=== PATIENT | male | born 1960 | race Hispanic/Latino ===

== ENCOUNTER 2018-04-25 11:43 | Inpatient (IN) | payer MEDICARE ==
[2018-04-25 11:44] VITALS: BMI 27.4
[2018-04-25 13:46] LABS: BASO % 0.5 % (0.0-2.0); EOS % 0.6 % (0.0-4.0); HEMOGLOBIN 14.3 g/dL (12.0-18.0); LYMPH # 1.4 K/uL (1.0-4.3); LYMPH % 24.7 % (20.0-40.0); MEAN CELL VOLUME 86.8 fl (80.0-94.0); MEAN CORPUSCULAR HEMOGLOBIN 29.4 pg (27.0-31.0); MEAN CORPUSCULAR HGB CONC 33.9 g/dL (33.0-37.0); MEAN PLATELET VOLUME 9.2 fl (7.2-11.7); MONO # 0.8 K/uL (0.0-0.8); MONO % 12.9 % (0.0-10.0); NEUT # 3.6 K/uL (1.8-7.0); NEUT % 61.3 % (50.0-75.0); NRBC % 0.1 % (0.0-0.0); RBC 4.85 Mil/uL (4.40-5.90); RED CELL DISTRIBUTION WIDTH 15.6 % (11.5-14.5); WHITE BLOOD COUNT 5.8 K/uL (4.8-10.8)
[2018-04-25 13:56] LABS: ALB/GLOB RATIO 1.3 (1.0-2.1); ALBUMIN 4.1 g/dL (3.5-5.0); ALT/SGPT 28 U/L (21-72); AST/SGOT 16 U/L (17-59); BLOOD UREA NITROGEN 15 mg/dl (9-20); CALCIUM 9.2 mg/dL (8.4-10.2); GFR AFRICAN-AMERICAN > 60; GFR NON-AFRICAN AMERICAN 57
[2018-04-25 14:03] LABS: BARBITURATES, UR NEGATIVE (NEGATIVE); BENZODIAZEPINES, UR NEGATIVE (NEGATIVE); OPIATES, UR NEGATIVE (NEGATIVE); PHENCYCLIDINE, UR NEGATIVE (NEGATIVE); URINE BILIRUBIN NEGATIVE (NEGATIVE); URINE BLOOD NEGATIVE (NEGATIVE); URINE CLARITY CLEAR (Clear); URINE COLOR STRAW (YELLOW); URINE GLUCOSE (UA) NEG (Normal); URINE LEUKOCYTE ESTERASE NEG Leu/uL (Negative); URINE PROTEIN NEGATIVE (NEGATIVE); URINE UROBILINOGEN 0.2-1.0 mg/dL (0.2-1.0)
[2018-04-25] MEDS ORDERED: Bismuth Subsalicylate 262 mg/15 ml Sus (240 ml) PO PRN (14:11)
[2018-04-25] MEDS ORDERED: Magnesium Hydroxide Susp 30 ml UD PO PRN (14:11)
[2018-04-25] MEDS ORDERED: Alum-Mag Hydrox-Simethicone Susp (30 mL) PO PRN (14:11)
--- NOTE | 2018-04-25 14:43 | RAD ---
HISTORY: clearance COMPARISON: No prior. FINDINGS: LUNGS: The lungs are well inflated and clear. No pleural effusion or pneumothorax. PLEURA: No significant pleural effusion identified, no pneumothorax apparent. CARDIOVASCULAR: Normal. OSSEOUS STRUCTURES: No significant abnormalities. VISUALIZED UPPER ABDOMEN: Normal. OTHER FINDINGS: None. IMPRESSION: No active pulmonary disease.
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
--- NOTE | 2018-04-25 18:23 | PCM.BM ---
<Marilyn Welsh - Last Filed: 04/25/18 18:21> Treatment assets and liabiliti Patient Assests: ADL independent, good past tx response Patient Liabilities: relationship conflicts - Milieu Protocol Maintain good personal hygiene: daily Encourage regular showers, every shift Remind patient to perform daily oral care, every shift Assist patient to perform ADL's Conduct patient checks and document Observation sheet: Q15 minutes Maintain personal safety: every shift Educate patient to report safety concerns to staff, every shift Monitor environment for contraband/sharps Medication safety: Monitor for expected outcome, potential side effects: every shift, Assess barriers to learning: every shift, Assess readiness for medication education: every shift <Mariza Dempsey - Last Filed: 04/27/18 14:56> Treatment assets and liabiliti Patient Assests: adapts well, cooperative, educated, insightful, motivated, ADL independent, good support system (limited- SERV staff/AA peers identified as primary supports), negotiates basic needs, good past tx response Patient Liabilities: poor support system (no significant communication with family ; discord with residential peer), relationship conflicts Family Contact Family involvement: Famliy/SO not involved - Outside Agency Agency 1 Care involvment: Following patient during stay, Information-sharing, Other Agency contact name: [facility] Agency contact number: [phone] - Goals for Treatment Patient goals for treatment: Patient to continue stabilization on 3NP through medication management and group/supportive therapy to improve sxs of depression , alleviate OCD, and eliminate SI. Patient to be encouraged to attend groups regularly to promote self-awareness, maintained sobriety, and improve insight, compliance, coping skills and self-esteem. Patient to be provided with referral for appropriate level of aftercare to reduce risk of future hospitalizations and ensure safety in the community. Discharge/Continuing Care - Education Needs Education Needs: Patient Medication, Patient Coping Skills, Patient Community resources, Patient Aftercare Safety Plan - Discharge Discharge Criteria: Tolerates medication w/o severe side effects, Free of Suicidal thoughts, Free of paranoid thoughts, Free of agitation, Normal sleep pattern, Ability to care for self, Reduction of target symptoms Discharge to:: Retirement <Jp Hawkins - Last Filed: 04/28/18 12:01> Discharge/Continuing Care - Treatment Team Participation Patient/Family/SO Statement: 04/28/18 12:01 Pt was seen in treatment team today. Pt presented as depressed with lethargic psychomotor movements with slow, soft speech and poor eye contact. Pt denied current depression despite this presentation and said that the Klonopin has been helpful. Dr. Virk explained that his Wellbutrin will be lowered and the Anafranil will be raised to a target of 100mg. Pt reported feeling better than on admission, but agreed that continued stay was needed. Pt reported he sees Dr. Sumner in [place] for outpatient treatment and would like to continue to see him upon discharge. Discussed with Family/SO: No Was Patient/Family/SO present at Treatment Team Meeting: Yes <Jozef Martinez - Last Filed: 05/02/18 12:01> - Diagnosis (1) Depression Status: Acute Interventions: psychotherapy, pharmacotherapy 05/02/18 12:00
[2018-04-25 19:41] VITALS: O2SAT 98
[2018-04-26] MEDS: Levothyroxine 88 MCG TAB PO SCH (06:39)
[2018-04-26] MEDS ORDERED: buPROPion SR 150 MG TABLET PO SCH (09:00)
[2018-04-26 10:25] LABS: T4 7.34 ug/dl (5.5-11.0)
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
--- NOTE | 2018-04-26 17:25 | CARD ---
APPROVED REPORT EKG Measurement Heart [id number] <Conclusion> Sinus bradycardia Otherwise normal ECG
[2018-04-26] MEDS: Pravastatin Sodium 40 MG TAB PO SCH ×3 (21:09→21:52)
[2018-04-26 21:20] LABS: FOLATE 8.9 ng/mL
[2018-04-27] MEDS: Levothyroxine 88 MCG TAB PO SCH (06:54)
--- NOTE | 2018-04-27 16:09 | PCM.PYCHPN ---
Psychiatric Progress Note - Psychiatric Progress Note Patient seen today, length of contact: pt evaluated discussed with team chart reviewed Patient Chief Complaint: I could not control my anxiety Problems Identified/Issues Discussed: pt evaluated, presenting with anxious and depressed mood, constricted affect, dysphoric , stated at times exhausted because of the OBSESSIVE AND compulsive rituals, continues to be paranoid and guarded, discussed increasing dose of klonopin , also cross titrating wellbutrin with clomipramine. no reported current side effects, encouraged to attend groups , CBt provided pt denied any current active suicidal ideation denied command hallucinations Medical Problems: multiple inpatient hospitalizations since age 24 DSM 5 Symptoms Update: major depression OCD Medication Change: Yes (increase clomipramine) Medical Record Reviewed: Yes Mental Status Examination - Cognitive Function Orientation: Person, Place, Situation Memory: Intact Attention: WNL Concentration: Poor Association: WNL Fund of Knowledge: WNL Decription of patient's judgement and insights: partial insight poor judgment - Mood Mood: Depressed, Anxious - Affect Affect: Constricted, Depressed - Speech Speech: Soft - Formal Thought Process Formal Thought Process: Paranoia, Circumstantial Psychotic Thoughts and Behaviors: pt reported paranoid delusions towards other peers - Suicidal Ideation Suicidal Ideation: No - Homicidal Ideation Homicidal Ideation: No Goal/Treatment Plan - Goal/Treatment Plan Need for Continued Stay: Remain at risks for inpatient hospitalization, Severe depression anxiety, Discharge may exacerbated symptoms Progress Toward Problem(s) and Goals/Treatment Plan: increase clomipramine 50mg qhs, increase gradually decrease wellbutrin 75mg daily seroquel 150mg qhs increase gradually klonopin 0.5mg tid CBT group and supportive therapy
[2018-04-27] MEDS: Pravastatin Sodium 40 MG TAB PO SCH (21:04)
[2018-04-28] MEDS: Levothyroxine 88 MCG TAB PO SCH (09:50)
--- NOTE | 2018-04-28 14:02 | PCM.PYCHPN ---
Psychiatric Progress Note - Psychiatric Progress Note Patient seen today, length of contact: pt evaluated discussed with team chart reviewed Patient Chief Complaint: I am less anxious with the klonopin but I still feel down Problems Identified/Issues Discussed: pt evaluated, with treatment team . reported mood less anxious and less paranoid yet continues to have OCD rituals and obsessions, pt continues to feel depressed, relates that to feeling disabled by anxiety and due to conflict he has at the senior care, Cbt provided , discussing with pt coping skills with anxiety , also discussed gradual cross titrating wellbutrin with clomipramine , no reported current side effects of medications pt denied any current active suicidal ideation denied command hallucinations, denied homicidal ideation Medical Problems: multiple inpatient hospitalizations since age 24 DSM 5 Symptoms Update: major depression PTSD OCD Medication Change: Yes (increase clomipramine) Medical Record Reviewed: Yes Mental Status Examination - Cognitive Function Orientation: Person, Place, Situation Memory: Intact Attention: WNL Concentration: Poor Association: WNL Fund of Knowledge: WNL Decription of patient's judgement and insights: partial insight poor judgment - Mood Mood: Depressed, Anxious - Affect Affect: Constricted, Depressed - Speech Speech: Soft - Formal Thought Process Formal Thought Process: Paranoia, Circumstantial Psychotic Thoughts and Behaviors: pt reported paranoid delusions towards other peers - Suicidal Ideation Suicidal Ideation: No - Homicidal Ideation Homicidal Ideation: No Goal/Treatment Plan - Goal/Treatment Plan Need for Continued Stay: Remain at risks for inpatient hospitalization, Severe depression anxiety, Discharge may exacerbated symptoms Progress Toward Problem(s) and Goals/Treatment Plan: increase clomipramine 50mg qhs, AND 25MG DAILY DISCONTINUE wellbutrin seroquel 150mg qhs increase gradually klonopin 0.5mg tid CBT group and supportive therapy
[2018-04-28] MEDS: Pravastatin Sodium 40 MG TAB PO SCH (21:12)
--- NOTE | 2018-04-29 09:19 | PCM.PYCHPN ---
Psychiatric Progress Note - Psychiatric Progress Note Patient seen today, length of contact: pt evaluated discussed with team chart reviewed Patient Chief Complaint: pt has remained very depressed and still obsessed with past trauma and still is high risk and still hopeless with poor insight and need further stabilization Medication Change: Yes (increase clomipramine) Medical Record Reviewed: Yes Mental Status Examination - Cognitive Function Orientation: Person, Place, Situation Memory: Intact Attention: WNL Concentration: Poor Association: WNL Fund of Knowledge: WNL - Mood Mood: Depressed, Anxious - Affect Affect: Constricted, Depressed - Speech Speech: Soft - Formal Thought Process Formal Thought Process: Paranoia, Circumstantial - Suicidal Ideation Suicidal Ideation: No - Homicidal Ideation Homicidal Ideation: No Goal/Treatment Plan - Goal/Treatment Plan Need for Continued Stay: Remain at risks for inpatient hospitalization, Severe depression anxiety, Discharge may exacerbated symptoms Progress Toward Problem(s) and Goals/Treatment Plan: will continue to titrate anafranil and seroquel as needed to stabilize depression,PTSD and OCD. D/c plans as per dr cabrales
[2018-04-29] MEDS: Levothyroxine 88 MCG TAB PO SCH (10:02)
[2018-04-29] MEDS: Pravastatin Sodium 40 MG TAB PO SCH (21:09)
[2018-04-30] MEDS: Levothyroxine 88 MCG TAB PO SCH (06:45)
[2018-04-30] MEDS: Pravastatin Sodium 40 MG TAB PO SCH (21:12)
[2018-05-01] MEDS: Levothyroxine 88 MCG TAB PO SCH (06:49)
--- NOTE | 2018-05-01 15:46 | PCM.PYCHPN ---
Psychiatric Progress Note - Psychiatric Progress Note Patient seen today, length of contact: pt evaluated discussed with team chart reviewed Patient Chief Complaint: I still feel anxious and I get paranoid Problems Identified/Issues Discussed: pt evaluated, reported continues to feel paranoid towards other patients, discussed increasing the seroquel gradually, pt reported that he has experienced less rituals and more clear mind with the clomipramine, no reported side effects, however he has decreased energy with discontinuing of the wellbutrin, discussed adding wellbutrin 75mg, will also follow up on EKG with the increase in clomipramine pt denied any current active suicidal ideation denied command hallucinations, denied homicidal ideation Medical Problems: multiple inpatient hospitalizations since age 24 DSM 5 Symptoms Update: major depression obsessive compulsive disorder post traumatic stress disorder Medication Change: Yes (increase clomipramine) Medical Record Reviewed: Yes Mental Status Examination - Cognitive Function Orientation: Person, Place, Situation Memory: Intact Attention: WNL Concentration: Poor Association: WNL Fund of Knowledge: WNL - Mood Mood: Depressed, Anxious - Affect Affect: Constricted, Depressed - Speech Speech: Soft - Formal Thought Process Formal Thought Process: Paranoia, Circumstantial - Suicidal Ideation Suicidal Ideation: No - Homicidal Ideation Homicidal Ideation: No Goal/Treatment Plan - Goal/Treatment Plan Need for Continued Stay: Remain at risks for inpatient hospitalization, Severe depression anxiety, Discharge may exacerbated symptoms Progress Toward Problem(s) and Goals/Treatment Plan: increase clomipramine 50mg qhs, AND 50 MG DAILY start wellbutrin 75 increase seroquel 200mg qhs klonopin 0.5mg tid CBT group and supportive therapy
[2018-05-01] MEDS: Pravastatin Sodium 40 MG TAB PO SCH (21:09)
[2018-05-02] MEDS: Levothyroxine 88 MCG TAB PO SCH (06:53)
--- NOTE | 2018-05-02 08:25 | CP.PCM.HP ---
History of Present Illness - History of Present Illness History of Present Illness: HPI: 57 y/o man pmh of depression, hypothyroidism, and HLD is admitted to voluntary inpatient psychiatry for major depression w/ suicidal ideation. Patient has history of previous suicide attempts and recently had plan to jump off a bridge. Patient was sent from longterm for treatment. Patient denies headaches, chest pain, SOB, abdominal pain, nausea, vomiting, diarrhea, dysuria , or fever. PMD: Dr. Valentin PMH: depression, hypothyroidism, and HLD meds: see med list allergies: penicillin PSH: none Fam: denies SOC: denies smoking, alcohol, and drugs ROS: 12 points assessed and negative unless otherwise reported in HPI Present on Admission - Present on Admission Any Indicators Present on Admission: No History of DVT/PE: No History of Uncontrolled Diabetes: No Urinary Catheter: No Decubitus Ulcer Present: No Review of Systems - Review of Systems All systems: reviewed and no additional remarkable complaints except - Constitutional Constitutional: absent: Chills, Fever, Headache - EENT Eyes: absent: Change in Vision - Cardiovascular Cardiovascular: absent: Chest Pain - Respiratory Respiratory: absent: Dyspnea - Gastrointestinal Gastrointestinal: absent: Abdominal Pain, Diarrhea, Nausea, Vomiting - Genitourinary Genitourinary: absent: Dysuria - Integumentary Integumentary: absent: Rash - Psychiatric Psychiatric: As Per HPI Past Patient History - Past Medical History & Family History Past Medical History?: Yes - Past Social History Smoking Status: Never Smoked - CARDIAC Hx Hypercholesterolemia: Yes Hx Hypertension: No - PULMONARY Hx Respiratory Disorders: No Hx Tuberculosis: No - NEUROLOGICAL Hx Seizures: No - HEENT Hx HEENT Problems: No - RENAL Hx Chronic Kidney Disease: No - ENDOCRINE/METABOLIC Hx Hypothyroidism: Yes - HEMATOLOGICAL/ONCOLOGICAL Hx Anemia: Yes Hx Human Immunodeficiency Virus (HIV): No - INTEGUMENTARY Hx Dermatological Problems: No - MUSCULOSKELETAL/RHEUMATOLOGICAL Hx Fractures: Yes (LEFT HAND) - GASTROINTESTINAL Hx Gastritis: Yes - GENITOURINARY/GYNECOLOGICAL Hx Sexually Transmitted Disorders: No - PSYCHIATRIC Hx Anxiety: Yes Hx Depression: Yes Hx Post Traumatic Stress Disorder: Yes - SURGICAL HISTORY Hx Surgeries: No - ANESTHESIA Hx Anesthesia: No Hx Anesthesia Reactions: No Hx Malignant Hyperthermia: No Meds Allergies/Adverse Reactions: Allergies Allergy/AdvReac Type Severity Reaction Status Date / Time Penicillins Allergy RASH Verified 04/25/18 12:10 Physical Exam - Constitutional Appears: Non-toxic, No Acute Distress - Head Exam Head Exam: ATRAUMATIC, NORMAL INSPECTION, NORMOCEPHALIC - Eye Exam Eye Exam: Normal appearance - ENT Exam ENT Exam: Mucous Membranes Moist - Neck Exam Neck exam: Positive for: Full Rom. Negative for: Tenderness - Respiratory Exam Respiratory Exam: Clear to Auscultation Bilateral. absent: Accessory Muscle Use , Decreased Breath Sounds, Rales, Rhonchi, Wheezes, Respiratory Distress - Cardiovascular Exam Cardiovascular Exam: REGULAR RHYTHM, RRR. absent: Tachycardia - GI/Abdominal Exam GI & Abdominal Exam: Normal Bowel Sounds, Soft. absent: Distended, Tenderness - Extremities Exam Extremities exam: Positive for: normal inspection. Negative for: calf tenderness - Neurological Exam Neurological exam: Alert, Oriented x3 - Skin Skin Exam: Dry, Intact, Normal Color, Warm Results - Vital Signs Recent Vital Signs: Last Vital Signs Temp 97.0 F L 05/01/18 09:00 Pulse 78 05/01/18 09:00 Resp 18 05/01/18 09:00 BP 112/65 05/01/18 09:00 Pulse Ox 98 04/25/18 19:42 - Labs Result Diagrams: 04/25/18 13:15 04/25/18 13:15 Assessment & Plan (1) Suicidal ideation Status: Acute (2) Major depressive disorder Status: Chronic (3) Hypothyroidism Status: Chronic (4) HLD (hyperlipidemia) Status: Chronic - Assessment and Plan (Free Text) Plan: c/w present management as per psychiatry team c/w synthroid 88 mcg PO daily c/w pravastatin 40 mg PO HS monitor for acute changes
--- NOTE | 2018-05-02 12:29 | PCM.PYCHPN ---
Psychiatric Progress Note - Psychiatric Progress Note Patient seen today, length of contact: pt evaluated discussed with team chart reviewed Patient Chief Complaint: I am less paranoid ,but I think the wellbutrin made me anxious again Problems Identified/Issues Discussed: pt evaluated,reported improved sleep with the increase in seroquel also feeling less paranoid, pt yesterday requested to be back on wellbutrin however today reported increased anxiety with it, discussed to discontinue wellbutrin and continue with clomipramine, also discussed having EKG to be done with the increase in the dose of clomipramine , patient stated feeling his mind and thought process more clear with clomipramine and reported decrease in the compulsive rituals, pt denied any current active suicidal ideation denied command hallucinations, denied homicidal ideation Medical Problems: multiple inpatient hospitalizations since age 24 DSM 5 Symptoms Update: major depression obsessive compulsive disorder post traumatic stress disorder Medication Change: Yes (discontinue wellbutrin) Medical Record Reviewed: Yes Mental Status Examination - Cognitive Function Orientation: Person, Place, Situation Memory: Intact Attention: WNL Concentration: Poor Association: WNL Fund of Knowledge: WNL - Mood Mood: Depressed, Anxious - Affect Affect: Constricted, Depressed - Speech Speech: Soft - Formal Thought Process Formal Thought Process: Paranoia, Circumstantial - Suicidal Ideation Suicidal Ideation: No - Homicidal Ideation Homicidal Ideation: No Goal/Treatment Plan - Goal/Treatment Plan Need for Continued Stay: Remain at risks for inpatient hospitalization, Severe depression anxiety, Discharge may exacerbated symptoms Progress Toward Problem(s) and Goals/Treatment Plan: clomipramine 50mg qhs, and 50mg daily, follow up EKG discontinue wellbutrin increase seroquel 300mg qhs klonopin 0.5mg tid CBT group and supportive therapy
--- NOTE | 2018-05-02 15:07 | CARD ---
APPROVED REPORT EKG Measurement Heart [id number] <Conclusion> Sinus bradycardia Possible Lateral infarct, age undetermined Abnormal ECG
[2018-05-02] MEDS: Pravastatin Sodium 40 MG TAB PO SCH (21:56)
[2018-05-03 08:44] VITALS: RESP 18
[2018-05-03] MEDS: Levothyroxine 88 MCG TAB PO SCH (08:49)
--- NOTE | 2018-05-03 12:15 | CP.PCM.PN ---
Subjective - Date & Time of Evaluation Date of Evaluation: 05/03/18 Time of Evaluation: 11:00 - Subjective Subjective: Patient seen and examined this morning at bedside w/ Dr. Baugh. There are no acute events overnight, NAD. The patient reports feeling better. Patient denies suicidal/homicidal ideation. The patient denies headaches, chest pain, SOB, abdominal pain, nausea, vomiting, diarrhea, dysuria, or fever. Objective - Vital Signs/Intake and Output Vital Signs (last 24 hours): Temp Pulse Resp BP Pulse Ox 96.8 F L 76 18 122/60 98 05/03/18 09:00 05/03/18 09:00 05/03/18 09:00 05/03/18 09:00 04/25/18 19:42 - Medications Medications: Current Medications Acetaminophen (Tylenol 325mg Tab) 650 mg PO Q4 PRN PRN Reason: Pain, moderate (4-7) Al Hydrox/Mg Hydrox/Simethicone (Maalox Plus 30 Ml) 30 ml PO Q4 PRN PRN Reason: Dyspepsia Bismuth Subsalicylate (Pepto-Bismol) 524 mg PO Q4 PRN PRN Reason: Diarrhea Clomipramine HCl (Anafranil) 50 mg PO [facility] Last Admin: 05/01/18 21:09 Dose: 50 mg Clomipramine HCl (Anafranil) 50 mg PO DAILY [facility] Last Admin: 05/03/18 08:49 Dose: 50 mg Clonazepam (Klonopin) 0.5 mg PO TID [facility] Last Admin: 05/03/18 08:49 Dose: 0.5 mg Haloperidol (Haldol) 5 mg PO Q4H PRN PRN Reason: anxiety/agitation Haloperidol Lactate (Haldol) 5 mg IM Q4H PRN PRN Reason: Agitation Levothyroxine Sodium (Synthroid) 88 mcg PO DAILY@0630 [facility] Last Admin: 05/03/18 08:49 Dose: 88 mcg Magnesium Hydroxide (Milk Of Magnesia) 30 ml PO HS PRN PRN Reason: Constipation Pravastatin Sodium (Pravachol) 40 mg PO [facility] Last Admin: 05/02/18 21:56 Dose: 40 mg Quetiapine Fumarate (Seroquel) 300 mg PO [facility] Last Admin: 05/02/18 21:56 Dose: 300 mg - Labs Labs: 04/25/18 13:15 04/25/18 13:15 - Constitutional Appears: Non-toxic, No Acute Distress - Head Exam Head Exam: ATRAUMATIC, NORMAL INSPECTION, NORMOCEPHALIC - Eye Exam Eye Exam: Normal appearance - ENT Exam ENT Exam: Mucous Membranes Moist - Neck Exam Neck Exam: Full ROM. absent: Tenderness - Respiratory Exam Respiratory Exam: Clear to Ausculation Bilateral. absent: Accessory Muscle Use , Decreased Breath Sounds, Rales, Rhonchi, Wheezes, Respiratory Distress - Cardiovascular Exam Cardiovascular Exam: REGULAR RHYTHM, RRR. absent: Tachycardia - Extremities Exam Extremities Exam: Normal Inspection. absent: Calf Tenderness - Neurological Exam Neurological Exam: Alert, Awake, Normal Gait, Oriented x3 - Skin Skin Exam: Dry, Intact, Normal Color, Warm Assessment and Plan (1) Suicidal ideation Status: Acute (2) Major depressive disorder Status: Chronic (3) Hypothyroidism Status: Chronic (4) HLD (hyperlipidemia) Status: Chronic - Assessment and Plan (Free Text) Plan: c/w present management as per psychiatry team afebriel, non-tachycardic, normotensive medically stable from medicine standpoint c/w synthroid 88 mcg PO daily c/w pravastatin 40 mg PO HS monitor for acute changes
--- NOTE | 2018-05-03 15:36 | PCM.PYCHPN ---
Psychiatric Progress Note - Psychiatric Progress Note Patient seen today, length of contact: pt evaluated discussed with team chart reviewed Patient Chief Complaint: I am less anxious without the wellbutrin Problems Identified/Issues Discussed: pt evaluated,reported improved sleep and clearing off of the paranoid delusions with the increase in seroquel , pt feeling less anxious with discontinuing the wellbutrin, stated decreased rituals, compulsions and more clear thought process with clomipramine , pt contemplating starting partial program, seen more interactive with other peers , attending groups, no current side effects of medicaions pt denied any current active suicidal ideation denied command hallucinations, denied homicidal ideation Medical Problems: multiple inpatient hospitalizations since age 24 DSM 5 Symptoms Update: obsessive compulsive disorder major depression PTSD Medication Change: No Medical Record Reviewed: Yes Mental Status Examination - Cognitive Function Orientation: Person, Place, Situation Memory: Intact Attention: WNL Concentration: Poor Association: WNL Fund of Knowledge: WNL - Mood Mood: Depressed, Anxious - Affect Affect: Constricted, Depressed - Speech Speech: Soft - Formal Thought Process Formal Thought Process: Paranoia, Circumstantial - Suicidal Ideation Suicidal Ideation: No - Homicidal Ideation Homicidal Ideation: No Goal/Treatment Plan - Goal/Treatment Plan Need for Continued Stay: Remain at risks for inpatient hospitalization, Severe depression anxiety, Discharge may exacerbated symptoms Progress Toward Problem(s) and Goals/Treatment Plan: clomipramine 50mg qhs, and 50mg daily, EKG discussed with PMD cleared to be normal seroquel 300mg qhs klonopin 0.5mg tid CBT group and supportive therapy
[2018-05-03] MEDS: Pravastatin Sodium 40 MG TAB PO SCH (21:32)
[2018-05-04] MEDS: Levothyroxine 88 MCG TAB PO SCH (06:29)
--- NOTE | 2018-05-04 15:45 | PCM.PYCHPN ---
Psychiatric Progress Note - Psychiatric Progress Note Patient seen today, length of contact: pt evaluated discussed with team chart reviewed Patient Chief Complaint: I am feeling better with clomipramine Problems Identified/Issues Discussed: pt evaluated,reported better mood, less anxious, affect calmer, no current paranoid delusions, thought process more clear, no reported side effects of medications , decrease in the OCD compulsions , pt denied any current active suicidal ideation denied command hallucinations, denied homicidal ideation Medical Problems: multiple inpatient hospitalizations since age 24 DSM 5 Symptoms Update: major depression recurrent obsessive compulsive disorder Post traumatic stress disorder Medication Change: No Medical Record Reviewed: Yes Mental Status Examination - Cognitive Function Orientation: Person, Place, Situation Memory: Intact Attention: WNL Concentration: Poor Association: WNL Fund of Knowledge: WNL - Mood Mood: Depressed, Anxious - Affect Affect: Constricted, Depressed - Speech Speech: Soft - Formal Thought Process Formal Thought Process: Paranoia, Circumstantial - Suicidal Ideation Suicidal Ideation: No - Homicidal Ideation Homicidal Ideation: No Goal/Treatment Plan - Goal/Treatment Plan Need for Continued Stay: Remain at risks for inpatient hospitalization, Severe depression anxiety, Discharge may exacerbated symptoms Progress Toward Problem(s) and Goals/Treatment Plan: clomipramine 50mg qhs, and 50mg daily, seroquel 300mg qhs klonopin 0.5mg tid CBT group and supportive therapy
[2018-05-04] MEDS: Pravastatin Sodium 40 MG TAB PO SCH (21:08)
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
[2018-05-05 14:32] VITALS: BP 125/99; PULSE 74; TEMP 97.1
== END 2018-05-05 14:32 | disposition home or self-care (01) | DRG 885 ==
LOC: H.ER 11:43 → H.ERHOLD 14:14 → H.PSYCH 17:35
PROVIDERS: ADMIT Psychiatry & Neurology Psychiatry; ATTEND Psychiatry & Neurology Psychiatry
PROC: GZHZZZZ Group Psychotherapy (ICD-10-PCS; principal; 2018-04-25)
PROC: GZ58ZZZ Individual Psychotherapy, Cognitive-Behavioral (ICD-10-PCS; 2018-04-25)
PROC: GZ56ZZZ Individual Psychotherapy, Supportive (ICD-10-PCS; 2018-04-25)
DX: F33.3 Major depressive disorder, recurrent, severe with psychotic symptoms (principal); R45.851 Suicidal ideations; F43.10 Post-traumatic stress disorder, unspecified; E03.9 Hypothyroidism, unspecified; E78.5 Hyperlipidemia, unspecified; K29.70 Gastritis, unspecified, without bleeding; Z88.0 Allergy status to penicillin; E78.00 Pure hypercholesterolemia, unspecified; F42.9 Obsessive-compulsive disorder, unspecified

== ENCOUNTER 2018-10-10 11:26 | Inpatient (IN) | payer MEDICARE ==
[2018-10-10 11:32] VITALS: BMI 27.0
--- NOTE | 2018-10-10 11:49 | ED PDOC ---
HPI: Psych/Substance Abuse Time Seen by Provider: 10/10/18 11:38 Chief Complaint (Nursing): Psychiatric Evaluation Chief Complaint (Provider): Psychiatric Evaluation History Per: Patient History/Exam Limitations: no limitations Onset/Duration Of Symptoms: Days (x2) Associated Symptoms: Depression, Suicidal Thoughts, Suicidal Plan Additional Complaint(s): 58 years old male presents to ER for evaluation of depression, suicidal ideation and plan of [place] 2 days ago. PMD: non provided Past Medical History Reviewed: Historical Data, Nursing Documentation, Vital Signs Vital Signs: Last Vital Signs Temp 98 F 10/10/18 11:30 Pulse 75 10/10/18 11:30 Resp BP 130/77 10/10/18 11:30 Pulse Ox 98 10/10/18 11:30 - Medical History PMH: Anemia, Anxiety, Depression, Fractures (LEFT HAND), Gastritis, Hypercholesterolemia, Hypothyroidism, Post Traumatic Stress Disorder Denies: Diabetes, Hepatitis, HIV, HTN, Chronic Kidney Disease, Seizures, Sexually Transmitted Disease - Surgical History Surgical History: Endoscopy - Family History Family History: States: Unknown Family Hx - Immunization History Hx Tetanus Toxoid Vaccination: No Hx Influenza Vaccination: No Hx Pneumococcal Vaccination: No - Home Medications Home Medications: Ambulatory Orders Medication Instructions Recorded Ferrous Sulfate [Feosol] 325 mg PO Q12 04/25/18 Levothyroxine [Synthroid] 88 mcg PO DAILY 04/25/18 Pravastatin Sodium [Pravachol] 40 mg PO HS 04/25/18 QUEtiapine [SEROquel] 300 mg PO HS 30 Days #30 tab 05/05/18 clomiPRAMINE [Anafranil] 50 mg PO DAILY 30 Days #30 cap 05/05/18 clomiPRAMINE [Anafranil] 50 mg PO HS 30 Days #30 cap 05/05/18 clonazePAM [Klonopin] 0.5 mg PO TID #90 tab 05/05/18 - Allergies Allergies/Adverse Reactions: Allergies Allergy/AdvReac Type Severity Reaction Status Date / Time Penicillins Allergy RASH Verified 04/25/18 12:10 Review of Systems ROS Statement: Except As Marked, All Systems Reviewed And Found Negative Psych: Positive for: Depression, Suicidal ideation (and plan) Physical Exam - Reviewed Nursing Documentation Reviewed: Yes - Physical Exam Appears: Positive for: Non-toxic, No Acute Distress Head Exam: Positive for: ATRAUMATIC, NORMOCEPHALIC Skin: Positive for: Normal Color, Warm, Dry Eye Exam: Positive for: Normal appearance, EOMI, PERRL Neck: Positive for: Normal, Painless ROM, Supple Cardiovascular/Chest: Positive for: Regular Rate, Rhythm. Negative for: Murmur Respiratory: Positive for: Normal Breath Sounds. Negative for: Respiratory Distress Gastrointestinal/Abdominal: Positive for: Normal Exam, Soft. Negative for: Tenderness Back: Positive for: Normal Inspection. Negative for: L CVA Tenderness, R CVA Tenderness Extremity: Positive for: Normal ROM. Negative for: Tenderness, Swelling Neurologic/Psych: Positive for: Alert, Oriented (x3) - Laboratory Results Result Diagrams: 10/10/18 12:05 10/10/18 12:05 - ECG O2 Sat by Pulse Oximetry: 98 (RA) Pulse Ox Interpretation: Normal Medical Decision Making Medical Decision Making: Time: 1144 Initial Plan: --EKG --Alcohol Serum --CMP --Drug screen --Urine dipstick --CBC --Chest x-ray --1:1 Observation Scribe Attestation: Documented by Lorna Bustamante, acting as a scribe for Jose Quarles MD. Medically stable for psychiatric admission Provider Scribe Attestation: All medical record entries made by the Scribe were at my direction and personally dictated by me. I have reviewed the chart and agree that the record accurately reflects my personal performance of the history, physical exam, medical decision making, and the department course for this patient. I have also personally directed, reviewed, and agree with the discharge instructions and disposition. Disposition - Clinical Impression Clinical Impression: Depression - Patient ED Disposition Is Patient to be Admitted: Yes - Disposition Disposition Time: 13:18 Condition: STABLE Forms: [employer] (Samoan) - Pt Status Changed To: Hospital Disposition Of: Inpatient - Admit Certification Admit to Inpatient:: After my assessment, the patient will require hospitalization for at least two midnights. This is because of the severity of symptoms shown, intensity of services needed, and/or the medical risk in this patient being treated as an outpatient. - POA Present On Arrival: None
[2018-10-10 12:18] LABS: BASO # 0.1 K/uL (0.0-0.2); EOS % 0.4 % (0.0-4.0); HEMOGLOBIN 14.6 g/dL (12.0-18.0); LYMPH # 1.4 K/uL (1.0-4.3); LYMPH % 24.3 % (20.0-40.0); MEAN CELL VOLUME 89.1 fl (80.0-94.0); MEAN CORPUSCULAR HEMOGLOBIN 29.4 pg (27.0-31.0); MEAN PLATELET VOLUME 9.4 fl (7.2-11.7); MONO # 0.9 K/uL (0.0-0.8); MONO % 15.5 % (0.0-10.0); NEUT # 3.5 K/uL (1.8-7.0); NEUT % 58.8 % (50.0-75.0); NRBC % 0.1 % (0.0-0.0); RBC 4.99 Mil/uL (4.40-5.90); RED CELL DISTRIBUTION WIDTH 15.9 % (11.5-14.5); WHITE BLOOD COUNT 5.9 K/uL (4.8-10.8)
[2018-10-10 12:31] LABS: ALB/GLOB RATIO 1.6 (1.0-2.1); ALBUMIN 4.6 g/dL (3.5-5.0); ALT/SGPT 16 U/L (21-72); AST/SGOT 16 U/L (17-59); BLOOD UREA NITROGEN 15 mg/dl (9-20); CALCIUM 9.6 mg/dL (8.4-10.2); GFR NON-AFRICAN AMERICAN 57
[2018-10-10 12:47] LABS: BARBITURATES, UR NEGATIVE (NEGATIVE); BENZODIAZEPINES, UR NEGATIVE (NEGATIVE); OPIATES, UR NEGATIVE (NEGATIVE); PHENCYCLIDINE, UR NEGATIVE (NEGATIVE)
--- NOTE | 2018-10-10 13:38 | RAD ---
Date of service: 10/10/2018 HISTORY: Depression COMPARISON: No prior. TECHNIQUE: Chest PA and lateral FINDINGS: LUNGS: No active pulmonary disease. PLEURA: No significant pleural effusion identified. No pneumothorax apparent. CARDIOVASCULAR: No aortic atherosclerotic calcification present. Normal cardiac size. No pulmonary vascular congestion. OSSEOUS STRUCTURES: No significant abnormalities. VISUALIZED UPPER ABDOMEN: Normal. OTHER FINDINGS: None. IMPRESSION: No active disease.
[2018-10-10] MEDS ORDERED: DiphenhydrAMINE 50 mg/ml Inj IM PRN (14:37)
[2018-10-10] MEDS ORDERED: Magnesium Hydroxide Susp 30 ml UD PO PRN (14:37)
[2018-10-10] MEDS ORDERED: Alum-Mag Hydrox-Simethicone Susp (30 mL) PO PRN (14:37)
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
--- NOTE | 2018-10-10 19:46 | CARD ---
APPROVED REPORT Date of service: 10/10/2018 EKG Measurement Heart [id number] <Conclusion> Normal sinus rhythm Possible Left atrial enlargement Borderline ECG
[2018-10-10] MEDS: QUEtiapine 300 MG TABLET PO SCH (21:10)
[2018-10-11] MEDS: Levothyroxine 88 MCG TAB PO SCH (06:23)
[2018-10-11 06:57] LABS: BASO % 0.7 % (0.0-2.0); EOS % 0.3 % (0.0-4.0); HEMOGLOBIN 13.7 g/dL (12.0-18.0); LYMPH # 1.6 K/uL (1.0-4.3); LYMPH % 28.1 % (20.0-40.0); MEAN CORPUSCULAR HEMOGLOBIN 28.7 pg (27.0-31.0); MEAN CORPUSCULAR HGB CONC 32.9 g/dL (33.0-37.0); MONO # 1.1 K/uL (0.0-0.8); MONO % 18.5 % (0.0-10.0); NEUT # 3.1 K/uL (1.8-7.0); NEUT % 52.4 % (50.0-75.0); NRBC % 0.1 % (0.0-0.0); RBC 4.79 Mil/uL (4.40-5.90); WHITE BLOOD COUNT 5.8 K/uL (4.8-10.8)
[2018-10-11 07:27] LABS: T4 6.36 ug/dl (5.5-11.0)
[2018-10-11 07:28] LABS: ALB/GLOB RATIO 1.5 (1.0-2.1); ALBUMIN 4.1 g/dL (3.5-5.0); ALT/SGPT 17 U/L (21-72); AST/SGOT 17 U/L (17-59); BLOOD UREA NITROGEN 19 mg/dl (9-20); CALCIUM 9.5 mg/dL (8.4-10.2); GFR NON-AFRICAN AMERICAN 52; HDL CHOLESTEROL 45 MG/DL (30-70); LDL CHOLESTEROL 94 mg/dL (0-129)
[2018-10-11] MEDS: Pravastatin Sodium 40 MG TAB PO SCH (09:09)
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
[2018-10-11] MEDS: buPROPion SR 150 MG TABLET PO SCH (10:08)
[2018-10-11 20:17] LABS: FOLATE 9.7 ng/mL
[2018-10-11] MEDS: QUEtiapine 300 MG TABLET PO SCH (21:16)
[2018-10-12] MEDS: Levothyroxine 88 MCG TAB PO SCH (05:34)
[2018-10-12] MEDS: buPROPion SR 150 MG TABLET PO SCH (08:46)
[2018-10-12] MEDS: Pravastatin Sodium 40 MG TAB PO SCH (08:46)
--- NOTE | 2018-10-12 10:21 | PCM.PYCHPN ---
Psychiatric Progress Note - Psychiatric Progress Note Patient seen today, length of contact: Pt evaluated, case discussed w/ team, chart reviewed Patient Chief Complaint: "I wanted to jump in front of the subway." Problems Identified/Issues Discussed: Patient continues to reports feeling depressed, anxious, w/ ruminating thoughts and paranoia. No current AH/VH/SI/HI. We discussed continued titration of Seroquel. No adverse effects to medications reported. Medication Change: Yes (Increase Seroquel) Medical Record Reviewed: Yes Consults ordered or reviewed: Medicine consult Mental Status Examination - Cognitive Function Orientation: Person, Place, Situation, Time Memory: Intact Attention: WNL Concentration: WNL Association: WNL Fund of Knowledge: WNL - Mood Mood: Depressed, Anxious - Affect Affect: Constricted, Depressed - Speech Speech: Soft - Formal Thought Process Formal Thought Process: Paranoia, Circumstantial Psychotic Thoughts and Behaviors: +Paranoia - Suicidal Ideation Suicidal Ideation: No - Homicidal Ideation Homicidal Ideation: No Goal/Treatment Plan - Goal/Treatment Plan Need for Continued Stay: Remain at risks for inpatient hospitalization, Severe depression anxiety, Discharge may exacerbated symptoms Progress Toward Problem(s) and Goals/Treatment Plan: Major Depressive Disorder w/ Psychotic Features; PTSD -Continue Wellbutrin and Klonopin -Increase Seroquel -Medicine consult -Individual and group therapy -Psychoeducation -Disposition planning Estimated Date of D/C: 10/18/18
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
[2018-10-12] MEDS ORDERED: Pravastatin Sodium 40 MG TAB PO SCH (22:00)
[2018-10-13] MEDS: Levothyroxine 88 MCG TAB PO SCH (06:23)
[2018-10-13] MEDS ORDERED: Levothyroxine 88 MCG TAB PO SCH (06:30)
[2018-10-13] MEDS: buPROPion SR 150 MG TABLET PO SCH (09:57)
[2018-10-13] MEDS: Pravastatin Sodium 40 MG TAB PO SCH (09:57)
--- NOTE | 2018-10-13 12:16 | PCM.PYCHPN ---
Psychiatric Progress Note - Psychiatric Progress Note Patient seen today, length of contact: Pt evaluated, case discussed w/ team, chart reviewed Patient Chief Complaint: "I wanted to jump in front of the subway." Problems Identified/Issues Discussed: Patient continues to reports feeling depressed, anxious, w/ ruminating thoughts. He denies acute paranoia. No current AH/VH/SI/HI. No adverse effects to medications reported. Medication Change: Yes (Start Vitamin D) Medical Record Reviewed: Yes Consults ordered or reviewed: Medicine consult Mental Status Examination - Cognitive Function Orientation: Person, Place, Situation, Time Memory: Intact Attention: WNL Concentration: WNL Association: [facility] Fund of Knowledge: [facility] Decription of patient's judgement and insights: Fair I/J - Mood Mood: Depressed, Anxious - Affect Affect: Constricted, Depressed - Speech Speech: Soft - Formal Thought Process Formal Thought Process: Circumstantial Psychotic Thoughts and Behaviors: Denies AH/VH/paranoia - Suicidal Ideation Suicidal Ideation: No - Homicidal Ideation Homicidal Ideation: No Goal/Treatment Plan - Goal/Treatment Plan Need for Continued Stay: Remain at risks for inpatient hospitalization, Severe depression anxiety, Discharge may exacerbated symptoms Progress Toward Problem(s) and Goals/Treatment Plan: Major Depressive Disorder w/ Psychotic Features; PTSD -Continue Wellbutrin and Klonopin -Continue Seroquel -Start Vitamin D for deficiency -Medicine consult -Individual and group therapy -Psychoeducation -Disposition planning Estimated Date of D/C: 10/18/18
[2018-10-13] MEDS: Multivitamin With Minerals Tab PO SCH (17:37)
[2018-10-13] MEDS: Cholecalciferol 400 Intl Units Tab PO SCH (17:37)
[2018-10-14] MEDS: Levothyroxine 88 MCG TAB PO SCH (06:33)
[2018-10-14] MEDS: Multivitamin With Minerals Tab PO SCH (08:45)
[2018-10-14] MEDS: buPROPion SR 150 MG TABLET PO SCH (08:45)
[2018-10-14] MEDS: Cholecalciferol 400 Intl Units Tab PO SCH (08:45)
[2018-10-14] MEDS: Pravastatin Sodium 40 MG TAB PO SCH (08:45)
--- NOTE | 2018-10-14 09:33 | PCM.PYCHPN ---
Psychiatric Progress Note - Psychiatric Progress Note Patient seen today, length of contact: Pt evaluated, case discussed w/ team, chart reviewed Patient Chief Complaint: I am tired Problems Identified/Issues Discussed: pt seen in bed presenting with depressed mood and affect, anhedonia , low energy and poor motivation, denied side effects of medications, denied command hallucinations, denied S/HI DSM 5 Symptoms Update: major depression Medication Change: No (Start Vitamin D) Medical Record Reviewed: Yes Mental Status Examination - Cognitive Function Orientation: Person, Place, Situation, Time Memory: Intact Attention: WNL Concentration: WNL Association: WNL Fund of Knowledge: WNL - Mood Mood: Depressed, Anxious - Affect Affect: Constricted, Depressed - Speech Speech: Soft - Formal Thought Process Formal Thought Process: Circumstantial - Suicidal Ideation Suicidal Ideation: No - Homicidal Ideation Homicidal Ideation: No Goal/Treatment Plan - Goal/Treatment Plan Need for Continued Stay: Remain at risks for inpatient hospitalization, Severe depression anxiety, Discharge may exacerbated symptoms Progress Toward Problem(s) and Goals/Treatment Plan: CONTINUE CURRENT MEDICATIONS CBT, GROUP AND SUPPORTIVE THERAPY Estimated Date of D/C: 10/18/18
[2018-10-15] MEDS: Levothyroxine 88 MCG TAB PO SCH (06:45)
[2018-10-15] MEDS: Multivitamin With Minerals Tab PO SCH (08:42)
[2018-10-15] MEDS: buPROPion SR 150 MG TABLET PO SCH (08:42)
[2018-10-15] MEDS: Cholecalciferol 400 Intl Units Tab PO SCH (08:43)
[2018-10-15] MEDS: Pravastatin Sodium 40 MG TAB PO SCH (08:43)
--- NOTE | 2018-10-15 14:11 | PCM.PYCHPN ---
Psychiatric Progress Note - Psychiatric Progress Note Patient seen today, length of contact: Pt evaluated, case discussed w/ team, chart reviewed Patient Chief Complaint: I am still anxious Problems Identified/Issues Discussed: pt seen in day room, reported less depressed with wellbutrin improved level of energy , but continues to feel anxious denied side effects of medications, denied command hallucinations, denied S/HI DSM 5 Symptoms Update: major depression Medication Change: No (Start Vitamin D) Medical Record Reviewed: Yes Mental Status Examination - Cognitive Function Orientation: Person, Place, Situation, Time Memory: Intact Attention: WNL Concentration: WNL Association: WNL Fund of Knowledge: WNL - Mood Mood: Depressed, Anxious - Affect Affect: Constricted, Depressed - Speech Speech: Soft - Formal Thought Process Formal Thought Process: Circumstantial - Suicidal Ideation Suicidal Ideation: No - Homicidal Ideation Homicidal Ideation: No Goal/Treatment Plan - Goal/Treatment Plan Need for Continued Stay: Remain at risks for inpatient hospitalization, Severe depression anxiety, Discharge may exacerbated symptoms Progress Toward Problem(s) and Goals/Treatment Plan: CONTINUE CURRENT MEDICATIONS CBT, GROUP AND SUPPORTIVE THERAPY Estimated Date of D/C: 10/18/18
[2018-10-16] MEDS: Levothyroxine 88 MCG TAB PO SCH (06:28)
[2018-10-16] MEDS: Multivitamin With Minerals Tab PO SCH (08:45)
[2018-10-16] MEDS: buPROPion SR 150 MG TABLET PO SCH (08:46)
[2018-10-16] MEDS: Pravastatin Sodium 40 MG TAB PO SCH (08:46)
[2018-10-16] MEDS: Cholecalciferol 400 Intl Units Tab PO SCH (08:46)
--- NOTE | 2018-10-16 11:05 | PCM.PYCHPN ---
Psychiatric Progress Note - Psychiatric Progress Note Patient seen today, length of contact: Pt evaluated, case discussed w/ team, chart reviewed Patient Chief Complaint: Paranoia Problems Identified/Issues Discussed: Patient continues to reports feeling anxious and paranoid, w/ ruminating thoughts. No current AH/VH/SI/HI. No adverse effects to medications reported. Medication Change: Yes (Increase Seroquel) Medical Record Reviewed: Yes Consults ordered or reviewed: Medicine consult Mental Status Examination - Cognitive Function Orientation: Person, Place, Situation, Time Memory: Intact Attention: WNL Concentration: WNL Association: WNL Fund of Knowledge: [facility] Decription of patient's judgement and insights: Improving I/J - Mood Mood: Depressed, Anxious - Affect Affect: Constricted, Depressed - Speech Speech: Soft - Formal Thought Process Formal Thought Process: Paranoia, Circumstantial Psychotic Thoughts and Behaviors: Paranoia/suspiciousness - Suicidal Ideation Suicidal Ideation: No - Homicidal Ideation Homicidal Ideation: No Goal/Treatment Plan - Goal/Treatment Plan Need for Continued Stay: Remain at risks for inpatient hospitalization, Severe depression anxiety, Discharge may exacerbated symptoms Progress Toward Problem(s) and Goals/Treatment Plan: Major Depressive Disorder w/ Psychotic Features; PTSD -Continue Wellbutrin and Klonopin -Increase Seroquel -Vitamin D -Medicine consult -Individual and group therapy -Psychoeducation -Disposition planning Estimated Date of D/C: 10/20/18
[2018-10-17 05:53] VITALS: O2SAT 18
[2018-10-17] MEDS: Levothyroxine 88 MCG TAB PO SCH (06:33)
[2018-10-17] MEDS: Multivitamin With Minerals Tab PO SCH (09:04)
[2018-10-17] MEDS: buPROPion SR 150 MG TABLET PO SCH (09:04)
[2018-10-17] MEDS: Cholecalciferol 400 Intl Units Tab PO SCH (09:05)
[2018-10-17] MEDS: Pravastatin Sodium 40 MG TAB PO SCH (09:05)
--- NOTE | 2018-10-17 12:07 | PCM.PYCHPN ---
Psychiatric Progress Note - Psychiatric Progress Note Patient seen today, length of contact: Pt evaluated, case discussed w/ team, chart reviewed Patient Chief Complaint: Paranoia Problems Identified/Issues Discussed: No new events overnight. Patient continues to reports feeling anxious and paranoid, w/ ruminating thoughts. No current AH/VH/SI/HI. No adverse effects to medications reported. Medication Change: No Medical Record Reviewed: Yes Consults ordered or reviewed: Medicine consult Mental Status Examination - Cognitive Function Orientation: Person, Place, Situation, Time Memory: Intact Attention: WNL Concentration: WNL Association: WNL Fund of Knowledge: [facility] Decription of patient's judgement and insights: Improving I/J - Mood Mood: Depressed, Anxious - Affect Affect: Constricted, Depressed - Speech Speech: Soft - Formal Thought Process Formal Thought Process: Paranoia, Circumstantial Psychotic Thoughts and Behaviors: Paranoia/suspiciousness - Suicidal Ideation Suicidal Ideation: No - Homicidal Ideation Homicidal Ideation: No Goal/Treatment Plan - Goal/Treatment Plan Need for Continued Stay: Remain at risks for inpatient hospitalization, Severe depression anxiety, Discharge may exacerbated symptoms Progress Toward Problem(s) and Goals/Treatment Plan: Major Depressive Disorder w/ Psychotic Features; PTSD -Continue Wellbutrin and Klonopin -Continue Seroquel -Vitamin D -Medicine consult -Individual and group therapy -Psychoeducation -Disposition planning Estimated Date of D/C: 10/20/18
[2018-10-18] MEDS: Levothyroxine 88 MCG TAB PO SCH (06:52)
[2018-10-18] MEDS: Pravastatin Sodium 40 MG TAB PO SCH (08:49)
[2018-10-18] MEDS: Multivitamin With Minerals Tab PO SCH (08:49)
[2018-10-18] MEDS: buPROPion SR 150 MG TABLET PO SCH (08:50)
[2018-10-18] MEDS: Cholecalciferol 400 Intl Units Tab PO SCH (08:50)
--- NOTE | 2018-10-18 11:28 | PCM.PYCHPN ---
Psychiatric Progress Note - Psychiatric Progress Note Patient seen today, length of contact: Pt evaluated, case discussed w/ team, chart reviewed Patient Chief Complaint: Paranoia Problems Identified/Issues Discussed: Patient reports that he continues to have ruminating thoughts but they are less frequent, he also reports feeling less paranoid, but continues to feel anxious. No current AH/VH/SI/HI. No adverse effects to medications reported. Medication Change: No Medical Record Reviewed: Yes Consults ordered or reviewed: Medicine consult Mental Status Examination - Cognitive Function Orientation: Person, Place, Situation, Time Memory: Intact Attention: WNL Concentration: WNL Association: [facility]N Fund of Knowledge: [facility] Decription of patient's judgement and insights: Improving I/J - Mood Mood: Depressed, Anxious - Affect Affect: Constricted, Depressed - Speech Speech: Soft - Formal Thought Process Formal Thought Process: Paranoia, Circumstantial Psychotic Thoughts and Behaviors: Paranoia/suspiciousness - Suicidal Ideation Suicidal Ideation: No - Homicidal Ideation Homicidal Ideation: No Goal/Treatment Plan - Goal/Treatment Plan Need for Continued Stay: Remain at risks for inpatient hospitalization, Severe depression anxiety, Discharge may exacerbated symptoms Progress Toward Problem(s) and Goals/Treatment Plan: Major Depressive Disorder w/ Psychotic Features; PTSD -Continue Wellbutrin and Klonopin -Continue Seroquel -Vitamin D -Medicine consult -Individual and group therapy -Psychoeducation -Disposition planning Estimated Date of D/C: 10/20/18
--- NOTE | 2018-10-18 12:16 | CP.PCM.PN ---
<Alicja Lee - Last Filed: 10/18/18 13:59> Subjective - Date & Time of Evaluation Date of Evaluation: 10/18/18 Time of Evaluation: 12:16 - Subjective Subjective: Patient seen and examined at bedside, no overnight events, doing well, no active complaints at this time. Objective - Vital Signs/Intake and Output Vital Signs (last 24 hours): Temp Pulse Resp BP Pulse Ox 97.3 F L 88 18 125/80 18 L 10/18/18 05:47 10/18/18 05:47 10/18/18 05:47 10/18/18 05:47 10/17/18 05:52 - Medications Medications: Current Medications Acetaminophen (Tylenol 325mg Tab) 650 mg PO Q4 PRN PRN Reason: Pain, moderate (4-7) Al Hydrox/Mg Hydrox/Simethicone (Maalox Plus 30 Ml) 30 ml PO Q4 PRN PRN Reason: Dyspepsia Bupropion HCl (Wellbutrin Sr 150 Mg) 150 mg PO DAILY [facility] Last Admin: 10/18/18 08:50 Dose: 150 mg Clonazepam (Klonopin) 0.5 mg PO BID [facility] Last Admin: 10/18/18 08:49 Dose: 0.5 mg Diphenhydramine HCl (Benadryl) 50 mg IM Q6 PRN PRN Reason: Extrapyramidal S/S Unable PO Diphenhydramine HCl (Benadryl) 50 mg PO Q6 PRN PRN Reason: Extrapyramidal Symptoms Haloperidol (Haldol) 5 mg PO Q4 PRN PRN Reason: Agitation Haloperidol Lactate (Haldol) 5 mg IM Q4 PRN PRN Reason: Agitation, Unable to Take PO Levothyroxine Sodium (Synthroid) 88 mcg PO DAILY@0630 [facility] Last Admin: 10/18/18 06:52 Dose: 88 mcg Lorazepam (Ativan) 2 mg IM Q4 PRN PRN Reason: Anxiety/Agitation,Unable PO Lorazepam (Ativan) 2 mg PO Q4 PRN PRN Reason: Agitation Magnesium Hydroxide (Milk Of Magnesia) 30 ml PO HS PRN PRN Reason: Constipation Multivitamins/Minerals (Therapeutic-M Tab) 1 tab PO DAILY [facility] Last Admin: 10/18/18 08:49 Dose: 1 tab Pravastatin Sodium (Pravachol) 40 mg PO DAILY [facility] Last Admin: 10/18/18 08:49 Dose: 40 mg Quetiapine Fumarate (Seroquel) 400 mg PO HS [facility] Last Admin: 10/17/18 21:03 Dose: 400 mg Quetiapine Fumarate (Seroquel) 50 mg PO DAILY@1300 [facility] Vitamin D (Vitamin D 400 Intl Units Tab) 400 intlu PO DAILY [facility] Last Admin: 10/18/18 08:50 Dose: 400 intlu - Labs Labs: 10/11/18 06:35 10/11/18 06:35 - Constitutional Appears: No Acute Distress - Respiratory Exam Respiratory Exam: Clear to Ausculation Bilateral, NORMAL BREATHING PATTERN - Cardiovascular Exam Cardiovascular Exam: REGULAR RHYTHM, +S1, +S2 - GI/Abdominal Exam GI & Abdominal Exam: Soft, Normal Bowel Sounds. absent: Distended, Tenderness - Extremities Exam Extremities Exam: absent: Pedal Edema - Neurological Exam Neurological Exam: Alert, Awake, Oriented x3 - Skin Skin Exam: Dry, Warm Assessment and Plan - Assessment and Plan (Free Text) Assessment: 58 y/o M with a PMHx of hypothyroidism and HLD admitted for evaluation and management of major depression disorder. PLAN: - Afebrile, stable. - Home meds resumed - Continue with psychiatry management. - Plan as ordered. Case and examined with Dr Baugh <Peter Baugh - Last Filed: 10/21/18 20:20> Objective - Vital Signs/Intake and Output Vital Signs (last 24 hours): Temp Pulse Resp BP Pulse Ox 97.2 F L 78 20 112/56 L 18 L 10/21/18 18:00 10/21/18 18:00 10/21/18 18:00 10/21/18 18:00 10/17/18 05:52 - Medications Medications: Current Medications Acetaminophen (Tylenol 325mg Tab) 650 mg PO Q4 PRN PRN Reason: Pain, moderate (4-7) Last Admin: 10/21/18 08:26 Dose: 650 mg Al Hydrox/Mg Hydrox/Simethicone (Maalox Plus 30 Ml) 30 ml PO Q4 PRN PRN Reason: Dyspepsia Bupropion HCl (Wellbutrin Sr 150 Mg) 150 mg PO DAILY [facility] Last Admin: 10/21/18 08:23 Dose: 150 mg Clonazepam (Klonopin) 0.5 mg PO BID [facility] Last Admin: 10/21/18 16:55 Dose: 0.5 mg Diphenhydramine HCl (Benadryl) 50 mg IM Q6 PRN PRN Reason: Extrapyramidal S/S Unable PO Diphenhydramine HCl (Benadryl) 50 mg PO Q6 PRN PRN Reason: Extrapyramidal Symptoms Haloperidol (Haldol) 5 mg PO Q4 PRN PRN Reason: Agitation Haloperidol Lactate (Haldol) 5 mg IM Q4 PRN PRN Reason: Agitation, Unable to Take PO Levothyroxine Sodium (Synthroid) 88 mcg PO DAILY@0630 [facility] Last Admin: 10/21/18 06:24 Dose: 88 mcg Lorazepam (Ativan) 2 mg IM Q4 PRN PRN Reason: Anxiety/Agitation,Unable PO Lorazepam (Ativan) 2 mg PO Q4 PRN PRN Reason: Agitation Magnesium Hydroxide (Milk Of Magnesia) 30 ml PO HS PRN PRN Reason: Constipation Multivitamins/Minerals (Therapeutic-M Tab) 1 tab PO DAILY [facility] Last Admin: 10/21/18 08:23 Dose: 1 tab Pravastatin Sodium (Pravachol) 40 mg PO DAILY [facility] Last Admin: 10/21/18 08:23 Dose: 40 mg Quetiapine Fumarate (Seroquel) 400 mg PO HS [facility] Last Admin: 10/20/18 21:06 Dose: 400 mg Quetiapine Fumarate (Seroquel) 50 mg PO DAILY@1300 [facility] Last Admin: 10/21/18 12:51 Dose: 50 mg Vitamin D (Vitamin D 400 Intl Units Tab) 400 intlu PO DAILY [facility] Last Admin: 10/21/18 08:23 Dose: 400 intlu - Labs Labs: 10/11/18 06:35 10/11/18 06:35 Assessment and Plan (1) HLD (hyperlipidemia) Status: Chronic (2) Hypothyroidism Status: Chronic (3) Major depressive disorder Status: Chronic - Assessment and Plan (Free Text) Plan: I was present during evaluation and discussed with Dr Rosa de jesus plans of care and mgt. will follow up with Psychiatry Peter Baugh M.D.
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
[2018-10-19] MEDS: Levothyroxine 88 MCG TAB PO SCH (06:05)
[2018-10-19] MEDS: Cholecalciferol 400 Intl Units Tab PO SCH (09:24)
[2018-10-19] MEDS: Multivitamin With Minerals Tab PO SCH (09:24)
[2018-10-19] MEDS: buPROPion SR 150 MG TABLET PO SCH (09:24)
[2018-10-19] MEDS: Pravastatin Sodium 40 MG TAB PO SCH (09:25)
--- NOTE | 2018-10-19 09:56 | PCM.PYCHPN ---
Psychiatric Progress Note - Psychiatric Progress Note Patient seen today, length of contact: Pt evaluated, case discussed w/ team, chart reviewed Patient Chief Complaint: Paranoia Problems Identified/Issues Discussed: No new events. Patient reports that he continues to have ruminating thoughts but they are less frequent. He continues to have intermittent periods of paranoia and suspiciousness. He does not want to increase the Seroquel at this time. No current AH/VH/SI/HI. No adverse effects to medications reported. Medication Change: No Medical Record Reviewed: Yes Consults ordered or reviewed: Medicine consult Mental Status Examination - Cognitive Function Orientation: Person, Place, Situation, Time Memory: Intact Attention: WNL Concentration: WNL Association: WNL Fund of Knowledge: WN Decription of patient's judgement and insights: Improving I/J - Mood Mood: Depressed, Anxious - Affect Affect: Constricted, Depressed - Speech Speech: Soft - Formal Thought Process Formal Thought Process: Paranoia, Circumstantial Psychotic Thoughts and Behaviors: Paranoia/suspiciousness - Suicidal Ideation Suicidal Ideation: No - Homicidal Ideation Homicidal Ideation: No Goal/Treatment Plan - Goal/Treatment Plan Need for Continued Stay: Remain at risks for inpatient hospitalization, Severe depression anxiety, Discharge may exacerbated symptoms Progress Toward Problem(s) and Goals/Treatment Plan: Major Depressive Disorder w/ Psychotic Features; PTSD -Continue Wellbutrin and Klonopin -Continue Seroquel -Vitamin D -Medicine consult -Individual and group therapy -Psychoeducation -Disposition planning Estimated Date of D/C: 10/23/18
[2018-10-20] MEDS: Levothyroxine 88 MCG TAB PO SCH (06:13)
[2018-10-20] MEDS: Multivitamin With Minerals Tab PO SCH (08:24)
[2018-10-20] MEDS: Pravastatin Sodium 40 MG TAB PO SCH (08:24)
[2018-10-20] MEDS: buPROPion SR 150 MG TABLET PO SCH (08:24)
[2018-10-20] MEDS: Cholecalciferol 400 Intl Units Tab PO SCH (08:24)
--- NOTE | 2018-10-20 11:21 | PCM.PYCHPN ---
Psychiatric Progress Note - Psychiatric Progress Note Patient seen today, length of contact: Pt evaluated, case discussed w/ team, chart reviewed Patient Chief Complaint: Paranoia Problems Identified/Issues Discussed: Patient reports that he has less frequent ruminating thoughts and less paranoia. He does not want to increase the Seroquel at this time. No current AH/VH/SI/HI. Medication Change: No Medical Record Reviewed: Yes Consults ordered or reviewed: Medicine consult Mental Status Examination - Cognitive Function Orientation: Person, Place, Situation, Time Memory: Intact Attention: WNL Concentration: WNL Association: WNL Fund of Knowledge: [facility] Decription of patient's judgement and insights: Improving I/J - Mood Mood: Depressed, Anxious - Affect Affect: Constricted, Depressed - Speech Speech: Soft - Formal Thought Process Formal Thought Process: Paranoia, Circumstantial Psychotic Thoughts and Behaviors: Paranoia/suspiciousness - Suicidal Ideation Suicidal Ideation: No - Homicidal Ideation Homicidal Ideation: No Goal/Treatment Plan - Goal/Treatment Plan Need for Continued Stay: Remain at risks for inpatient hospitalization, Severe depression anxiety, Discharge may exacerbated symptoms Progress Toward Problem(s) and Goals/Treatment Plan: Major Depressive Disorder w/ Psychotic Features; PTSD -Continue Wellbutrin and Klonopin -Continue Seroquel -Vitamin D -Medicine consult -Individual and group therapy -Psychoeducation -Disposition planning Estimated Date of D/C: 10/23/18
[2018-10-21] MEDS: Levothyroxine 88 MCG TAB PO SCH (06:24)
[2018-10-21] MEDS: Pravastatin Sodium 40 MG TAB PO SCH (08:23)
[2018-10-21] MEDS: buPROPion SR 150 MG TABLET PO SCH (08:23)
[2018-10-21] MEDS: Cholecalciferol 400 Intl Units Tab PO SCH (08:23)
[2018-10-21] MEDS: Multivitamin With Minerals Tab PO SCH (08:23)
--- NOTE | 2018-10-21 10:40 | PCM.PYCHPN ---
Psychiatric Progress Note - Psychiatric Progress Note Patient seen today, length of contact: Pt evaluated, case discussed w/ team, chart reviewed Patient Chief Complaint: Paranoia Problems Identified/Issues Discussed: No new events overnight. Patient reports that he has less frequent ruminating thoughts and less paranoia. He does not want to increase the Seroquel at this time. No current AH/VH/SI/HI. Medication Change: No Medical Record Reviewed: Yes Consults ordered or reviewed: Medicine consult Mental Status Examination - Cognitive Function Orientation: Person, Place, Situation, Time Memory: Intact Attention: WNL Concentration: WNL Association: WNL Fund of Knowledge: [facility] Decription of patient's judgement and insights: Improving I/J - Mood Mood: Anxious - Affect Affect: Constricted - Speech Speech: Soft - Formal Thought Process Formal Thought Process: Circumstantial Psychotic Thoughts and Behaviors: Less Paranoia/suspiciousness - Suicidal Ideation Suicidal Ideation: No - Homicidal Ideation Homicidal Ideation: No Goal/Treatment Plan - Goal/Treatment Plan Need for Continued Stay: Severe depression anxiety, Discharge may exacerbated symptoms Progress Toward Problem(s) and Goals/Treatment Plan: Major Depressive Disorder w/ Psychotic Features; PTSD -Continue Wellbutrin and Klonopin -Continue Seroquel -Vitamin D -Medicine consult -Individual and group therapy -Psychoeducation -Disposition planning Estimated Date of D/C: 10/23/18
--- NOTE | 2018-10-21 20:16 | CP.PCM.PN ---
Subjective - Date & Time of Evaluation Date of Evaluation: 10/15/18 Time of Evaluation: 11:00 - Subjective Subjective: Patient remains stable Doing well with Wellbutrin Has no chest pain or SOB Afebrile. Objective - Vital Signs/Intake and Output Vital Signs (last 24 hours): Temp Pulse Resp BP Pulse Ox 97.2 F L 78 20 112/56 L 18 L 10/21/18 18:00 10/21/18 18:00 10/21/18 18:00 10/21/18 18:00 10/17/18 05:52 - Medications Medications: Current Medications Acetaminophen (Tylenol 325mg Tab) 650 mg PO Q4 PRN PRN Reason: Pain, moderate (4-7) Last Admin: 10/21/18 08:26 Dose: 650 mg Al Hydrox/Mg Hydrox/Simethicone (Maalox Plus 30 Ml) 30 ml PO Q4 PRN PRN Reason: Dyspepsia Bupropion HCl (Wellbutrin Sr 150 Mg) 150 mg PO DAILY [facility] Last Admin: 10/21/18 08:23 Dose: 150 mg Clonazepam (Klonopin) 0.5 mg PO BID [facility] Last Admin: 10/21/18 16:55 Dose: 0.5 mg Diphenhydramine HCl (Benadryl) 50 mg IM Q6 PRN PRN Reason: Extrapyramidal S/S Unable PO Diphenhydramine HCl (Benadryl) 50 mg PO Q6 PRN PRN Reason: Extrapyramidal Symptoms Haloperidol (Haldol) 5 mg PO Q4 PRN PRN Reason: Agitation Haloperidol Lactate (Haldol) 5 mg IM Q4 PRN PRN Reason: Agitation, Unable to Take PO Levothyroxine Sodium (Synthroid) 88 mcg PO DAILY@0630 [facility] Last Admin: 10/21/18 06:24 Dose: 88 mcg Lorazepam (Ativan) 2 mg IM Q4 PRN PRN Reason: Anxiety/Agitation,Unable PO Lorazepam (Ativan) 2 mg PO Q4 PRN PRN Reason: Agitation Magnesium Hydroxide (Milk Of Magnesia) 30 ml PO HS PRN PRN Reason: Constipation Multivitamins/Minerals (Therapeutic-M Tab) 1 tab PO DAILY [facility] Last Admin: 10/21/18 08:23 Dose: 1 tab Pravastatin Sodium (Pravachol) 40 mg PO DAILY [facility] Last Admin: 10/21/18 08:23 Dose: 40 mg Quetiapine Fumarate (Seroquel) 400 mg PO HS [facility] Last Admin: 10/20/18 21:06 Dose: 400 mg Quetiapine Fumarate (Seroquel) 50 mg PO DAILY@1300 [facility] Last Admin: 10/21/18 12:51 Dose: 50 mg Vitamin D (Vitamin D 400 Intl Units Tab) 400 intlu PO DAILY [facility] Last Admin: 10/21/18 08:23 Dose: 400 intlu - Labs Labs: 10/11/18 06:35 10/11/18 06:35 - Head Exam Head Exam: NORMAL INSPECTION - Eye Exam Eye Exam: Normal appearance - Respiratory Exam Respiratory Exam: Clear to Ausculation Bilateral - Cardiovascular Exam Cardiovascular Exam: REGULAR RHYTHM - GI/Abdominal Exam GI & Abdominal Exam: Soft - Neurological Exam Neurological Exam: Altered, Awake Assessment and Plan (1) HLD (hyperlipidemia) Status: Chronic (2) Hypothyroidism Status: Chronic (3) Major depressive disorder Status: Chronic - Assessment and Plan (Free Text) Plan: Cont meds Cont tx Follow up labs
[2018-10-22] MEDS: Levothyroxine 88 MCG TAB PO SCH (06:24)
[2018-10-22] MEDS: Pravastatin Sodium 40 MG TAB PO SCH (08:54)
[2018-10-22] MEDS: Multivitamin With Minerals Tab PO SCH (08:54)
[2018-10-22] MEDS: Cholecalciferol 400 Intl Units Tab PO SCH (08:54)
[2018-10-22] MEDS: buPROPion SR 150 MG TABLET PO SCH (08:54)
--- NOTE | 2018-10-22 11:04 | PCM.PYCHPN ---
Psychiatric Progress Note - Psychiatric Progress Note Patient seen today, length of contact: Pt evaluated, case discussed w/ team, chart reviewed Patient Chief Complaint: "I'm getting better." Problems Identified/Issues Discussed: No new events. Patient reports that his mood is improving. He denies acute depression/anxiety/paranoia/delusions. We discussed likely discharge tomorrow as the patient is improving clinically. No SI/HI. Medication Change: No Medical Record Reviewed: Yes Consults ordered or reviewed: Medicine consult Mental Status Examination - Cognitive Function Orientation: Person, Place, Situation, Time Memory: Intact Attention: WNL Concentration: WNL Association: WN Fund of Knowledge: [facility] Decription of patient's judgement and insights: Improving I/J - Mood Mood: Anxious - Affect Affect: Broad - Speech Speech: Soft - Formal Thought Process Formal Thought Process: Circumstantial Psychotic Thoughts and Behaviors: Denies acute paranoia - Suicidal Ideation Suicidal Ideation: No - Homicidal Ideation Homicidal Ideation: No Goal/Treatment Plan - Goal/Treatment Plan Need for Continued Stay: Discharge may exacerbated symptoms Progress Toward Problem(s) and Goals/Treatment Plan: Major Depressive Disorder w/ Psychotic Features; PTSD -Continue Wellbutrin and Klonopin -Continue Seroquel -Vitamin D -Medicine consult -Individual and group therapy -Psychoeducation -Disposition planning-discharge tomorrow with outpatient follow-up Estimated Date of D/C: 10/23/18
[2018-10-23 06:25] VITALS: BP 99/67; PULSE 78; RESP 18; TEMP 97.2
[2018-10-23] MEDS: Levothyroxine 88 MCG TAB PO SCH (07:53)
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
[2018-10-23] MEDS: Pravastatin Sodium 40 MG TAB PO SCH (09:23)
[2018-10-23] MEDS: Multivitamin With Minerals Tab PO SCH (09:23)
[2018-10-23] MEDS: buPROPion SR 150 MG TABLET PO SCH (09:24)
[2018-10-23] MEDS: Cholecalciferol 400 Intl Units Tab PO SCH (09:24)
== END 2018-10-23 12:00 | disposition home or self-care (01) | DRG 885 ==
LOC: H.ER 11:26 → H.ERHOLD 13:18 → H.STEP 14:37
PROVIDERS: ADMIT Psychiatry & Neurology Psychiatry; ATTEND Psychiatry & Neurology Psychiatry
PROC: GZHZZZZ Group Psychotherapy (ICD-10-PCS; principal; 2018-10-10)
PROC: GZ58ZZZ Individual Psychotherapy, Cognitive-Behavioral (ICD-10-PCS; 2018-10-10)
DX: F32.3 Major depressive disorder, single episode, severe with psychotic features (principal); R45.851 Suicidal ideations; F43.10 Post-traumatic stress disorder, unspecified; Z91.5 Personal history of self-harm; Z62.810 Personal history of physical and sexual abuse in childhood; F41.9 Anxiety disorder, unspecified; E03.9 Hypothyroidism, unspecified; E78.00 Pure hypercholesterolemia, unspecified; E78.5 Hyperlipidemia, unspecified; D64.9 Anemia, unspecified; K29.70 Gastritis, unspecified, without bleeding; Z88.0 Allergy status to penicillin

== ENCOUNTER 2018-12-07 17:32 | Inpatient (IN) | payer MEDICARE ==
[2018-12-07 17:32] VITALS: BMI 27.0
--- NOTE | 2018-12-07 18:35 | ED PDOC ---
HPI: General Adult Time Seen by Provider: 12/07/18 18:18 Chief Complaint (Nursing): Shortness Of Breath Chief Complaint (Provider): Fatigue History Per: Patient History/Exam Limitations: no limitations Additional Complaint(s): Pt sent by long-term for evaluation. Pt states counselor thought he seemed SOB when talking with him. Pt reports fatigue and SOB with exertion. Denies CP, SOB, palpitations. Pt reports while in psych unit @ [facility] he had palpitations and was transferred to cardiac unit for one week. He was "cleared" and sent back to psych unit. Past Medical History Reviewed: Nursing Documentation, Vital Signs Vital Signs: Last Vital Signs Temp 98.2 F 12/07/18 17:45 Pulse 90 12/07/18 17:45 Resp 18 12/07/18 17:45 BP 122/74 12/07/18 17:45 Pulse Ox 99 12/07/18 17:45 - Medical History PMH: Anemia, Anxiety, Depression, Fractures (LEFT HAND), Gastritis, Hypercholesterolemia, Hypothyroidism, Post Traumatic Stress Disorder Denies: Diabetes, Hepatitis, HIV, HTN, Chronic Kidney Disease, Seizures, Sexually Transmitted Disease - Surgical History Surgical History: Endoscopy - Family History Family History: States: Unknown Family Hx - Social History Current smoker - smoking cessation education provided: No Alcohol: None - Immunization History Hx Tetanus Toxoid Vaccination: No Hx Influenza Vaccination: No Hx Pneumococcal Vaccination: No - Home Medications Home Medications: Ambulatory Orders Medication Instructions Recorded Levothyroxine [Synthroid] 88 mcg PO DAILY 04/25/18 Pravastatin Sodium [Pravachol] 40 mg PO HS 04/25/18 Meloxicam [Mobic] 7.5 mg PO DAILY 10/10/18 Cholecalciferol 400 Intl Units 400 intlu PO DAILY tab 10/22/18 [Vitamin D 400 Intl Units Tab] Multimineral/Multivitamin 1 tab PO DAILY tab 10/22/18 [Therapeutic-M Tab] Bupropion HCl [Bupropion HCl Xl] 150 mg PO DAILY #30 t24 10/23/18 Quetiapine Fumarate [Seroquel] 50 mg PO DAILY@1300 #30 tablet 10/23/18 Quetiapine Fumarate [Seroquel] 400 mg PO HS #30 tab 10/23/18 clonazePAM [Klonopin] 0.5 mg PO BID #60 tab 10/23/18 - Allergies Allergies/Adverse Reactions: Allergies Allergy/AdvReac Type Severity Reaction Status Date / Time Penicillins Allergy RASH Verified 04/25/18 12:10 Review of Systems Constitutional: Positive for: Malaise. Negative for: Fever, Chills Cardiovascular: Negative for: Chest Pain, Palpitations Respiratory: Positive for: SOB with Exertion. Negative for: Cough Gastrointestinal: Negative for: Nausea, Vomiting, Abdominal Pain, Diarrhea Skin: Negative for: Rash, Lesions Neurological: Negative for: Headache, Dizziness Physical Exam - Reviewed Nursing Documentation Reviewed: Yes Vital Signs Reviewed: Yes - Physical Exam Appears: Positive for: Well, No Acute Distress (Speaking full sentences) Head Exam: Positive for: ATRAUMATIC, NORMAL INSPECTION Skin: Positive for: Normal Color, Warm, Dry Eye Exam: Positive for: Normal appearance, EOMI, PERRL Cardiovascular/Chest: Positive for: Regular Rate, Rhythm Respiratory: Positive for: Normal Breath Sounds Gastrointestinal/Abdominal: Positive for: Normal Exam Extremity: Positive for: Normal ROM. Negative for: Calf Tenderness, Swelling Neurologic/Psych: Positive for: Alert, revolving inventory clerk II-XII, Oriented - Laboratory Results Result Diagrams: 12/07/18 18:37 12/07/18 18:37 - ECG Interpretation Of ECG: NSR @ 80, no ST-T changes. O2 Sat by Pulse Oximetry: 99 Pulse Ox Interpretation: Normal - Radiology X-Ray: Interpreted by Hi X-Ray Interpretation: No Acute Disease Medical Decision Making Medical Decision Makin yo male with fatigue and SOB with exertion. - labs - EKG - CXR 21:30 Pt states he was suicidal, 1:1 and Crisis evaluation ordered. MEDICAL CLEARANCE: Pt medically cleared for psych admission. Disposition - Clinical Impression Clinical Impression: Depression - Disposition Disposition: Transfer of Care Disposition Time: 00:00 Condition: STABLE Patient Signed Over To: Ricky Morales
[2018-12-07 18:51] LABS: BASO # 0.1 K/uL (0.0-0.2); BASO % 0.9 % (0.0-2.0); EOS # 0.1 K/uL (0.0-0.7); EOS % 1.5 % (0.0-4.0); HEMOGLOBIN 13.8 g/dL (12.0-18.0); LYMPH # 1.5 K/uL (1.0-4.3); MEAN CELL VOLUME 87.1 fl (80.0-94.0); MEAN CORPUSCULAR HEMOGLOBIN 29.4 pg (27.0-31.0); MEAN CORPUSCULAR HGB CONC 33.8 g/dL (33.0-37.0); MEAN PLATELET VOLUME 8.8 fl (7.2-11.7); MONO # 1.1 K/uL (0.0-0.8); MONO % 19.4 % (0.0-10.0); NEUT # 3.1 K/uL (1.8-7.0); NEUT % 53.2 % (50.0-75.0); NRBC % 0.1 % (0.0-0.0); RBC 4.69 Mil/uL (4.40-5.90); RED CELL DISTRIBUTION WIDTH 15.4 % (11.5-14.5); WHITE BLOOD COUNT 5.9 K/uL (4.8-10.8)
[2018-12-07 18:54] LABS: INR 1.1; PROTHROMBIN TIME 12.3 Seconds (9.8-13.1)
[2018-12-07 18:57] LABS: PARTIAL THROMBOPLASTIN TIME 32.2 Seconds (25.6-37.1)
[2018-12-07 18:58] LABS: URINE BILIRUBIN NEGATIVE (NEGATIVE); URINE BLOOD NEGATIVE (NEGATIVE); URINE CLARITY CLEAR (Clear); URINE COLOR YELLOW (YELLOW); URINE GLUCOSE (UA) NEG (NEGATIVE); URINE HYALINE CAST 0-2 /hpf (0-2); URINE LEUKOCYTE ESTERASE NEG Leu/uL (Negative); URINE PROTEIN NEGATIVE (NEGATIVE); URINE UROBILINOGEN 0.2-1.0 mg/dL (0.2-1.0)
[2018-12-07 19:00] LABS: ALB/GLOB RATIO 1.4 (1.0-2.1); ALBUMIN 4.2 g/dL (3.5-5.0); ALT/SGPT 24 U/L (21-72); AST/SGOT 16 U/L (17-59); BLOOD UREA NITROGEN 14 mg/dl (9-20); CALCIUM 9.5 mg/dL (8.4-10.2); D DIMER < 200 ng/mlDDU (0-230); GFR NON-AFRICAN AMERICAN > 60
[2018-12-07] MEDS ORDERED: Potassium Chloride 20 mEq ER Tab PO STA (19:26)
[2018-12-07] MEDS ORDERED: Potassium Chloride 20 mEq ER Tab PO ONE (20:17)
--- NOTE | 2018-12-08 00:07 | ED PDOC ---
- Laboratory Results Result Diagrams: 12/07/18 18:37 12/07/18 18:37 Lab Results: PT 12.3 Seconds (9.8-13.1) 12/07/18 18:37 INR 1.1 12/07/18 18:37 APTT 32.2 Seconds (25.6-37.1) 12/07/18 18:37 D-Dimer, Quantitative < 200 ng/mlDDU (0-230) 12/07/18 18: Troponin I < 0.0120 ng/mL (0.00-0.120) 12/07/18 18: Total Bilirubin 0.5 mg/dl (0.2-1.3) 12/07/18 18:37 AST 16 U/L (17-59) L 12/07/18 18:37 ALT 24 U/L (21-72) 12/07/18 18:37 Alkaline Phosphatase 77 U/L (38-126) 12/07/18 18:37 Total Protein 7.3 G/DL (6.3-8.2) 12/07/18 18:37 Albumin 4.2 g/dL (3.5-5.0) 12/07/18 18:37 Globulin 3.1 gm/dL (2.2-3.9) 12/07/18 18: Albumin/Globulin Ratio 1.4 (1.0-2.1) 12/07/18 18:37 Urine Color Yellow (YELLOW) 12/07/18 18:37 Urine Clarity Clear (Clear) 12/07/18 18:37 Urine pH 6.0 (5.0-8.0) 12/07/18 18:37 Ur Specific Alma 1.008 (1.003-1.030) 12/07/18 18:37 Urine Protein Negative mg/dL (NEGATIVE) 12/07/18 18:37 Urine Glucose (UA) Neg mg/dL (NEGATIVE) 12/07/18 18: Urine Ketones Negative mg/dL (NEGATIVE) 12/07/18 18: Urine Blood Negative (NEGATIVE) 12/07/18 18:37 Urine Nitrate Negative (NEGATIVE) 12/07/18 18:37 Urine Bilirubin Negative (NEGATIVE) 12/07/18 18:37 Urine Urobilinogen 0.2-1.0 mg/dL (0.2-1.0) 12/07/18 18:37 Ur Leukocyte Esterase Neg Henri/uL (Negative) 12/07/18 18:37 Urine RBC (Auto) < 1 /hpf (0-3) 12/07/18 18:37 Hyaline Casts 0-2 /hpf (0-2) 12/07/18 18:37 - ECG O2 Sat by Pulse Oximetry: 99 Medical Decision Making Medical Decision Making: Time: 00:00 --Patient endorsed to provider by Dr. Weaver, pending crisis evaluation and re- eval. Time: 0210 --Upon crisis evaluation, patient will be admitted for further treatment of depression, as per Dr. Martinez. Patient is medically stable at this time for p sychiatric admission. Counseling was provided and all questions were answered regarding diagnosis. There is agreement to discharge plan. Return if symptoms persist or worsen. Clinical Impression: Depression Scribe Attestation: Documented by Елена Cheung, acting as a scribe for Ricky Morales MD. Provider Scribe Attestation: All medical record entries made by the Scribe were at my direction and personally dictated by me. I have reviewed the chart and agree that the record accurately reflects my personal performance of the history, physical exam, medical decision making, and the department course for this patient. I have also personally directed, reviewed, and agree with the discharge instructions and disposition. Disposition Counseled Patient/Family Regarding: Studies Performed, Diagnosis - Clinical Impression Clinical Impression: Depression - POA Present On Arrival: None - Disposition Disposition: Admitted as In-Patient Disposition Time: 02:10 Condition: STABLE Forms: [employer] (Portuguese)
[2018-12-08] MEDS ORDERED: Magnesium Hydroxide Susp 30 ml UD PO PRN (04:07)
[2018-12-08] MEDS ORDERED: Alum-Mag Hydrox-Simethicone Susp (30 mL) PO PRN (04:07)
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
[2018-12-08] MEDS: Levothyroxine 88 MCG TAB PO SCH (08:29)
[2018-12-08] MEDS: Cholecalciferol 400 Intl Units Tab PO SCH (08:29)
[2018-12-08] MEDS: Multivitamin With Minerals Tab PO SCH (08:29)
--- NOTE | 2018-12-08 09:13 | RAD ---
Date of service: 12/07/2018 HISTORY: Fatigue COMPARISON: Chest radiographs 10/10/2018. TECHNIQUE: Chest PA and lateral FINDINGS: LUNGS: No active pulmonary disease. PLEURA: No significant pleural effusion identified. No pneumothorax apparent. CARDIOVASCULAR: No aortic atherosclerotic calcification present. Normal cardiac size. No pulmonary vascular congestion. OSSEOUS STRUCTURES: No significant abnormalities. VISUALIZED UPPER ABDOMEN: Normal. OTHER FINDINGS: None. IMPRESSION: No interval acute cardiopulmonary disease appreciated.
[2018-12-08 18:44] LABS: URINE BILIRUBIN NEGATIVE (NEGATIVE); URINE BLOOD NEGATIVE (NEGATIVE); URINE CLARITY CLEAR (Clear); URINE COLOR STRAW (YELLOW); URINE GLUCOSE (UA) NEG (NEGATIVE); URINE LEUKOCYTE ESTERASE NEG Leu/uL (Negative); URINE PROTEIN NEGATIVE (NEGATIVE); URINE UROBILINOGEN 0.2-1.0 mg/dL (0.2-1.0)
--- NOTE | 2018-12-08 20:52 | CARD ---
APPROVED REPORT Date of service: 12/07/2018 EKG Measurement Heart [id number] MI [id number] [id number] <Conclusion> Normal sinus rhythm Rightward axis Possible Inferior infarct, age undetermined Abnormal ECG
[2018-12-08] MEDS: Pravastatin Sodium 40 MG TAB PO SCH (21:06)
[2018-12-09] MEDS: Levothyroxine 88 MCG TAB PO SCH (06:19)
[2018-12-09] MEDS: Cholecalciferol 400 Intl Units Tab PO SCH (08:56)
[2018-12-09] MEDS: Multivitamin With Minerals Tab PO SCH (08:56)
--- NOTE | 2018-12-09 11:21 | PCM.PYCHPN ---
Psychiatric Progress Note - Psychiatric Progress Note Patient seen today, length of contact: Pt evaluated, case discussed w/ team, chart reviewed Patient Chief Complaint: "I was having suicidal thoughts." Problems Identified/Issues Discussed: Patient continues to be depressed w/ continued suicidal ideation. Patient is observed spending most of the day in bed. Patient encouraged to shower, get out of bed and engage in the community. NO AH/VH. +Mild paranoia Medication Change: Yes (Increase Clozapine) Medical Record Reviewed: Yes Consults ordered or reviewed: Medicine consult Mental Status Examination - Cognitive Function Orientation: Person, Place, Situation, Time Memory: Intact Attention: WNL Concentration: WNL Fund of Knowledge: WNL Decription of patient's judgement and insights: Fair I/J - Mood Mood: Depressed - Affect Affect: Constricted, Depressed - Formal Thought Process Formal Thought Process: Paranoia, Circumstantial Psychotic Thoughts and Behaviors: No AH/VH - Suicidal Ideation Suicidal Ideation: Yes Plan: Jump in front of a subway track - Homicidal Ideation Homicidal Ideation: No Goal/Treatment Plan - Goal/Treatment Plan Need for Continued Stay: Remain at risks for inpatient hospitalization, Severe depression anxiety, Discharge may exacerbated symptoms Progress Toward Problem(s) and Goals/Treatment Plan: Schizoaffective Disorder; PTSD -Increase Clozapine to 300 mg PO HS -Continue Klonopin -Medicine consult -Individual and group therapy -Psychoeducation -Consider treatment w/ ECT -Disposition planning
[2018-12-09] MEDS ORDERED: Potassium Chloride 20 mEq ER Tab PO ONE (21:00)
[2018-12-09] MEDS: Pravastatin Sodium 40 MG TAB PO SCH (21:09)
[2018-12-10] MEDS: Levothyroxine 88 MCG TAB PO SCH (06:18)
[2018-12-10] MEDS: Multivitamin With Minerals Tab PO SCH (08:09)
[2018-12-10] MEDS: Cholecalciferol 400 Intl Units Tab PO SCH (08:09)
[2018-12-10 08:51] LABS: ALB/GLOB RATIO 1.4 (1.0-2.1); ALBUMIN 4.2 g/dL (3.5-5.0); ALT/SGPT 19 U/L (21-72); AST/SGOT 14 U/L (17-59); BLOOD UREA NITROGEN 15 mg/dl (9-20); CALCIUM 9.9 mg/dL (8.4-10.2); GFR NON-AFRICAN AMERICAN > 60
--- NOTE | 2018-12-10 08:51 | PCM.PYCHPN ---
Psychiatric Progress Note - Psychiatric Progress Note Patient seen today, length of contact: Pt evaluated, case discussed w/ team, chart reviewed Patient Chief Complaint: "I was having suicidal thoughts." Problems Identified/Issues Discussed: No new events overnight. Patient continues to be depressed w/ continued suicidal ideation. Patient is observed spending most of the day in bed. Patient encouraged to shower, get out of bed and engage in the community. NO AH/VH. +Mild paranoia. No adverse effects to medications reported. Medication Change: No Medical Record Reviewed: Yes Consults ordered or reviewed: Medicine consult Mental Status Examination - Cognitive Function Orientation: Person, Place, Situation, Time Memory: Intact Attention: WNL Concentration: WNL Fund of Knowledge: WNL Decription of patient's judgement and insights: Fair I/J - Mood Mood: Depressed - Affect Affect: Constricted, Depressed - Formal Thought Process Formal Thought Process: Paranoia, Circumstantial Psychotic Thoughts and Behaviors: No AH/VH - Suicidal Ideation Suicidal Ideation: Yes - Homicidal Ideation Homicidal Ideation: No Goal/Treatment Plan - Goal/Treatment Plan Need for Continued Stay: Remain at risks for inpatient hospitalization, Severe depression anxiety, Discharge may exacerbated symptoms Progress Toward Problem(s) and Goals/Treatment Plan: Schizoaffective Disorder; PTSD -Continue Clozapine 300 mg PO HS -Continue Klonopin -Medicine consult -Individual and group therapy -Psychoeducation -Consider treatment w/ ECT -Disposition planning
--- NOTE | 2018-12-10 18:40 | CP.PCM.HP ---
History of Present Illness - History of Present Illness History of Present Illness: This is a 58 y/o male with hx of depression was noted ot have worsening of symptoms Past Patient History - Past Medical History & Family History Past Medical History?: Yes - Past Social History Alcohol: None - CARDIAC Hx Hypercholesterolemia: Yes Hx Hypertension: No - PULMONARY Hx Tuberculosis: No - NEUROLOGICAL Hx Seizures: No - HEENT Hx HEENT Problems: No - RENAL Hx Chronic Kidney Disease: No - ENDOCRINE/METABOLIC Hx Hypothyroidism: Yes - HEMATOLOGICAL/ONCOLOGICAL Hx Anemia: Yes Hx Human Immunodeficiency Virus (HIV): No - INTEGUMENTARY Hx Dermatological Problems: No - MUSCULOSKELETAL/RHEUMATOLOGICAL Hx Fractures: Yes (LEFT HAND) - GASTROINTESTINAL Hx Gastritis: Yes - GENITOURINARY/GYNECOLOGICAL Hx Sexually Transmitted Disorders: No - PSYCHIATRIC Hx Anxiety: Yes Hx Depression: Yes Hx Post Traumatic Stress Disorder: Yes - SURGICAL HISTORY Hx Surgeries: No - ANESTHESIA Hx Anesthesia: No Hx Anesthesia Reactions: No Hx Malignant Hyperthermia: No Meds Allergies/Adverse Reactions: Allergies Allergy/AdvReac Type Severity Reaction Status Date / Time Penicillins Allergy RASH Verified 04/25/18 12:10 Results - Vital Signs Recent Vital Signs: Last Vital Signs Temp 97.2 F L 12/10/18 15:57 Pulse 83 12/10/18 15:57 Resp 19 12/10/18 15:57 BP 119/79 12/10/18 15:57 Pulse Ox 99 12/09/18 16:47 - Labs Result Diagrams: 12/07/18 18:37 12/10/18 07:10 Labs: Laboratory Results - last 24 hr 12/10/18 07:10 Sodium 145 Potassium 4.2 Chloride 104 Carbon Dioxide 29 Anion Gap 16 BUN 15 Creatinine 1.1 Est GFR ( Amer) > 60 Est GFR (Non-Af Amer) > 60 Random Glucose 115 H Calcium 9.9 Total Bilirubin 0.4 AST 14 L ALT 19 L D Alkaline Phosphatase 82 Total Protein 7.3 Albumin 4.2 Globulin 3.1 Albumin/Globulin Ratio 1.4
--- NOTE | 2018-12-10 18:47 | CP.PCM.CON ---
History of Present Illness - History of Present Illness History of Present Illness: This is a 58 y/o male with hx of depression was admitted of worsening of symptoms when seen by his Psychotherapist. He was recently discharged from [facility] for the same reason and had cardiac work up where he was told to have normal results. He has a hx of hypothyroidism and hyperlipidemia and on Levothyroxine and Pravastatin. He is currently on Klonopin, Seroquel and Bupropion. Initial labs at the Er showed normal TSH but elevated LDL. EKG and CXR are normal. He denies any chest pain or SOB He has s very low energy. He had received ECT in the past. Review of Systems - Psychiatric Psychiatric: Abnormal Sleep Pattern, Anxiety, Depression - Endocrine Endocrine: Change in Libido Past Patient History - Past Medical History & Family History Past Medical History?: Yes - Past Social History Alcohol: None - CARDIAC Hx Hypercholesterolemia: Yes Hx Hypertension: No - PULMONARY Hx Tuberculosis: No - NEUROLOGICAL Hx Seizures: No - HEENT Hx HEENT Problems: No - RENAL Hx Chronic Kidney Disease: No - ENDOCRINE/METABOLIC Hx Hypothyroidism: Yes - HEMATOLOGICAL/ONCOLOGICAL Hx Anemia: Yes Hx Human Immunodeficiency Virus (HIV): No - INTEGUMENTARY Hx Dermatological Problems: No - MUSCULOSKELETAL/RHEUMATOLOGICAL Hx Fractures: Yes (LEFT HAND) - GASTROINTESTINAL Hx Gastritis: Yes - GENITOURINARY/GYNECOLOGICAL Hx Sexually Transmitted Disorders: No - PSYCHIATRIC Hx Anxiety: Yes Hx Depression: Yes Hx Post Traumatic Stress Disorder: Yes - SURGICAL HISTORY Hx Surgeries: No - ANESTHESIA Hx Anesthesia: No Hx Anesthesia Reactions: No Hx Malignant Hyperthermia: No Meds Allergies/Adverse Reactions: Allergies Allergy/AdvReac Type Severity Reaction Status Date / Time Penicillins Allergy RASH Verified 04/25/18 12:10 - Medications Medications: Current Medications Acetaminophen (Tylenol 325mg Tab) 650 mg PO Q4 PRN PRN Reason: Pain (4-7) Al Hydrox/Mg Hydrox/Simethicone (Maalox Plus 30 Ml) 30 ml PO Q4 PRN PRN Reason: Dyspepsia Clonazepam (Klonopin) 0.5 mg PO BID [facility] Last Admin: 12/10/18 16:36 Dose: 0.5 mg Clozapine (Clozaril) 300 mg PO HS [facility] Last Admin: 12/09/18 21:09 Dose: 300 mg Diphenhydramine HCl (Benadryl) 50 mg PO Q6 PRN PRN Reason: Extrapyramidal Symptoms Docusate Sodium (Colace) 100 mg PO BID [facility] Last Admin: 12/10/18 16:36 Dose: 100 mg Haloperidol (Haldol) 5 mg PO Q4 PRN PRN Reason: Agitation Haloperidol Lactate (Haldol) 5 mg IM Q4 PRN PRN Reason: Agitation, Unable to Take PO Levothyroxine Sodium (Synthroid) 88 mcg PO DAILY@0630 [facility] Last Admin: 12/10/18 06:18 Dose: 88 mcg Lorazepam (Ativan) 2 mg IM Q6 PRN PRN Reason: Anxiety/Agitation,Unable PO Lorazepam (Ativan) 1 mg PO Q6 PRN PRN Reason: Anxiety/Agitation Magnesium Hydroxide (Milk Of Magnesia) 30 ml PO HS PRN PRN Reason: Constipation Multivitamins/Minerals (Therapeutic-M Tab) 1 tab PO DAILY [facility] Last Admin: 12/10/18 08:09 Dose: 1 tab Pravastatin Sodium (Pravachol) 40 mg PO HS [facility] Last Admin: 12/09/18 21:09 Dose: 40 mg Sennosides (Senokot Tab) 8.6 mg PO BID [facility] Last Admin: 12/10/18 16:36 Dose: 8.6 mg Vitamin D (Vitamin D 400 Intl Units Tab) 400 intlu PO DAILY [facility] Last Admin: 12/10/18 08:09 Dose: 400 intlu Physical Exam - Head Exam Head Exam: NORMAL INSPECTION - Eye Exam Eye Exam: Normal appearance - ENT Exam ENT Exam: Mucous Membranes Moist - Respiratory Exam Respiratory Exam: Clear to Auscultation Bilateral - Cardiovascular Exam Cardiovascular Exam: REGULAR RHYTHM - GI/Abdominal Exam GI & Abdominal Exam: Normal Bowel Sounds - Neurological Exam Neurological exam: Alert, CN II-XII Intact, Oriented x3 - Psychiatric Exam Psychiatric exam: Depressed, Flat Affect Results - Vital Signs Recent Vital Signs: Last Vital Signs Temp 97.2 F L 12/10/18 15:57 Pulse 83 12/10/18 15:57 Resp 19 12/10/18 15:57 BP 119/79 12/10/18 15:57 Pulse Ox 99 12/09/18 16:47 - Labs Result Diagrams: 12/07/18 18:37 12/10/18 07:10 Labs: Laboratory Results - last 24 hr 12/10/18 07:10 Sodium 145 Potassium 4.2 Chloride 104 Carbon Dioxide 29 Anion Gap 16 BUN 15 Creatinine 1.1 Est GFR ( Amer) > 60 Est GFR (Non-Af Amer) > 60 Random Glucose 115 H Calcium 9.9 Total Bilirubin 0.4 AST 14 L ALT 19 L D Alkaline Phosphatase 82 Total Protein 7.3 Albumin 4.2 Globulin 3.1 Albumin/Globulin Ratio 1.4 Assessment & Plan (1) HLD (hyperlipidemia) Status: Chronic (2) Hypothyroidism Status: Chronic (3) Depression Status: Acute - Assessment and Plan (Free Text) Plan: Cont meds DC pravastatin start atorvastatin 40 mg daily Cont same dose of levothyroxine Cont meds Medically stable for ECT.
[2018-12-10] MEDS: Pravastatin Sodium 40 MG TAB PO SCH (21:13)
[2018-12-11] MEDS: Levothyroxine 88 MCG TAB PO SCH (06:08)
[2018-12-11] MEDS: Cholecalciferol 400 Intl Units Tab PO SCH (08:33)
[2018-12-11] MEDS: Multivitamin With Minerals Tab PO SCH (08:33)
--- NOTE | 2018-12-11 12:10 | PCM.PYCHPN ---
Psychiatric Progress Note - Psychiatric Progress Note Patient seen today, length of contact: Pt evaluated, case discussed w/ team, chart reviewed Patient Chief Complaint: "I was having suicidal thoughts." Problems Identified/Issues Discussed: Patient continues to be depressed w/ continued suicidal ideation. He states that suicidal thoughts are almost a relief for him because he feels like he has a way to escape life. NO AH/VH. +Mild paranoia. No adverse effects to medications reported. Medication Change: No Medical Record Reviewed: Yes Consults ordered or reviewed: Medicine consult Mental Status Examination - Cognitive Function Orientation: Person, Place, Situation, Time Memory: Intact Attention: WNL Concentration: WNL Fund of Knowledge: WNL Decription of patient's judgement and insights: Fair I/J - Mood Mood: Depressed - Affect Affect: Constricted, Depressed - Formal Thought Process Formal Thought Process: Paranoia, Circumstantial Psychotic Thoughts and Behaviors: No AH/VH - Suicidal Ideation Suicidal Ideation: Yes - Homicidal Ideation Homicidal Ideation: No Goal/Treatment Plan - Goal/Treatment Plan Need for Continued Stay: Remain at risks for inpatient hospitalization, Severe depression anxiety, Discharge may exacerbated symptoms Progress Toward Problem(s) and Goals/Treatment Plan: Schizoaffective Disorder; PTSD -Continue Clozapine 300 mg PO HS -Continue Klonopin -Medicine consult -Individual and group therapy -Psychoeducation -Consider treatment w/ ECT -Disposition planning
[2018-12-11] MEDS: Pravastatin Sodium 40 MG TAB PO SCH (21:12)
--- NOTE | 2018-12-11 21:30 | CP.PCM.PN ---
Subjective - Date & Time of Evaluation Date of Evaluation: 12/11/18 Time of Evaluation: 09:45 - Subjective Subjective: Pt was seen and assessed at bedside. No major complaints other than lack of energy and fatigue. He is calm and cooperative at this time. Objective - Vital Signs/Intake and Output Vital Signs (last 24 hours): Temp Pulse Resp BP Pulse Ox 97.8 F 88 18 133/84 99 12/11/18 16:02 12/11/18 16:02 12/11/18 16:02 12/11/18 16:02 12/09/18 16:47 - Medications Medications: Current Medications Acetaminophen (Tylenol 325mg Tab) 650 mg PO Q4 PRN PRN Reason: Pain (4-7) Al Hydrox/Mg Hydrox/Simethicone (Maalox Plus 30 Ml) 30 ml PO Q4 PRN PRN Reason: Dyspepsia Atorvastatin Calcium (Lipitor) 40 mg PO HS [facility] Clonazepam (Klonopin) 0.5 mg PO BID [facility] Last Admin: 12/11/18 16:31 Dose: 0.5 mg Clozapine (Clozaril) 300 mg PO HS [facility] Last Admin: 12/11/18 21:12 Dose: 300 mg Diphenhydramine HCl (Benadryl) 50 mg PO Q6 PRN PRN Reason: Extrapyramidal Symptoms Docusate Sodium (Colace) 100 mg PO BID [facility] Last Admin: 12/11/18 16:32 Dose: 100 mg Duloxetine HCl (Cymbalta) 30 mg PO DAILY [facility] Last Admin: 12/11/18 16:31 Dose: 30 mg Haloperidol (Haldol) 5 mg PO Q4 PRN PRN Reason: Agitation Haloperidol Lactate (Haldol) 5 mg IM Q4 PRN PRN Reason: Agitation, Unable to Take PO Levothyroxine Sodium (Synthroid) 88 mcg PO DAILY@0630 [facility] Last Admin: 12/11/18 06:08 Dose: 88 mcg Lorazepam (Ativan) 2 mg IM Q6 PRN PRN Reason: Anxiety/Agitation,Unable PO Lorazepam (Ativan) 1 mg PO Q6 PRN PRN Reason: Anxiety/Agitation Magnesium Hydroxide (Milk Of Magnesia) 30 ml PO HS PRN PRN Reason: Constipation Multivitamins/Minerals (Therapeutic-M Tab) 1 tab PO DAILY [facility] Last Admin: 12/11/18 08:33 Dose: 1 tab Sennosides (Senokot Tab) 8.6 mg PO BID [facility] Last Admin: 12/11/18 16:31 Dose: 8.6 mg Vitamin D (Vitamin D 400 Intl Units Tab) 400 intlu PO DAILY [facility] Last Admin: 12/11/18 08:33 Dose: 400 intlu - Labs Labs: 12/07/18 18:37 12/10/18 07:10 PT 12.3 Seconds (9.8-13.1) 12/07/18 18:37 INR 1.1 12/07/18 18:37 APTT 32.2 Seconds (25.6-37.1) 12/07/18 18:37 - Head Exam Head Exam: NORMAL INSPECTION - Eye Exam Eye Exam: EOMI, Normal appearance Pupil Exam: NORMAL ACCOMODATION - ENT Exam ENT Exam: Mucous Membranes Moist - Neck Exam Neck Exam: Full ROM - Respiratory Exam Respiratory Exam: Clear to Ausculation Bilateral - Cardiovascular Exam Cardiovascular Exam: REGULAR RHYTHM, +S1, +S2 - GI/Abdominal Exam GI & Abdominal Exam: Soft, Normal Bowel Sounds - Extremities Exam Extremities Exam: Full ROM, Normal Capillary Refill, Normal Inspection - Neurological Exam Neurological Exam: Alert, Awake Neuro motor strength exam: Left Upper Extremity: 5, Right Upper Extremity: 5, Left Lower Extremity: 5, Right Lower Extremity: 5 - Psychiatric Exam Psychiatric exam: Normal Affect - Skin Skin Exam: Dry, Pallor, Warm Assessment and Plan - Assessment and Plan (Free Text) Plan: -Schizoaffective disorder -follow recommendations of psych. -On Clozapine and Klonopin -individual and group therapy. -Currently, the pt is medically stable for ECT and remains an ideal candidate. -Hyperlipidemia -D/Cd pravastatin; started on atorvastatin 40 mg HS.
[2018-12-12] MEDS: Levothyroxine 88 MCG TAB PO SCH (05:50)
[2018-12-12] MEDS: Cholecalciferol 400 Intl Units Tab PO SCH (08:36)
[2018-12-12] MEDS: Multivitamin With Minerals Tab PO SCH (08:36)
--- NOTE | 2018-12-12 13:52 | PCM.PYCHPN ---
Psychiatric Progress Note - Psychiatric Progress Note Patient seen today, length of contact: Pt evaluated, case discussed w/ team, chart reviewed Patient Chief Complaint: "I was having suicidal thoughts." Problems Identified/Issues Discussed: Patient continues to be depressed w/ continued suicidal ideation. He reports daily thoughts of suicide and feels that life is not worth living. NO AH/VH. +Mild paranoia. No adverse effects to medications reported. Medication Change: Yes (Pt started on Cymbalta yesterday) Medical Record Reviewed: Yes Consults ordered or reviewed: Medicine consult Mental Status Examination - Cognitive Function Orientation: Person, Place, Situation, Time Memory: Intact Attention: WNL Concentration: WNL Fund of Knowledge: WNL Decription of patient's judgement and insights: Fair I/J - Mood Mood: Depressed - Affect Affect: Constricted, Depressed - Formal Thought Process Formal Thought Process: Paranoia, Circumstantial Psychotic Thoughts and Behaviors: No AH/VH - Suicidal Ideation Suicidal Ideation: Yes - Homicidal Ideation Homicidal Ideation: No Goal/Treatment Plan - Goal/Treatment Plan Need for Continued Stay: Remain at risks for inpatient hospitalization, Severe depression anxiety, Discharge may exacerbated symptoms Progress Toward Problem(s) and Goals/Treatment Plan: Schizoaffective Disorder; PTSD -Continue Cymbalta -Continue Clozapine -Continue Klonopin -Medicine consult -Individual and group therapy -Psychoeducation -Consider treatment w/ ECT -Disposition planning
--- NOTE | 2018-12-12 20:32 | CP.PCM.PN ---
Subjective - Date & Time of Evaluation Date of Evaluation: 12/12/18 Time of Evaluation: 11:00 - Subjective Subjective: Patient remains stable Has no chest pain or SOB Has slight nasal congestion. Has no fever Objective - Vital Signs/Intake and Output Vital Signs (last 24 hours): Temp Pulse Resp BP Pulse Ox 98.2 F 82 19 114/77 99 12/12/18 16:07 12/12/18 16:07 12/12/18 16:07 12/12/18 16:07 12/09/18 16:47 - Medications Medications: Current Medications Acetaminophen (Tylenol 325mg Tab) 650 mg PO Q4 PRN PRN Reason: Pain (4-7) Al Hydrox/Mg Hydrox/Simethicone (Maalox Plus 30 Ml) 30 ml PO Q4 PRN PRN Reason: Dyspepsia Atorvastatin Calcium (Lipitor) 40 mg PO [facility] Clonazepam (Klonopin) 0.5 mg PO BID [facility] Last Admin: 12/12/18 16:14 Dose: 0.5 mg Clozapine (Clozaril) 300 mg PO [facility] Last Admin: 12/11/18 21:12 Dose: 300 mg Diphenhydramine HCl (Benadryl) 50 mg PO Q6 PRN PRN Reason: Extrapyramidal Symptoms Docusate Sodium (Colace) 100 mg PO BID [facility] Last Admin: 12/12/18 16:15 Dose: 100 mg Duloxetine HCl (Cymbalta) 30 mg PO BID [facility] Last Admin: 12/12/18 16:15 Dose: 30 mg Fluticasone Propionate (Flonase) 1 spr THA BID [facility] Last Admin: 12/12/18 16:16 Dose: 1 spr Haloperidol (Haldol) 5 mg PO Q4 PRN PRN Reason: Agitation Haloperidol Lactate (Haldol) 5 mg IM Q4 PRN PRN Reason: Agitation, Unable to Take PO Lactulose (Enulose) 20 gm PO DAILY PRN PRN Reason: Constipation Last Admin: 12/12/18 12:24 Dose: 20 gm Levothyroxine Sodium (Synthroid) 88 mcg PO DAILY@0630 [facility] Last Admin: 12/12/18 05:50 Dose: 88 mcg Lorazepam (Ativan) 2 mg IM Q6 PRN PRN Reason: Anxiety/Agitation,Unable PO Lorazepam (Ativan) 1 mg PO Q6 PRN PRN Reason: Anxiety/Agitation Magnesium Hydroxide (Milk Of Magnesia) 30 ml PO HS PRN PRN Reason: Constipation Multivitamins/Minerals (Therapeutic-M Tab) 1 tab PO DAILY [facility] Last Admin: 12/12/18 08:36 Dose: 1 tab Sennosides (Senokot Tab) 8.6 mg PO BID [facility] Last Admin: 12/12/18 16:14 Dose: 8.6 mg Vitamin D (Vitamin D 400 Intl Units Tab) 400 intlu PO DAILY [facility] Last Admin: 12/12/18 08:36 Dose: 400 intlu - Labs Labs: 12/07/18 18:37 12/10/18 07:10 PT 12.3 Seconds (9.8-13.1) 12/07/18 18:37 INR 1.1 12/07/18 18:37 APTT 32.2 Seconds (25.6-37.1) 12/07/18 18:37 - Head Exam Head Exam: NORMAL INSPECTION - Eye Exam Eye Exam: Normal appearance - ENT Exam ENT Exam: Mucous Membranes Moist - Respiratory Exam Respiratory Exam: Clear to Ausculation Bilateral - Cardiovascular Exam Cardiovascular Exam: REGULAR RHYTHM - GI/Abdominal Exam GI & Abdominal Exam: Normal Bowel Sounds - Neurological Exam Neurological Exam: Awake, Oriented x3 Assessment and Plan (1) HLD (hyperlipidemia) Status: Chronic (2) Hypothyroidism Status: Chronic (3) Depression Status: Acute (4) Rhinitis Status: Acute - Assessment and Plan (Free Text) Plan: Cont meds nasacort bid Cont tx Cont meds medically stable for ECT
[2018-12-13] MEDS: Levothyroxine 88 MCG TAB PO SCH (05:38)
[2018-12-13] MEDS: Multivitamin With Minerals Tab PO SCH (08:45)
[2018-12-13] MEDS: Cholecalciferol 400 Intl Units Tab PO SCH (08:47)
--- NOTE | 2018-12-13 11:12 | PCM.PYCHPN ---
Psychiatric Progress Note - Psychiatric Progress Note Patient seen today, length of contact: Pt evaluated, case discussed w/ team, chart reviewed Patient Chief Complaint: "I was having suicidal thoughts." Problems Identified/Issues Discussed: Patient continues to be depressed w/ continued suicidal ideation. He reports daily thoughts of suicide and feels that life is not worth living. NO AH/VH. +Mild paranoia. No adverse effects to medications reported. Medication Change: Yes (Pt started on Cymbalta yesterday) Medical Record Reviewed: Yes Mental Status Examination - Cognitive Function Orientation: Person, Place, Situation, Time Memory: Intact Attention: WNL Concentration: WNL Fund of Knowledge: WNL Decription of patient's judgement and insights: Fair I/J - Mood Mood: Depressed - Affect Affect: Constricted, Depressed - Formal Thought Process Formal Thought Process: Paranoia, Circumstantial Psychotic Thoughts and Behaviors: No AH/VH - Suicidal Ideation Suicidal Ideation: Yes - Homicidal Ideation Homicidal Ideation: No Goal/Treatment Plan - Goal/Treatment Plan Need for Continued Stay: Remain at risks for inpatient hospitalization, Severe depression anxiety, Discharge may exacerbated symptoms Progress Toward Problem(s) and Goals/Treatment Plan: Schizoaffective Disorder; PTSD -Continue Cymbalta -Continue Clozapine -Continue Klonopin -Medicine consult -Individual and group therapy -Psychoeducation -Consider treatment w/ ECT -Disposition planning
--- NOTE | 2018-12-13 12:28 | PCM.PYCHPN ---
Psychiatric Progress Note - Psychiatric Progress Note Patient seen today, length of contact: Pt evaluated, case discussed w/ team, chart reviewed Patient Chief Complaint: "I was having suicidal thoughts." Problems Identified/Issues Discussed: Patient continues to be depressed w/ continued suicidal ideation. NO AH/VH. +Mild paranoia. No adverse effects to medications reported. Additional psychiatric history obtained: He was initially treated with outpatient therapy in 1983 with tricyclics and an antipsychotic; patient does not recall the names. He reports a long history of chronic paranoia and chronic depression. He was later switched to Klonopin in the . In 1987, patient starting attending a Bipolar Clinic, and was treated with Loris, Tegretol, Nardil and Klonopin. In 1990, patient switched psychiatrist and was switched to Prozac and continued on Klonopin; he was later switched to Zoloft and eventually Wellbutrin was added to counteract sexual adverse effects. Patient also started AA in 1990, but had not drank alcohol since 1983. First and seconds psychiatric admissions in (does not recall exact years) at [facility] in [facility], for depression. In the , patient was no longer complaint with AA, but did not relapse on alcohol. 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 In the , patient was also started on Adderall, Ritalin, Amphetamine Salts for fatigue. He also reports being treated with other antidepressants, but does not recall the names, states that Effexor was likely one of them. In 2009, he resigned from his job due to difficulty maintaining employment. 2010 patient has his first suicide attempts. He states that he was putting a rope up daily, he would put the rope around his neck but would not jump. He had 6 psychiatric hospitalizations in 2010 ([facility]- received 7-8 ECT treatments, [facility], [facility], [facility]). He reports multiple medication changes at the times, but is unable to recall which ones. He was admitted to [facility] in 2009 for chronic suicidal ideation and then was discharge to a [facility]. In the past 6 years he has been treated with Effexor, Modafinil, Klonopin. He can not recall other medications he was treated on. 2016, he switched psychiatrist to Dr. Sumner and his medications were changed in 2018 to Wellbutrin 150 mg PO Daily, Klonopin. Patient was admitted to [facility] 04/14 and was treated w/ Anafranil 50 mg PO Daily/50 mg PO HS, Klonopin 0.5 mg PO TID and Seroquel 300 mg PO HS. Following this discharge, his outpatient psychiatrist took him off the Anafranil and put him back on Wellbutrin. Patient was admitted to [facility] 10/15 and was treated with Wellbutrin 150 mg PO Daily, Klonopin 0.5 mg PO BID, Seroquel 50 mg PO Daily/400 mg PO HS. After his second discharge from [facility], patient attempted suicide by [place] front of subway tracks but the train stopped. Patient was taken to [facility] ([facility]) and was taken off Wellbutrin and was started on Clozaril and titrated up to 250 mg PO HS. Patient was supposed to treatment at our partial hospitalization and went to the initial appointment. Patient was admitted to the current admission on 3NS for worsening depression and suicidal ideation. Medication Change: No Medical Record Reviewed: Yes Consults ordered or reviewed: Medicine consult Mental Status Examination - Cognitive Function Orientation: Person, Place, Situation, Time Memory: Intact Attention: WNL Concentration: WNL Fund of Knowledge: WNL Decription of patient's judgement and insights: Fair I/J - Mood Mood: Depressed - Affect Affect: Constricted, Depressed - Formal Thought Process Formal Thought Process: Paranoia, Circumstantial Psychotic Thoughts and Behaviors: +Mild residual paranoia - Suicidal Ideation Suicidal Ideation: Yes - Homicidal Ideation Homicidal Ideation: No Goal/Treatment Plan - Goal/Treatment Plan Need for Continued Stay: Remain at risks for inpatient hospitalization, Severe depression anxiety, Discharge may exacerbated symptoms Progress Toward Problem(s) and Goals/Treatment Plan: Schizoaffective Disorder; PTSD -Continue Cymbalta -Continue Clozapine -Continue Klonopin -Medicine consult -Individual and group therapy -Psychoeducation -Consider treatment w/ ECT -Disposition planning
[2018-12-14] MEDS: Levothyroxine 88 MCG TAB PO SCH (05:50)
[2018-12-14] MEDS: Cholecalciferol 400 Intl Units Tab PO SCH (08:34)
[2018-12-14] MEDS: Multivitamin With Minerals Tab PO SCH (08:34)
--- NOTE | 2018-12-14 10:38 | PCM.PYCHPN ---
Psychiatric Progress Note - Psychiatric Progress Note Patient seen today, length of contact: Pt evaluated, case discussed w/ team, chart reviewed Patient Chief Complaint: Depression Problems Identified/Issues Discussed: Patient continues to report feeling severe depression w/ low motivation/energy and mild paranoia. He continues to have suicidal ideations but is able to contract for safety at this time. Medication Change: No Medical Record Reviewed: Yes Consults ordered or reviewed: Medicine consult Mental Status Examination - Cognitive Function Orientation: Person, Place, Situation, Time Memory: Intact Attention: WNL Concentration: WNL Fund of Knowledge: WNL Decription of patient's judgement and insights: Fair I/J - Mood Mood: Depressed - Affect Affect: Constricted, Depressed - Formal Thought Process Formal Thought Process: Paranoia, Circumstantial - Suicidal Ideation Suicidal Ideation: Yes - Homicidal Ideation Homicidal Ideation: No Goal/Treatment Plan - Goal/Treatment Plan Need for Continued Stay: Remain at risks for inpatient hospitalization, Severe depression anxiety, Discharge may exacerbated symptoms Progress Toward Problem(s) and Goals/Treatment Plan: Schizoaffective Disorder; PTSD -Continue Cymbalta -Continue Clozapine -Continue Klonopin -Medicine consult -Individual and group therapy -Psychoeducation -Consider treatment w/ ECT -Disposition planning
[2018-12-15] MEDS: Levothyroxine 88 MCG TAB PO SCH (06:11)
[2018-12-15] MEDS: Multivitamin With Minerals Tab PO SCH (08:17)
[2018-12-15] MEDS: Cholecalciferol 400 Intl Units Tab PO SCH (08:18)
--- NOTE | 2018-12-15 11:17 | PCM.BM ---
Treatment Plan Problems - Problems identified on initial assessmt Suicidal Ideation Date Initiated: 12/08/18 Time Initiated: 04:23 Assessment reference: NA Status: Active Priority: 1 Self Harm Date Initiated: 12/08/18 Time Initiated: 04:24 Assessment reference: NA Status: Active Priority: 2 Altered Sleep Date Initiated: 12/08/18 Time Initiated: 04:25 Assessment reference: NA Status: Active Priority: 3 Hopelessness/Helplessness Date Initiated: 12/08/18 Time Initiated: 04:26 Assessment reference: NA Status: Active Priority: 4 Feelings of Worthlessness Date Initiated: 12/08/18 Time Initiated: 04:26 Assessment reference: NA Status: Active Priority: 5 Treatment assets and liabiliti Patient Assests: adapts well, cooperative, educated, insightful, motivated, ADL independent, negotiates basic needs, good past tx response Patient Liabilities: financial problems, poor support system - Milieu Protocol Maintain good personal hygiene: daily Encourage regular showers, daily Remind patient to perform daily oral care, daily Assist patient to perform ADL's Conduct patient checks and document Observation sheet: Q15 minutes Maintain personal safety: every shift Educate patient to report safety concerns to staff, every shift Monitor environment for contraband/sharps Medication safety: Monitor for expected outcome, potential side effects: every shift, Assess barriers to learning: every shift, Assess readiness for medication education: every shift Milieu Narrative: Schizoaffective Disorder; PTSD -Continue Cymbalta -Continue Clozapine -Continue Klonopin -Medicine consult -Individual and group therapy -Psychoeducation -Consider treatment w/ ECT -Disposition planning Family Contact Family involvement: Famliy/SO not involved - Outside Agency [facility] Care involvment: Information-sharing Agency contact name: Tania Burk PROCESSING ASSISTANT Agency contact number: [phone] [place] [facility] Care involvment: Information-sharing Agency contact name: Dr. Arrieta, Ph.D Agency contact number: [phone] - Goals for Treatment Patient goals for treatment: Pt will imporve overall mood. Pt will be free of suicide thoughts. Pt will develop strategies for thought distraction when ruminating ont he past. Pt will develop strategies to reduce symptoms of anxiety. Discharge/Continuing Care - Education Needs Education Needs: Patient Medication, Patient Diagnosis/Disease Process, Patient Coping Skills, Patient Community resources, Patient Activities of Daily Living, Patient Uses of Medical Equipment, Patient Health Practices/Safety, Patient Per main Hygiene/Grooming, Patient Aftercare Safety Plan - Discharge Discharge Criteria: Tolerates medication w/o severe side effects, Free of Suicidal thoughts, Normal sleep pattern, Ability to care for self, Reduction of target symptoms, Other (Decreased depression and anxiety) Discharge to:: Other ([facility] Residential ) - Additional Comments 12/08/18 12:40 Pt seen and discussed in team meeting. Reason for hospitalization reviewed and discussed. Pt reported he was referred to the ED by his [facility] registered nurse hh case manager, Tre Burk secondary to increased fatigue and difficulty breathing. Pt reported that he was started on Clozaril and is uncertain if it's causing him to feel increasingly fatigue. Pt reported that while in the emergency room he felt hopeless. Pt stated 'I have no hope to hold on to." Pt reported that once he returns to his apartment he feels horrible and hopeless. Pt reported feeling increasingly depressed and suicide ideation with [place] [employer]. Pt reported he last attempted end of September/beginning of October by jumping in front of the train; however, the train stopped and he was pulled out of the tracks and hospitalized at [facility] in [facility]. Pt reported that he feels depressed and anxious. Pt reported that he is scheduled to start PHP at [facility] on 12/12/2018. Screen Handler informed pt that a telephone call will be made to re- schedule appointment. Pt verbalized agreement and understanding of same. Pt reported that his only support system is registered nurse hh case manager at [facility], Tania Burk. Pt signed consent for comic writer to speak to registered nurse hh case manager. Pt's medical and social issues reviewed and discussed. Pt's medications reviewed by Dr. Samuels and discussed with pt. Pt verbalized agreement to medication recommendations and adjustment. Tx plan reviewed and discussed with pt. Pt agreeable to medication change per clinical presentation. ECT discussed with pt and verbalized interest in treatment. Dr. Samuels informed pt that another psychiatrist, Dr. Juan MD will be speaking to him to review ECT treatment. Pt verbalized agreement. SW to continue to follow case. - Treatment Team Participation Patient/Family/SO Statement: Schizoaffective Disorder; PTSD -Continue Cymbalta -Continue Clozapine -Continue Klonopin -Medicine consult -Individual and group therapy -Psychoeducation -Consider treatment w/ ECT -Disposition planning Discussed with Family/SO: No Was Patient/Family/SO present at Treatment Team Meeting: Yes Treatment Plan Review Patient participation: Yes Family/SO/Caregiver participation: No Additional Comments: Pt seen and discussed in team meeting. Pt's progress and bx on the unit reviewed and discussed. Pt reported feeling depressed and less frequent suicide ideati on/thoughts. Pt contracted for safety on the unit. Pt reported no plan. Pt reported feeling less anxious. Pt reported sleep is "ok." Pt reported that Seroquel used to make his sleepy so he hopes that Clozaril will do the same. Pt reported his mood is "fair." Affect is constricted. Pt reported that last night during dinner he felt more energetic than before. Pt reported he is not sure if it was because of the medication or because he had caffeine. Pt's medications were reviewed and reported no adverse affect. Dr. Samuels reviewed pt's medications with him. Tx plan reviewed and discussed. Pt verbalized agreement to current tx plan and ECT. Pt being followed by Dr. Juan MD for possible ECT. Screen Handler will continue to follow case. - Problem Suicidal Ideation Date Initiated: 12/08/18 Time Initiated: 04:23 Progress toward outcomes: unchanged (Pt continues to express suicide ideation/th oughts; however, less frequent. Pt reported no plan. Pt contracted for safety on the unit.) Self Harm Date Initiated: 12/08/18 Time Initiated: 04:24 Progress toward outcomes: improved (Pt reported no self-injurious bx's.) Altered Sleep Date Initiated: 12/08/18 Time Initiated: 04:25 Progress toward outcomes: unchanged (Pt continues to express difficulty with sleep pattern.) Hopelessness/Helplessness Date Initiated: 12/08/18 Time Initiated: 04:26 Progress toward outcomes: unchanged (Pt continues to report feelings of hopelessness/helplessness.) Feelings of Worthlessness Date Initiated: 12/08/18 Time Initiated: 04:26 Progress toward outcomes: unchanged - Discharge / Continuing Care Discharge to:: Other ([facility]) Behavioral Health Services: Partial hospital (Referral will be made to [facility] upon stabilziation and discharge) Health Needs: Follow up care/test, Doctor appointments, Nutritional, Medications/Rx, Educational, Recreational/Social
--- NOTE | 2018-12-15 11:20 | PCM.PYCHPN ---
Psychiatric Progress Note - Psychiatric Progress Note Patient seen today, length of contact: Pt evaluated, case discussed w/ team, chart reviewed Patient Chief Complaint: Depression Problems Identified/Issues Discussed: Patient continues to report depressed mood, but states that he feels like he is starting to have more energy. We discussed attempting to taper the Klonopin. He continues to reports daily suicidal ideation, but states that the thoughts are less frequent. He is able to contract for safety at this time. Medication Change: No Medical Record Reviewed: Yes Consults ordered or reviewed: Medicine consult Mental Status Examination - Cognitive Function Orientation: Person, Place, Situation, Time Memory: Intact Attention: WNL Concentration: WNL Fund of Knowledge: WNL Decription of patient's judgement and insights: Fair I/J - Mood Mood: Depressed - Affect Affect: Constricted, Depressed - Formal Thought Process Formal Thought Process: Paranoia, Circumstantial - Suicidal Ideation Suicidal Ideation: Yes - Homicidal Ideation Homicidal Ideation: No Goal/Treatment Plan - Goal/Treatment Plan Need for Continued Stay: Remain at risks for inpatient hospitalization, Severe depression anxiety, Discharge may exacerbated symptoms Progress Toward Problem(s) and Goals/Treatment Plan: Schizoaffective Disorder; PTSD -Continue Cymbalta -Continue Clozapine -Taper Klonopin -Medicine consult -Individual and group therapy -Psychoeducation -Consider treatment w/ ECT -Disposition planning
[2018-12-16] MEDS: Levothyroxine 88 MCG TAB PO SCH (05:46)
[2018-12-16] MEDS: Multivitamin With Minerals Tab PO SCH (09:08)
[2018-12-16] MEDS: Cholecalciferol 400 Intl Units Tab PO SCH (09:09)
--- NOTE | 2018-12-16 16:30 | PCM.PYCHPN ---
Psychiatric Progress Note - Psychiatric Progress Note Patient seen today, length of contact: Pt evaluated, case discussed w/ team, chart reviewed Patient Chief Complaint: pt has remained very depressed with on and off suicidal thoughts but is able to contract fir safety..pt is tolerating cymbalta and clozaril well and beginning to have some improvement in the energy level.no side effects to meds . Medication Change: No Medical Record Reviewed: Yes Mental Status Examination - Cognitive Function Orientation: Person, Place, Situation, Time Memory: Intact Attention: WNL Concentration: WNL Fund of Knowledge: WNL - Mood Mood: Depressed - Affect Affect: Constricted, Depressed - Formal Thought Process Formal Thought Process: Paranoia, Circumstantial - Suicidal Ideation Suicidal Ideation: Yes - Homicidal Ideation Homicidal Ideation: No Goal/Treatment Plan - Goal/Treatment Plan Need for Continued Stay: Remain at risks for inpatient hospitalization, Severe depression anxiety, Discharge may exacerbated symptoms Progress Toward Problem(s) and Goals/Treatment Plan: Continue to stabilize with clozaril and cymbalta and engage pt in therapy. will consider ECT if does not improve with meds .
[2018-12-17] MEDS: Levothyroxine 88 MCG TAB PO SCH (05:37)
[2018-12-17] MEDS: Cholecalciferol 400 Intl Units Tab PO SCH (08:55)
[2018-12-17] MEDS: Multivitamin With Minerals Tab PO SCH (08:56)
--- NOTE | 2018-12-17 13:05 | PCM.PYCHPN ---
Psychiatric Progress Note - Psychiatric Progress Note Patient seen today, length of contact: Pt evaluated, case discussed w/ team, chart reviewed Patient Chief Complaint: pt has remained isolated and with anhedonia and decreased energy level.pt hax remained very depressed with on and off negative thoughts .pt is tolrating cymbalta and clozaril well but has not improved and is looking forward to ECT treatment.pt denies suicidal thoughts at this time. Medication Change: No Medical Record Reviewed: Yes Mental Status Examination - Cognitive Function Orientation: Person, Place, Situation, Time Memory: Intact Attention: WNL Concentration: WNL Fund of Knowledge: WNL - Mood Mood: Depressed - Affect Affect: Constricted, Depressed - Formal Thought Process Formal Thought Process: Paranoia, Circumstantial - Suicidal Ideation Suicidal Ideation: Yes - Homicidal Ideation Homicidal Ideation: No Goal/Treatment Plan - Goal/Treatment Plan Need for Continued Stay: Remain at risks for inpatient hospitalization, Severe depression anxiety, Discharge may exacerbated symptoms Progress Toward Problem(s) and Goals/Treatment Plan: Continue to stabilize with clozaril and cymbalta and engage pt in therapy. will consider ECT if does not improve with meds .
[2018-12-18] MEDS: Levothyroxine 88 MCG TAB PO SCH (05:57)
--- NOTE | 2018-12-18 07:56 | PCM.PYCHPN ---
Psychiatric Progress Note - Psychiatric Progress Note Patient seen today, length of contact: Pt evaluated, case discussed w/ team, chart reviewed Patient Chief Complaint: Depression Problems Identified/Issues Discussed: Patient continues to report depressed mood, w/ low energy in the morning. He continues to report intermittent suicidal thoughts, but denies active plan/intent. We discussed continued tapering of Klonopin. Medication Change: Yes (Taper Klonopin) Medical Record Reviewed: Yes Consults ordered or reviewed: Medicine consult Mental Status Examination - Cognitive Function Orientation: Person, Place, Situation, Time Memory: Intact Attention: WNL Concentration: WNL Fund of Knowledge: WNL Decription of patient's judgement and insights: Fair I/J - Mood Mood: Depressed - Affect Affect: Constricted, Depressed - Formal Thought Process Formal Thought Process: Circumstantial Psychotic Thoughts and Behaviors: Denies acute AH/VH - Suicidal Ideation Suicidal Ideation: Yes - Homicidal Ideation Homicidal Ideation: No Goal/Treatment Plan - Goal/Treatment Plan Need for Continued Stay: Remain at risks for inpatient hospitalization, Severe depression anxiety, Discharge may exacerbated symptoms Progress Toward Problem(s) and Goals/Treatment Plan: Schizoaffective Disorder; PTSD -Continue Cymbalta -Continue Clozapine -Taper Klonopin -Medicine consult -Individual and group therapy -Psychoeducation -Consider treatment w/ ECT -Disposition planning
[2018-12-18] MEDS: Cholecalciferol 400 Intl Units Tab PO SCH (08:27)
[2018-12-18] MEDS: Multivitamin With Minerals Tab PO SCH (08:27)
--- NOTE | 2018-12-18 09:41 | CP.PCM.PN ---
Subjective - Date & Time of Evaluation Date of Evaluation: 12/15/18 Time of Evaluation: 11:30 - Subjective Subjective: Patient is stable Has no chest pain or SOB Has better appetite. Objective - Vital Signs/Intake and Output Vital Signs (last 24 hours): Temp Pulse Resp BP Pulse Ox 97.5 F L 83 18 132/80 99 12/18/18 06:00 12/18/18 06:00 12/18/18 06:00 12/18/18 06:00 12/09/18 16:47 - Medications Medications: Current Medications Acetaminophen (Tylenol 325mg Tab) 650 mg PO Q4 PRN PRN Reason: Pain (4-7) Al Hydrox/Mg Hydrox/Simethicone (Maalox Plus 30 Ml) 30 ml PO Q4 PRN PRN Reason: Dyspepsia Atorvastatin Calcium (Lipitor) 40 mg PO [facility] Last Admin: 12/17/18 22:19 Dose: 40 mg Clonazepam (Klonopin) 0.5 mg PO DAILY@1700 [facility] Last Admin: 12/17/18 16:15 Dose: 0.5 mg Clozapine (Clozaril) 300 mg PO [facility] Last Admin: 12/17/18 22:19 Dose: 300 mg Diphenhydramine HCl (Benadryl) 50 mg PO Q6 PRN PRN Reason: Extrapyramidal Symptoms Docusate Sodium (Colace) 100 mg PO BID [facility] Last Admin: 12/18/18 08:25 Dose: 100 mg Duloxetine HCl (Cymbalta) 30 mg PO BID [facility] Last Admin: 12/18/18 08:27 Dose: 30 mg Fluticasone Propionate (Flonase) 1 spr THA BID [facility] Last Admin: 12/18/18 08:26 Dose: Not Given Lactulose (Enulose) 20 gm PO DAILY PRN PRN Reason: Constipation Last Admin: 12/12/18 12:24 Dose: 20 gm Levothyroxine Sodium (Synthroid) 88 mcg PO DAILY@0630 [facility] Last Admin: 12/18/18 05:57 Dose: 88 mcg Lorazepam (Ativan) 2 mg IM Q6 PRN PRN Reason: Anxiety/Agitation,Unable PO Lorazepam (Ativan) 1 mg PO Q6 PRN PRN Reason: Anxiety/Agitation Magnesium Hydroxide (Milk Of Magnesia) 30 ml PO PRN PRN Reason: Constipation Multivitamins/Minerals (Therapeutic-M Tab) 1 tab PO DAILY [facility] Last Admin: 12/18/18 08:27 Dose: 1 tab Sennosides (Senokot Tab) 8.6 mg PO BID [facility] Last Admin: 12/18/18 08:25 Dose: 8.6 mg Vitamin D (Vitamin D 400 Intl Units Tab) 400 intlu PO DAILY [facility] Last Admin: 12/18/18 08:27 Dose: 400 intlu - Labs Labs: 12/07/18 18:37 12/10/18 07:10 PT 12.3 Seconds (9.8-13.1) 12/07/18 18:37 INR 1.1 12/07/18 18:37 APTT 32.2 Seconds (25.6-37.1) 12/07/18 18:37 - Head Exam Head Exam: NORMAL INSPECTION - Eye Exam Eye Exam: Normal appearance - ENT Exam ENT Exam: Mucous Membranes Moist - Respiratory Exam Respiratory Exam: Clear to Ausculation Bilateral - Cardiovascular Exam Cardiovascular Exam: REGULAR RHYTHM Assessment and Plan (1) HLD (hyperlipidemia) Status: Chronic (2) Hypothyroidism Status: Chronic (3) Depression Status: Acute (4) Rhinitis Status: Acute - Assessment and Plan (Free Text) Plan: Cont meds Con ttx Cont psych mgt
[2018-12-19] MEDS: Levothyroxine 88 MCG TAB PO SCH (05:51)
[2018-12-19] MEDS: Cholecalciferol 400 Intl Units Tab PO SCH (08:55)
[2018-12-19] MEDS: Multivitamin With Minerals Tab PO SCH (08:55)
--- NOTE | 2018-12-19 09:32 | PCM.PYCHPN ---
Psychiatric Progress Note - Psychiatric Progress Note Patient seen today, length of contact: Pt evaluated, case discussed w/ team, chart reviewed Patient Chief Complaint: Depression Problems Identified/Issues Discussed: Patient continues to report depressed mood and intermittent suicidal ideations w/o current plan/intent. He reports that he feels that he has more energy in the daytime. Klonopin was tapered again yesterday and he expressed concerns that he thinks about alcohol more when he does not have the Klonopin (patient has been sober for many years). No adverse effects to medications reported. Medication Change: No Medical Record Reviewed: Yes Consults ordered or reviewed: Medicine consult Mental Status Examination - Cognitive Function Orientation: Person, Place, Situation, Time Memory: Intact Attention: WNL Concentration: WNL Fund of Knowledge: WNL Decription of patient's judgement and insights: Fair I/J - Mood Mood: Depressed - Affect Affect: Constricted, Depressed - Formal Thought Process Formal Thought Process: Circumstantial Psychotic Thoughts and Behaviors: Denies acute AH/VH - Suicidal Ideation Suicidal Ideation: Yes - Homicidal Ideation Homicidal Ideation: No Goal/Treatment Plan - Goal/Treatment Plan Need for Continued Stay: Remain at risks for inpatient hospitalization, Severe depression anxiety, Discharge may exacerbated symptoms Progress Toward Problem(s) and Goals/Treatment Plan: Schizoaffective Disorder; PTSD -Continue Cymbalta -Continue Clozapine -Continue Klonopin, will continue to taper gradually -Medicine consult -Individual and group therapy -Psychoeducation -Consider treatment w/ ECT -Disposition planning
[2018-12-20] MEDS: Levothyroxine 88 MCG TAB PO SCH (06:00)
[2018-12-20] MEDS: Multivitamin With Minerals Tab PO SCH (08:37)
[2018-12-20] MEDS: Cholecalciferol 400 Intl Units Tab PO SCH (08:38)
--- NOTE | 2018-12-20 12:09 | PCM.PYCHPN ---
Psychiatric Progress Note - Psychiatric Progress Note Patient seen today, length of contact: Pt evaluated, case discussed w/ team, chart reviewed Patient Chief Complaint: Depression Problems Identified/Issues Discussed: Patient continues to report depressed mood, but reports the he has more energy during the day. He denies acute SI, but continues to have intermittent SI w/o current plan/intent. No adverse effects to medications reported. Medication Change: No Medical Record Reviewed: Yes Consults ordered or reviewed: Medicine consult Mental Status Examination - Cognitive Function Orientation: Person, Place, Situation, Time Memory: Intact Attention: WNL Concentration: WNL Fund of Knowledge: WNL Decription of patient's judgement and insights: Fair I/J - Mood Mood: Depressed - Affect Affect: Constricted, Depressed - Formal Thought Process Formal Thought Process: Circumstantial Psychotic Thoughts and Behaviors: Denies acute AH/VH - Suicidal Ideation Suicidal Ideation: Yes - Homicidal Ideation Homicidal Ideation: No Goal/Treatment Plan - Goal/Treatment Plan Need for Continued Stay: Remain at risks for inpatient hospitalization, Severe depression anxiety, Discharge may exacerbated symptoms Progress Toward Problem(s) and Goals/Treatment Plan: Schizoaffective Disorder; PTSD -Continue Cymbalta -Continue Clozapine -Continue Klonopin, will continue to taper gradually -Medicine consult -Individual and group therapy -Psychoeducation -Consider treatment w/ ECT -Disposition planning
[2018-12-21] MEDS: Levothyroxine 88 MCG TAB PO SCH (05:30)
[2018-12-21] MEDS: Multivitamin With Minerals Tab PO SCH (08:25)
[2018-12-21] MEDS: Cholecalciferol 400 Intl Units Tab PO SCH (08:26)
--- NOTE | 2018-12-21 11:34 | PCM.PYCHPN ---
Psychiatric Progress Note - Psychiatric Progress Note Patient seen today, length of contact: Pt evaluated, case discussed w/ team, chart reviewed Patient Chief Complaint: Depression Problems Identified/Issues Discussed: Patient continues to report severe depression, w/ intermittent feelings of hopelessness. He denies acute SI, but continues to have intermittent SI w/o current plan/intent. No adverse effects to medications reported. Medication Change: No Medical Record Reviewed: Yes Consults ordered or reviewed: Medicine consult Mental Status Examination - Cognitive Function Orientation: Person, Place, Situation, Time Memory: Intact Attention: WNL Concentration: WNL Fund of Knowledge: WNL Decription of patient's judgement and insights: Fair I/J - Mood Mood: Depressed - Affect Affect: Constricted, Depressed - Formal Thought Process Formal Thought Process: Circumstantial Psychotic Thoughts and Behaviors: Denies acute AH/VH - Suicidal Ideation Suicidal Ideation: Yes - Homicidal Ideation Homicidal Ideation: No Goal/Treatment Plan - Goal/Treatment Plan Need for Continued Stay: Remain at risks for inpatient hospitalization, Severe depression anxiety, Discharge may exacerbated symptoms Progress Toward Problem(s) and Goals/Treatment Plan: Schizoaffective Disorder; PTSD -Continue Cymbalta -Continue Clozapine -Continue Klonopin, dose tapered -Medicine consult -Individual and group therapy -Psychoeducation -Consider treatment w/ ECT -Disposition planning
[2018-12-22] MEDS: Levothyroxine 88 MCG TAB PO SCH (06:01)
[2018-12-22] MEDS: Multivitamin With Minerals Tab PO SCH (08:51)
[2018-12-22] MEDS: Cholecalciferol 400 Intl Units Tab PO SCH (08:52)
--- NOTE | 2018-12-22 11:35 | PCM.PYCHPN ---
Psychiatric Progress Note - Psychiatric Progress Note Patient seen today, length of contact: Pt evaluated, case discussed w/ team, chart reviewed Patient Chief Complaint: Depression Problems Identified/Issues Discussed: Patient continues to report severe depression, w/ intermittent feelings of hopelessness and intermittent suicidal ideations to jump [place] front of [place]. He is able to contract for safety at this time. No adverse effects to medications reported. Medication Change: No Medical Record Reviewed: Yes Consults ordered or reviewed: Medicine consult Mental Status Examination - Cognitive Function Orientation: Person, Place, Situation, Time Memory: Intact Attention: WNL Concentration: WNL Fund of Knowledge: WNL Decription of patient's judgement and insights: Fair I/J - Mood Mood: Depressed - Affect Affect: Constricted, Depressed - Formal Thought Process Formal Thought Process: Circumstantial Psychotic Thoughts and Behaviors: Denies acute AH/VH - Suicidal Ideation Suicidal Ideation: Yes Plan: Jump in front of a subway - Homicidal Ideation Homicidal Ideation: No Goal/Treatment Plan - Goal/Treatment Plan Need for Continued Stay: Remain at risks for inpatient hospitalization, Severe depression anxiety, Discharge may exacerbated symptoms Progress Toward Problem(s) and Goals/Treatment Plan: Schizoaffective Disorder; PTSD -Continue Cymbalta -Continue Clozapine -Continue Klonopin, dose tapered -Medicine consult -Individual and group therapy -Psychoeducation -Consider treatment w/ ECT; Dr. Martinez consulted -Disposition planning
--- NOTE | 2018-12-22 12:53 | RAD ---
Date of service: 12/22/2018 PROCEDURE: Radiographs of the Cervical Spine. Radiographs of the Thoracic Spine. Radiographs of the Lumbar Spine. Radiographs of the Sacrum. HISTORY: CLEARANCE FOR ECT COMPARISON: No prior. FINDINGS: BONES: Normal alignment. No listhesis. No fracture. DISC SPACES: Mild multilevel disc space narrowing with anterior endplate osteophytic changes, most prominent in cervical spine. OTHER FINDINGS: None. IMPRESSION: Unremarkable radiographs of the cervical, thoracic, lumbar and sacral spine. Multilevel degenerative changes.
--- NOTE | 2018-12-22 12:54 | RAD ---
Date of service: 12/22/2018 HISTORY: CLEARANCE FOR ECT COMPARISON: Chest radiograph dated 12/07/2018 TECHNIQUE: Chest PA and lateral FINDINGS: LUNGS: No active pulmonary disease. PLEURA: No significant pleural effusion identified. No pneumothorax apparent. CARDIOVASCULAR: No aortic atherosclerotic calcification present. Normal cardiac size. No pulmonary vascular congestion. OSSEOUS STRUCTURES: Unchanged. VISUALIZED UPPER ABDOMEN: Normal. OTHER FINDINGS: None. IMPRESSION: No active disease.
--- NOTE | 2018-12-22 14:10 | PCM.BM ---
Treatment Plan Problems - Problems identified on initial assessmt Suicidal Ideation Date Initiated: 12/08/18 Time Initiated: 04:23 Assessment reference: NA Status: Active Priority: 1 Self Harm Date Initiated: 12/08/18 Time Initiated: 04:24 Assessment reference: NA Status: Active Priority: 2 Altered Sleep Date Initiated: 12/08/18 Time Initiated: 04:25 Assessment reference: NA Status: Active Priority: 3 Hopelessness/Helplessness Date Initiated: 12/08/18 Time Initiated: 04:26 Assessment reference: NA Status: Active Priority: 4 Feelings of Worthlessness Date Initiated: 12/08/18 Time Initiated: 04:26 Assessment reference: NA Status: Active Priority: 5 Treatment assets and liabiliti Patient Assests: adapts well, cooperative, educated, insightful, motivated, ADL independent, negotiates basic needs, good past tx response Patient Liabilities: financial problems, poor support system - Milieu Protocol Maintain good personal hygiene: daily Encourage regular showers, daily Remind patient to perform daily oral care, daily Assist patient to perform ADL's Conduct patient checks and document Observation sheet: Q15 minutes Maintain personal safety: every shift Educate patient to report safety concerns to staff, every shift Monitor environment for contraband/sharps Medication safety: Monitor for expected outcome, potential side effects: every shift, Assess barriers to learning: every shift, Assess readiness for medication education: every shift Milieu Narrative: Schizoaffective Disorder; PTSD -Continue Cymbalta -Continue Clozapine -Continue Klonopin, dose tapered -Medicine consult -Individual and group therapy -Psychoeducation -Consider treatment w/ ECT; Dr. Martinez consulted -Disposition planning Family Contact Family involvement: Famliy/SO not involved - Outside Agency [facility] Care involvment: Information-sharing Agency contact name: Tania Burk GUIDANCE ADVISER Agency contact number: [phone] [place] [facility] Care involent: Information-sharing Agency contact name: Dr. Arrieta, Ph.D Agency contact number: [phone] - Goals for Treatment Patient goals for treatment: Pt will imporve overall mood. Pt will be free of suicide thoughts. Pt will develop strategies for thought distraction when ruminating ont he past. Pt will develop strategies to reduce symptoms of anxiety. Discharge/Continuing Care - Education Needs Education Needs: Patient Medication, Patient Diagnosis/Disease Process, Patient Coping Skills, Patient Community resources, Patient Activities of Daily Living, Patient Uses of Medical Equipment, Patient Health Practices/Safety, Patient Personal Hygiene/Grooming, Patient Aftercare Safety Plan - Discharge Discharge Criteria: Tolerates medication w/o severe side effects, Free of Suicidal thoughts, Normal sleep pattern, Ability to care for self, Reduction of target symptoms, Other (Decreased depression and anxiety) Discharge to:: Other ([facility] Residential Facility) - Additional Comments 12/08/18 12:40 Pt seen and discussed in team meeting. Reason for hospitalization reviewed and discussed. Pt reported he was referred to the ED by his [facility] outpatient case manager, Tre Burk secondary to increased fatigue and difficulty breathing. Pt reported that he was started on Clozaril and is uncertain if it's causing him to feel increasingly fatigue. Pt reported that while in the emergency room he felt hopeless. Pt stated 'I have no hope to hold on to." Pt reported that once he returns to his apartment he feels horrible and hopeless. Pt reported feeling increasingly depressed and suicide ideation with [place]. Pt reported he last attempted end of September/beginning of October by jumping in front of the train; however, the train stopped and he was pulled out of the tracks and hospitalized at [facility]. Pt reported that he feels depressed and anxious. Pt reported that he is scheduled to start PHP at [facility] on 12/12/2018. Tag And Label Cutter informed pt that a telephone call will be made to re- schedule appointment. Pt verbalized agreement and understanding of same. Pt reported that his only support system is outpatient case manager at [facility], Tania Burk. Pt signed consent for telegraphic typewriter installer to speak to outpatient case manager. Pt's medical and social issues reviewed and discussed. Pt's medications reviewed by Dr. Samuels and discussed with pt. Pt verbalized agreement to medication recommendations and adjustment. Tx plan reviewed and discussed with pt. Pt agreeable to medication change per clinical presentation. ECT discussed with pt and verbalized interest in treatment. Dr. Samuels informed pt that another psychiatrist, Dr. Juan MD will be speaking to him to review ECT treatment. Pt verbalized agreement. SW to continue to follow case. - Treatment Team Participation Patient/Family/SO Statement: Schizoaffective Disorder; PTSD -Continue Cymbalta -Continue Clozapine -Continue Klonopin, dose tapered -Medicine consult -Individual and group therapy -Psychoeducation -Consider treatment w/ ECT; Dr. Martinez consulted -Disposition planning Discussed with Family/SO: No Was Patient/Family/SO present at Treatment Team Meeting: Yes Treatment Plan Review Patient participation: Yes Family/SO/Caregiver participation: No Additional Comments: Pt seen and discussed in team meeting. Pt's progress and bx on the unit reviewed. Pt reported feeling "down, sad and depressed." Pt reported no contributing triggers. Pt reported "on and off" suicide thoughts. Pt reported that his plan to jump in front of the subway. Pt was able to contract for safety on the unit. Pt verbalized that he will notify the RN if he does not feel safe on the unit. Pt reported that his anxiety is "ok." Pt reported that he is aware of ECT possibly beginning on Tuesday, December 27. Pt reported that he will be meeting with Dr. Juan MD to further discuss ECT. Pt reported feeling optimistic about ECT treatment. Pt also reported that he has been in contact with SERV personnel clerks supervisor, Regino in regards to his rent payment. Pt reported no concerns or adverse side affects with medications. Pt is visual on the unit. Pt is attending clinical/activity groups. Pt is appropriate with peers and staff members. Pt is compliant with medications. Sw will continue to follow case. - Problem Suicidal Ideation Date Initiated: 12/08/18 Time Initiated: 04:23 Progress toward outcomes: unchanged (Pt continues to express suicide ideation/ thoughts; however, less frequent. Pt reported his plan is to [place] front of the [place]. Pt contracted for safety on the unit.) Self Harm Date Initiated: 12/08/18 Time Initiated: 04:24 Progress toward outcomes: improved (Pt reported no self-injurious bx's.) Altered Sleep Date Initiated: 12/08/18 Time Initiated: 04:25 Progress toward outcomes: improved (Pt reported improvement in sleep pattern.) Hopelessness/Helplessness Date Initiated: 12/08/18 Time Initiated: 04:26 Progress toward outcomes: improved (Pt reported feeling optimistic about ECT treatment. Pt reported feeling less hopeless and helpless.) Feelings of Worthlessness Date Initiated: 12/08/18 Time Initiated: 04:26 Progress toward outcomes: unchanged - Discharge / Continuing Care Discharge to:: Residential ([facility]) Behavioral Health Services: Partial hospital (Pt being referred to [facility]) Health Needs: Follow up care/test, Doctor appointments, Nutritional, Medications/Rx, Educational, Recreational/Social
--- NOTE | 2018-12-22 14:26 | CARD ---
APPROVED REPORT Date of service: 12/22/2018 EKG Measurement Heart [id number] <Conclusion> Normal sinus rhythm Normal Electrocardiogram
[2018-12-22 14:56] LABS: SQUAMOUS EPITHIAL < 1 /hpf (0-5); URINE BILIRUBIN NEGATIVE (NEGATIVE); URINE BLOOD NEGATIVE (NEGATIVE); URINE CLARITY CLEAR (Clear); URINE COLOR STRAW (YELLOW); URINE GLUCOSE (UA) NEG (NEGATIVE); URINE LEUKOCYTE ESTERASE NEG Leu/uL (Negative); URINE PROTEIN NEGATIVE (NEGATIVE); URINE UROBILINOGEN 0.2-1.0 mg/dL (0.2-1.0)
--- NOTE | 2018-12-22 15:22 | CT ---
Date of service: 12/22/2018 PROCEDURE: CT HEAD WITHOUT CONTRAST. HISTORY: MEDICAL CLEARANCE FOR ECT COMPARISON: No prior study available for comparison TECHNIQUE: Axial computed tomography images were obtained through the head/brain without intravenous contrast. Radiation dose: Total exam DLP = 859.59 mGy-cm. This CT exam was performed using one or more of the following dose reduction techniques: Automated exposure control, adjustment of the mA and/or kV according to patient size, and/or use of iterative reconstruction technique. FINDINGS: HEMORRHAGE: No acute parenchymal, subarachnoid or extra-axial hemorrhage. BRAIN: Suspect minor chronic periventricular white matter ischemic changes. There may also be a few tiny scattered chronic bilateral basal nuclei lacunar type infarcts. Mild central volume loss evidenced by slight disproportionate enlargement the ventricles compared sulci VENTRICLES: No obstructive hydrocephalus. CALVARIUM: Unremarkable. PARANASAL SINUSES: Unremarkable as visualized. No significant inflammatory changes. MASTOID AIR CELLS: Unremarkable as visualized. No inflammatory changes. OTHER FINDINGS: None. IMPRESSION: No acute intracranial hemorrhage. Suspect minimal chronic periventricular white matter ischemic changes with a few chronic bilateral basal nuclei lacunar type infarcts. Mild central volume loss.
[2018-12-23] MEDS: Levothyroxine 88 MCG TAB PO SCH (05:45)
[2018-12-23] MEDS: Multivitamin With Minerals Tab PO SCH (08:23)
[2018-12-23] MEDS: Cholecalciferol 400 Intl Units Tab PO SCH (08:23)
--- NOTE | 2018-12-23 09:48 | PCM.PYCHPN ---
Psychiatric Progress Note - Psychiatric Progress Note Patient seen today, length of contact: Pt evaluated, case discussed w/ team, chart reviewed Patient Chief Complaint: pt has remained si.gnificantly depressed and withdrawn and with anhedonia and decreased energy level.pt hax remained very depressed with on and off negative thoughts .pt is tolrating cymbalta and clozaril well but has not improved and is looking forward to ECT treatment.pt denies suicidal thoughts at this time. Medication Change: No Medical Record Reviewed: Yes Mental Status Examination - Cognitive Function Orientation: Person, Place, Situation, Time Memory: Intact Attention: WNL Concentration: WNL Fund of Knowledge: WNL - Mood Mood: Depressed - Affect Affect: Constricted, Depressed - Formal Thought Process Formal Thought Process: Circumstantial - Suicidal Ideation Suicidal Ideation: Yes - Homicidal Ideation Homicidal Ideation: No Goal/Treatment Plan - Goal/Treatment Plan Need for Continued Stay: Remain at risks for inpatient hospitalization, Severe depression anxiety, Discharge may exacerbated symptoms Progress Toward Problem(s) and Goals/Treatment Plan: Continue to stabilize with clozaril and cymbalta and engage pt in therapy. will consider ECT if does not improve with meds .
[2018-12-24] MEDS: Levothyroxine 88 MCG TAB PO SCH (06:10)
[2018-12-24] MEDS: Multivitamin With Minerals Tab PO SCH (08:22)
[2018-12-24] MEDS: Cholecalciferol 400 Intl Units Tab PO SCH (08:23)
--- NOTE | 2018-12-24 10:52 | PCM.PYCHPN ---
Psychiatric Progress Note - Psychiatric Progress Note Patient seen today, length of contact: Pt evaluated, case discussed w/ team, chart reviewed Patient Chief Complaint: I still feel down Problems Identified/Issues Discussed: pt presenting with depressed mood and affect, continues to report poor motivation and low energy, feeling of hopelessness, denied active thoughts of self harm ON THE UNIT , denied command hallucinations DSM 5 Symptoms Update: major depression OCD Medication Change: No Medical Record Reviewed: Yes Mental Status Examination - Cognitive Function Orientation: Person, Place, Situation, Time Memory: Intact Attention: WNL Concentration: WNL Fund of Knowledge: WNL - Mood Mood: Depressed - Affect Affect: Constricted, Depressed - Speech Speech: Soft - Formal Thought Process Formal Thought Process: Circumstantial - Suicidal Ideation Suicidal Ideation: Yes - Homicidal Ideation Homicidal Ideation: No Goal/Treatment Plan - Goal/Treatment Plan Need for Continued Stay: Remain at risks for inpatient hospitalization, Severe depression anxiety, Discharge may exacerbated symptoms Progress Toward Problem(s) and Goals/Treatment Plan: continue with clozaril and cymbal;ta medical clearance for ECT
[2018-12-25] MEDS: Levothyroxine 88 MCG TAB PO SCH (05:48)
--- NOTE | 2018-12-25 08:54 | CP.PCM.CON ---
History of Present Illness - History of Present Illness History of Present Illness: This 58-year-old man was hospitalized with worsening psychosis. He has had ECT in the past. He gives history of having dyslipidemia and hypothyroidism for which she has been taking medications regularly. He has never been a smoker or diabetic. He can walk 10-12 blocks without any difficulty. He has never experienced any chest pain or sudden shortness of breath or pedal edema. During a recent hospitalization for psychosis the patient complained of palpitations and was briefly observed on a telemetry floor by his account. Cardiac tests were normal. He never underwent a stress test. There is no significant past or family history of cardiac or vascular last. Physical examination shows a middle aged man alert awake and coherent. Able to lie virtually flat and breathe comfortably at 14 breaths per minute. He had a he art rate of 74 bpm regular and a blood pressure of 134/74 mmHg. His jugular venous pressure was not elevated and there was no edema over his lower extremity. His pedal pulses were well felt. There were no carotid bruits. The apex was in the fifth space in the first and second heart sounds were normal. There was no murmur or gallop. There were no rales. His abdomen was soft liver and spleen are not palpable. His electrocardiogram showed sinus rhythm with a normal EKG pattern. (QTC 425 ms) This was compared to his cardiogram from couple of years back. His CBC and metabolic profile were reviewed and both were satisfactory. TSH was normal. Lipid profile was satisfactory. Impression psychosis. Hypothyroidism corrected with replacement therapy. The patient is stable from medical point of view to proceed with the planned ECT therapy. Past Patient History - Past Medical History & Family History Past Medical History?: Yes - Past Social History Alcohol: None - CARDIAC Hx Hypercholesterolemia: Yes Hx Hypertension: No - PULMONARY Hx Tuberculosis: No - NEUROLOGICAL Hx Seizures: No - HEENT Hx HEENT Problems: No - RENAL Hx Chronic Kidney Disease: No - ENDOCRINE/METABOLIC Hx Hypothyroidism: Yes - HEMATOLOGICAL/ONCOLOGICAL Hx Anemia: Yes Hx Human Immunodeficiency Virus (HIV): No - INTEGUMENTARY Hx Dermatological Problems: No - MUSCULOSKELETAL/RHEUMATOLOGICAL Hx Fractures: Yes (LEFT HAND) - GASTROINTESTINAL Hx Gastritis: Yes - GENITOURINARY/GYNECOLOGICAL Hx Sexually Transmitted Disorders: No - PSYCHIATRIC Hx Anxiety: Yes Hx Depression: Yes Hx Post Traumatic Stress Disorder: Yes - SURGICAL HISTORY Hx Surgeries: No - ANESTHESIA Hx Anesthesia: No Hx Anesthesia Reactions: No Hx Malignant Hyperthermia: No Meds Allergies/Adverse Reactions: Allergies Allergy/AdvReac Type Severity Reaction Status Date / Time Penicillins Allergy RASH Verified 04/25/18 12:10 - Medications Medications: Current Medications Acetaminophen (Tylenol 325mg Tab) 650 mg PO Q4 PRN PRN Reason: Pain (4-7) Al Hydrox/Mg Hydrox/Simethicone (Maalox Plus 30 Ml) 30 ml PO Q4 PRN PRN Reason: Dyspepsia Atorvastatin Calcium (Lipitor) 40 mg PO HS [facility] Last Admin: 12/24/18 21:06 Dose: 40 mg Bisacodyl (Dulcolax) 5 mg PO DAILY PRN PRN Reason: Constipation Clonazepam (Klonopin) 0.25 mg PO BID [facility] Last Admin: 12/24/18 17:25 Dose: 0.25 mg Diphenhydramine HCl (Benadryl) 50 mg PO Q6 PRN PRN Reason: Extrapyramidal Symptoms Docusate Sodium (Colace) 100 mg PO BID [facility] Last Admin: 12/24/18 17:21 Dose: 100 mg Duloxetine HCl (Cymbalta) 30 mg PO BID [facility] Last Admin: 12/24/18 17:21 Dose: 30 mg Lactulose (Enulose) 20 gm PO DAILY PRN PRN Reason: Constipation Last Admin: 12/12/18 12:24 Dose: 20 gm Levothyroxine Sodium (Synthroid) 88 mcg PO DAILY@0630 [facility] Last Admin: 12/25/18 05:48 Dose: 88 mcg Lorazepam (Ativan) 2 mg IM Q6 PRN PRN Reason: Anxiety/Agitation,Unable PO Lorazepam (Ativan) 1 mg PO Q6 PRN PRN Reason: Anxiety/Agitation Last Admin: 12/21/18 10:42 Dose: 1 mg Magnesium Hydroxide (Milk Of Magnesia) 30 ml PO HS PRN PRN Reason: Constipation Multivitamins/Minerals (Therapeutic-M Tab) 1 tab PO DAILY [facility] Last Admin: 12/24/18 08:22 Dose: 1 tab Sennosides (Senokot Tab) 8.6 mg PO BID [facility] Last Admin: 12/24/18 17:22 Dose: 8.6 mg Vitamin D (Vitamin D 400 Intl Units Tab) 400 intlu PO DAILY [facility] Last Admin: 12/24/18 08:23 Dose: 400 intlu Results - Vital Signs Recent Vital Signs: Last Vital Signs Temp 97.5 F L 12/25/18 06:00 Pulse 64 12/25/18 06:00 Resp 20 12/25/18 06:00 BP 110/71 12/25/18 06:00 Pulse Ox 99 12/09/18 16:47 - Labs Result Diagrams: 12/07/18 18:37 12/10/18 07:10
[2018-12-25] MEDS: Cholecalciferol 400 Intl Units Tab PO SCH (08:56)
[2018-12-25] MEDS: Multivitamin With Minerals Tab PO SCH (08:57)
--- NOTE | 2018-12-25 08:58 | PCM.PYCHPN ---
Psychiatric Progress Note - Psychiatric Progress Note Patient seen today, length of contact: Pt evaluated, case discussed w/ team, chart reviewed Patient Chief Complaint: Depression Problems Identified/Issues Discussed: No new events over the weekend. Patient continues to report severe depression, w/ intermittent feelings of hopelessness and intermittent suicidal ideations to [place] front [place]. He denies acute suicidal ideation/plan/intent while in the hospital. He is able to contract for safety at this time. No adverse effects to medications reported. Patient is agreeable to treatment with ECT. Medication Change: No Medical Record Reviewed: Yes Consults ordered or reviewed: Medicine consult Mental Status Examination - Cognitive Function Orientation: Person, Place, Situation, Time Memory: Intact Attention: WNL Concentration: WNL Fund of Knowledge: WNL Decription of patient's judgement and insights: Fair I/J - Mood Mood: Depressed - Affect Affect: Constricted, Depressed - Speech Speech: Soft - Formal Thought Process Formal Thought Process: Circumstantial Psychotic Thoughts and Behaviors: No AH/VH/paranoia/delusions - Suicidal Ideation Suicidal Ideation: Yes - Homicidal Ideation Homicidal Ideation: No Goal/Treatment Plan - Goal/Treatment Plan Need for Continued Stay: Remain at risks for inpatient hospitalization, Severe depression anxiety, Discharge may exacerbated symptoms Progress Toward Problem(s) and Goals/Treatment Plan: Schizoaffective Disorder vs MDD w/ psychotic features; PTSD -Continue Cymbalta -Continue Clozapine -Continue Klonopin, dose tapered -Medicine consult -Individual and group therapy -Psychoeducation -Medical clearance for ECT -Disposition planning
[2018-12-25 09:06] LABS: BASO % 0.5 % (0.0-2.0); EOS % 0.8 % (0.0-4.0); HEMOGLOBIN 14.1 g/dL (12.0-18.0); LYMPH # 1.4 K/uL (1.0-4.3); MEAN CELL VOLUME 89.7 fl (80.0-94.0); MEAN CORPUSCULAR HEMOGLOBIN 29.2 pg (27.0-31.0); MEAN CORPUSCULAR HGB CONC 32.6 g/dL (33.0-37.0); MEAN PLATELET VOLUME 8.8 fl (7.2-11.7); MONO # 0.7 K/uL (0.0-0.8); MONO % 13.6 % (0.0-10.0); NEUT # 3.1 K/uL (1.8-7.0); NEUT % 58.1 % (50.0-75.0); NRBC % 0.1 % (0.0-0.0); RBC 4.82 Mil/uL (4.40-5.90); RED CELL DISTRIBUTION WIDTH 15.1 % (11.5-14.5); WHITE BLOOD COUNT 5.3 K/uL (4.8-10.8)
[2018-12-25 09:45] LABS: ALB/GLOB RATIO 1.4 (1.0-2.1); ALT/SGPT 26 U/L (21-72); AST/SGOT 19 U/L (17-59); BLOOD UREA NITROGEN 15 mg/dl (9-20); CALCIUM 9.2 mg/dL (8.4-10.2); GFR NON-AFRICAN AMERICAN > 60
[2018-12-26] MEDS: Levothyroxine 88 MCG TAB PO SCH (05:50)
[2018-12-26] MEDS: Cholecalciferol 400 Intl Units Tab PO SCH (08:08)
[2018-12-26] MEDS: Multivitamin With Minerals Tab PO SCH (08:08)
--- NOTE | 2018-12-26 10:04 | PCM.PYCHPN ---
Psychiatric Progress Note - Psychiatric Progress Note Patient seen today, length of contact: Pt evaluated, case discussed w/ team, chart reviewed Patient Chief Complaint: Depression Problems Identified/Issues Discussed: Patient continues to report severe depression and intermittent suicidal ideations to jump [place] front of a subway. He denies acute suicidal ideation/plan/intent while in the hospital. He is able to contract for safety at this time. No adverse effects to medications reported. Patient is agreeable to treatment with ECT. Medication Change: No Medical Record Reviewed: Yes Consults ordered or reviewed: Medicine consult Mental Status Examination - Cognitive Function Orientation: Person, Place, Situation, Time Memory: Intact Attention: WNL Concentration: WNL Fund of Knowledge: WNL Decription of patient's judgement and insights: Fair I/J - Mood Mood: Depressed - Affect Affect: Constricted, Depressed - Speech Speech: Soft - Formal Thought Process Formal Thought Process: Circumstantial Psychotic Thoughts and Behaviors: No AH/VH/paranoia/delusions - Suicidal Ideation Suicidal Ideation: Yes - Homicidal Ideation Homicidal Ideation: No Goal/Treatment Plan - Goal/Treatment Plan Need for Continued Stay: Remain at risks for inpatient hospitalization, Severe depression anxiety, Discharge may exacerbated symptoms Progress Toward Problem(s) and Goals/Treatment Plan: Schizoaffective Disorder vs MDD w/ psychotic features; PTSD -Continue Cymbalta -Continue Clozapine -Hold Klonopin -Medicine consult -Individual and group therapy -Psychoeducation -Medical clearance for ECT completed -Disposition planning
--- NOTE | 2018-12-26 20:11 | CP.PCM.CON ---
History of Present Illness - History of Present Illness History of Present Illness: PRE ECT evaluation consult pt is a 58 years old male with previous psychiatric diagnosis of Major depression, Post traumatic stress disorder and obsessive compulsive disorder , admitted due to increased depression and suicidal ideation with plan [place] in context of recent medication changes . pt has been discharged from [facility] ten days prior to the current admission , after being placed on clozaril due to continuous suicidal ideation, pt currntly resides in a fpc, reported low energy, poor motivation , increased sleep up to 12 hours a day, poor concentration, subjective recent memory deficits ,feeling worthless and helpless, difficulties in Maintaining ADL'S ,paranoid delusions and ideas of reference,obsessive and comulsive behaviour with repitition of certain rituals, Past psychiatric history/ pt reported initial treatment for depression was at age 24, since then patient h as extensive history of psychiatric hospitalizations , pt had multiple suicidal attempts including trying to hang himself seven years ago resulting in 8 months admission at [facility] The record of previous treatment trials was reviewed with patient and included, SSRI'S / prozac and celexa SNRI'S cymbalta and effexor Wellbutrin Tricyclic/ clomipramine Cognitive behavioral therapy pt reported that despite of adequate duration and dose , only partial response was obtained to different classes of antidepressants with continuous suicidal ideations patient reported previous ECT treatment at [facility] in 2010, pt received about 7 treatments, pt indicated partial response, yet has not continued with treatment due to instability of his living condition at that time , pt denied any side effects associated with his previous ECT treatment, including any memory deficits, also denied any side effects of anaesthesia Review of Systems - Constitutional Constitutional: As Per HPI - EENT Eyes: As Per HPI Ears: As Per HPI Nose/Mouth/Throat: As Per HPI - Cardiovascular Cardiovascular: As Per HPI - Gastrointestinal Gastrointestinal: As Per HPI - Genitourinary Genitourinary: As Per HPI - Reproductive: Male Reproductive:Male: As Per HPI - Integumentary Integumentary: As Per HPI - Neurological Neurological: As Per HPI - Psychiatric Additional comments: pt on evaluation cooperative, good eye contact, speech soft and slow, mood depressed, affect depressed and sad , thought form coherent , reported having paranoid delusions feeling that somebody is after him, reported continuos suicidal ideation, denied homicidal ideation, alert awake ox3 fair insight and judgment - Endocrine Endocrine: As Per HPI Past Patient History - Past Medical History & Family History Past Medical History?: Yes - Past Social History Alcohol: None - CARDIAC Hx Hypercholesterolemia: Yes Hx Hypertension: No - PULMONARY Hx Tuberculosis: No - NEUROLOGICAL Hx Seizures: No - HEENT Hx HEENT Problems: No - RENAL Hx Chronic Kidney Disease: No - ENDOCRINE/METABOLIC Hx Hypothyroidism: Yes - HEMATOLOGICAL/ONCOLOGICAL Hx Anemia: Yes Hx Human Immunodeficiency Virus (HIV): No - INTEGUMENTARY Hx Dermatological Problems: No - MUSCULOSKELETAL/RHEUMATOLOGICAL Hx Fractures: Yes (LEFT HAND) - GASTROINTESTINAL Hx Gastritis: Yes - GENITOURINARY/GYNECOLOGICAL Hx Sexually Transmitted Disorders: No - PSYCHIATRIC Hx Anxiety: Yes Hx Depression: Yes Hx Post Traumatic Stress Disorder: Yes - SURGICAL HISTORY Hx Surgeries: No - ANESTHESIA Hx Anesthesia: No Hx Anesthesia Reactions: No Hx Malignant Hyperthermia: No Meds Allergies/Adverse Reactions: Allergies Allergy/AdvReac Type Severity Reaction Status Date / Time Penicillins Allergy RASH Verified 04/25/18 12:10 - Medications Medications: Current Medications Acetaminophen (Tylenol 325mg Tab) 650 mg PO Q4 PRN PRN Reason: Pain (4-7) Al Hydrox/Mg Hydrox/Simethicone (Maalox Plus 30 Ml) 30 ml PO Q4 PRN PRN Reason: Dyspepsia Atorvastatin Calcium (Lipitor) 40 mg PO [facility] Last Admin: 12/25/18 21:26 Dose: 40 mg Bisacodyl (Dulcolax) 5 mg PO DAILY PRN PRN Reason: Constipation Clonazepam (Klonopin) 0.25 mg PO BID [facility] Last Admin: 12/25/18 08:56 Dose: 0.25 mg Clozapine (Clozaril) 300 mg PO [facility] Last Admin: 12/25/18 21:26 Dose: 300 mg Diphenhydramine HCl (Benadryl) 50 mg PO Q6 PRN PRN Reason: Extrapyramidal Symptoms Docusate Sodium (Colace) 100 mg PO BID [facility] Last Admin: 12/25/18 17:21 Dose: 100 mg Duloxetine HCl (Cymbalta) 30 mg PO BID [facility] Last Admin: 12/25/18 17:21 Dose: 30 mg Lactulose (Enulose) 20 gm PO DAILY PRN PRN Reason: Constipation Last Admin: 12/12/18 12:24 Dose: 20 gm Levothyroxine Sodium (Synthroid) 88 mcg PO DAILY@0630 [facility] Last Admin: 12/25/18 05:48 Dose: 88 mcg Lorazepam (Ativan) 2 mg IM Q6 PRN PRN Reason: Anxiety/Agitation,Unable PO Lorazepam (Ativan) 1 mg PO Q6 PRN PRN Reason: Anxiety/Agitation Last Admin: 12/21/18 10:42 Dose: 1 mg Magnesium Hydroxide (Milk Of Magnesia) 30 ml PO HS PRN PRN Reason: Constipation Multivitamins/Minerals (Therapeutic-M Tab) 1 tab PO DAILY [facility] Last Admin: 12/25/18 08:57 Dose: 1 tab Sennosides (Senokot Tab) 8.6 mg PO BID [facility] Last Admin: 12/25/18 17:21 Dose: 8.6 mg Vitamin D (Vitamin D 400 Intl Units Tab) 400 intlu PO DAILY [facility] Last Admin: 12/25/18 08:56 Dose: 400 intlu Physical Exam - Psychiatric Exam Additional comments: pt on evaluation calm cooperative, good eye contact, speech soft and slow , mood depressed , affect depressed constricted, thought form circumstantial, reported paranoid delusions towards residents of fpc with ideas of reference , reported suicidal ideation with plan to jump infront of a train, denied homicidal ideation, denied perceptual disturbances alert awake oriented to person place and time Results - Vital Signs Recent Vital Signs: Last Vital Signs Temp 98.1 F 12/25/18 15:45 Pulse 67 12/25/18 15:45 Resp 20 12/25/18 15:45 BP 113/62 12/25/18 15:45 Pulse Ox 99 12/09/18 16:47 - Labs Result Diagrams: 12/25/18 08:30 12/25/18 08:30 Labs: Laboratory Results - last 24 hr 12/25/18 12/25/18 08:30 08:30 WBC 5.3 RBC 4.82 Hgb 14.1 Hct 43.3 MCV 89.7 D MCH 29.2 MCHC 32.6 L RDW 15.1 H Plt Count 293 MPV 8.8 Neut % (Auto) 58.1 Lymph % (Auto) 27.0 [place] % (Auto) 13.6 H Eos % (Auto) 0.8 Baso % (Auto) 0.5 Neut # (Auto) 3.1 Lymph # (Auto) 1.4 [place] # (Auto) 0.7 Eos # (Auto) 0.0 Baso # (Auto) 0.0 Sodium 138 Potassium 3.6 Chloride 102 Carbon Dioxide 27 Anion Gap 13 BUN 15 Creatinine 1.1 Est GFR ( Amer) > 60 Est GFR (Non-Af Amer) > 60 Random Glucose 174 H Calcium 9.2 Total Bilirubin 0.3 AST 19 ALT 26 Alkaline Phosphatase 78 Total Protein 6.9 Albumin 4.0 Globulin 2.9 Albumin/Globulin Ratio 1.4 Assessment & Plan - Assessment and Plan (Free Text) Assessment: Major depression recurrent severe with psychotic features obsessive compulsive disorder post traumatic stress disorder Plan: pt has been started on clozaril and cymbalta at a dose of 60mg for past ten days with lack of optimal response, pt continues to report low energy , poor motivation , increased sleep and suicidal ideation discussed with pt starting ECT treatment as he currently is presenting with treatment resistant depression, alternative treatments were explained to patient including augmenting current treatment with SSRI, or starting MAOI , pt declined being started on new additional class of medication due to previous partial or lack of response A description of ECT treatment was provided to patient , and supplementary material including educational booklet and video presentation were provided Discussed with patient different modes of electrode placement for procedure/ tomer ateral versus unilateral, with education about risks and benefits of each, patient requested to have bilateral electrode placement for hope of faster response Risks of ECT including , confusion, acute and persistent memory impairment cardiopulmonary risks , headaches and musculoskeletal pain were explained to the patient Discussed with patient needed medication modification including downtitrating and discontinuing klonopin Pt made aware that there is no guarantee that ECT will be effective Following tests were done in preparation for medical clearance for ECT CBC, comprehensive metabolic pannel, electrocardiogram head CT and skeletal x rays were performed results reviewed and consult for medical clearance for ECT obtained anaesthesia clearance consult initiated consent for procedure obtained from patient on 12/26/18 Alicia depression inventory scale completed on 12/26/18 score 27 Mini Mental status exam score on 12/26/18
--- NOTE | 2018-12-26 20:37 | PCM.BM ---
Treatment Plan Problems - Problems identified on initial assessmt Suicidal Ideation Date Initiated: 12/08/18 Time Initiated: 04:23 Assessment reference: NA Status: Active Priority: 1 Self Harm Date Initiated: 12/08/18 Time Initiated: 04:24 Assessment reference: NA Status: Active Priority: 2 Altered Sleep Date Initiated: 12/08/18 Time Initiated: 04:25 Assessment reference: NA Status: Active Priority: 3 Hopelessness/Helplessness Date Initiated: 12/08/18 Time Initiated: 04:26 Assessment reference: NA Status: Active Priority: 4 Feelings of Worthlessness Date Initiated: 12/08/18 Time Initiated: 04:26 Assessment reference: NA Status: Active Priority: 5 Knowledge Deficit of ECT Date Initiated: 12/26/18 Time Initiated: 20:36 Assessment reference: NA Status: Active Anxiety r/t ECT therapy Date Initiated: 12/26/18 Time Initiated: 20:36 Assessment reference: NA Status: Active Potential for Injury Post ECT Date Initiated: 12/26/18 Time Initiated: 20:37 Assessment reference: NA Status: Active Altered Memory and Orientation Date Initiated: 12/26/18 Time Initiated: 20:37 Assessment reference: NA Status: Active Treatment assets and liabiliti Patient Assests: adapts well, cooperative, educated, insightful, motivated, ADL independent, negotiates basic needs, good past tx response Patient Liabilities: financial problems, poor support system - Milieu Protocol Maintain good personal hygiene: daily Encourage regular showers, daily Remind patient to perform daily oral care, daily Assist patient to perform ADL's Conduct patient checks and document Observation sheet: Q15 minutes Maintain personal safety: every shift Educate patient to report safety concerns to staff, every shift Monitor environment for contraband/sharps Medication safety: Monitor for expected outcome, potential side effects: every shift, Assess barriers to learning: every shift, Assess readiness for medication education: every shift Milieu Narrative: Schizoaffective Disorder vs MDD w/ psychotic features; PTSD -Continue Cymbalta -Continue Clozapine -Hold Klonopin -Medicine consult -Individual and group therapy -Psychoeducation -Medical clearance for ECT completed -Disposition planning Family Contact Family involvement: Famliy/SO not involved - Outside Agency SERV Residential Care involvment: Information-sharing Agency contact name: JESSICA Ferrer Agency contact number: [phone] [facility] Care involvment: Information-sharing Agency contact name: Dr. Arrieta, Ph.D Agency contact number: [phone] - Goals for Treatment Patient goals for treatment: Pt will imporve overall mood. Pt will be free of suicide thoughts. Pt will develop strategies for thought distraction when ruminating ont he past. Pt will develop strategies to reduce symptoms of anxiety. Discharge/Continuing Care - Education Needs Education Needs: Patient Medication, Patient Diagnosis/Disease Process, Patient Coping Skills, Patient Community resources, Patient Activities of Daily Living, Patient Uses of Medical Equipment, Patient Health Practices/Safety, Patient Personal Hygiene/Grooming, Patient Aftercare Safety Plan - Discharge Discharge Criteria: Tolerates medication w/o severe side effects, Free of Suicidal thoughts, Normal sleep pattern, Ability to care for self, Reduction of target symptoms, Other (Decreased depression and anxiety) Discharge to:: [facility]pc ([facility]) - Additional Comments 12/08/18 12:40 Pt seen and discussed in team meeting. Reason for hospitalization reviewed and discussed. Pt reported he was referred to the ED by his [facility] telephonic nurse case manager, Tre Burk secondary to increased fatigue and difficulty breathing. Pt repor fran that he was started on Clozaril and is uncertain if it's causing him to feel increasingly fatigue. Pt reported that while in the emergency room he felt hopeless. Pt stated 'I have no hope to hold on to." Pt reported that once he returns to his apartment he feels horrible and hopeless. Pt reported feeling increasingly depressed and suicide ideation with plan [place] front [place] [employer]. Pt reported he last attempted end of September/beginning of October by jumping in front of the train; however, the train stopped and he was pulled out of the tracks and hospitalized at [facility]. Pt reported that he feels depressed and anxious. Pt reported that he is scheduled to start PHP at [facility] on 12/12/2018. [employer] informed pt that a telephone call will be made to re- schedule appointment. Pt verbalized agreement and understanding of same. Pt reported that his only support system is telephonic nurse case manager at [facility], Tania Burk. Pt signed consent for handbook writer to speak to telephonic nurse case manager. Pt's medical and social issues reviewed and discussed. Pt's medications reviewed by Dr. Samuels and discussed with pt. Pt verbalized agreement to medication recommendations and adjustment. Tx plan reviewed and discussed with pt. Pt agreeable to medication change per clinical presentation. ECT discussed with pt and verbalized interest in treatment. Dr. Samuels informed pt that another psychiatrist, Dr. Juan MD will be speaking to him to review ECT treatment. Pt verbalized agreement. SW to continue to follow case. - Treatment Team Participation Patient/Family/SO Statement: Schizoaffective Disorder vs MDD w/ psychotic features; PTSD -Continue Cymbalta -Continue Clozapine -Hold Klonopin -Medicine consult -Individual and group therapy -Psychoeducation -Medical clearance for ECT completed -Disposition planning Discussed with Family/SO: No Was Patient/Family/SO present at Treatment Team Meeting: Yes
[2018-12-27] MEDS ORDERED: Propofol 10 mg/ml Inj (20 ML) ONE (08:20)
[2018-12-27] MEDS ORDERED: Succinylcholine Chloride 20 mg/ml Syr (5 ml) IV ONE (08:20)
[2018-12-27] MEDS ORDERED: Atropine 0.4 mg/ml Inj (1 mL) ONE ×2 (08:28)
[2018-12-27] MEDS ORDERED: Lactated Ringer's 500 ML IV SCH (08:45)
[2018-12-27] MEDS: Multivitamin With Minerals Tab PO SCH (10:05)
[2018-12-27] MEDS: Levothyroxine 88 MCG TAB PO SCH (10:05)
[2018-12-27] MEDS: Cholecalciferol 400 Intl Units Tab PO SCH (10:06)
--- NOTE | 2018-12-27 11:24 | PCM.PYCHPN ---
Psychiatric Progress Note - Psychiatric Progress Note Patient seen today, length of contact: Pt evaluated, case discussed w/ team, chart reviewed Patient Chief Complaint: Depression Problems Identified/Issues Discussed: Patient had his first ECT procedure this morning. Patient reports that continues to have chronic depression, but he is hopeful that ECT may help him. He denies acute suicidal ideation/plan/intent while in the hospital. He is able to contract for safety at this time. No adverse effects to medications reported. Medication Change: No Medical Record Reviewed: Yes Consults ordered or reviewed: Medicine consult Mental Status Examination - Cognitive Function Orientation: Person, Place, Situation, Time Memory: Intact Attention: WNL Concentration: WNL Fund of Knowledge: WNL Decription of patient's judgement and insights: Fair I/J - Mood Mood: Depressed - Affect Affect: Constricted, Depressed - Speech Speech: Soft - Formal Thought Process Formal Thought Process: Circumstantial Psychotic Thoughts and Behaviors: No AH/VH/paranoia/delusions - Suicidal Ideation Suicidal Ideation: No - Homicidal Ideation Homicidal Ideation: No Goal/Treatment Plan - Goal/Treatment Plan Need for Continued Stay: Remain at risks for inpatient hospitalization, Severe d epression anxiety, Discharge may exacerbated symptoms Progress Toward Problem(s) and Goals/Treatment Plan: Schizoaffective Disorder vs MDD w/ psychotic features -Continue Cymbalta -Continue Clozapine -Hold Klonopin -Medicine consult -Individual and group therapy -Psychoeducation -Medical clearance for ECT completed -First ECT procedure completed today -Disposition planning
--- NOTE | 2018-12-27 22:22 | PCM.ECT ---
Electroconvulsive Therapy Note - Procedure: ECT Preprocedure Diagnosis: MAJOR DEPRESSV DISORDER, RECURRENT, SEVERE W PSYCH SYMPTOMS Court Ordered: No Current treatment number: 1 (titration) Total number of treatment: 12 - Number of ECT this course Bilateral: 1 (bilateral) - Assessment/Plan Assessment: pt received EEG treatment,, number one treatment titration / pt treatment data/ pulse width 0.5 msec frequency 25 hz duration 7.5 sec current 800 mA ENERGY/ 26.4a anaesthesia / succinyl choline 50 propofol 100 SEIZURE LENGTH 21 SEC VITALS BP 123/78 HR 98 pulse oxy 100% pt tolerated treatment well with no complications Medication Plan: propofol Comment: pt receive propofol 100 succinyl choline 50 - Treatment Parameters Setting: Bilateral Charge amp (in %): 150 (mc) Frequency (in Hz): 25 Peripheral seizure duration (in sec): 21 (sec)
--- NOTE | 2018-12-28 01:16 | CP.PCM.PN ---
Subjective - Date & Time of Evaluation Date of Evaluation: 12/27/18 Time of Evaluation: 10:05 - Subjective Subjective: Pt seen and assessed at bedside. Alert and awake with periods of drowsiness, S/P ECT. Reports mild headache after procedure. Plan of care discussed with staff. Review of Systems - Review of Systems Review of Systems: reviewed and no additional remarkable complaints. Objective - Vital Signs/Intake and Output Vital Signs (last 24 hours): Temp Pulse Resp BP Pulse Ox 98.2 F 83 18 96/77 L 20 L 12/27/18 15:47 12/27/18 15:47 12/27/18 15:47 12/27/18 15:47 12/27/18 10:30 Intake and Output: 12/27/18 12/28/18 18:59 06:59 Intake Total 100 Balance 100 - Medications Medications: Current Medications Acetaminophen (Tylenol 325mg Tab) 650 mg PO Q4 PRN PRN Reason: Pain (4-7) Al Hydrox/Mg Hydrox/Simethicone (Maalox Plus 30 Ml) 30 ml PO Q4 PRN PRN Reason: Dyspepsia Atorvastatin Calcium (Lipitor) 40 mg PO HS [facility] Last Admin: 12/27/18 21:02 Dose: 40 mg Bisacodyl (Dulcolax) 5 mg PO DAILY PRN PRN Reason: Constipation Clonazepam (Klonopin) 0.25 mg PO BID [facility] Last Admin: 12/25/18 08:56 Dose: 0.25 mg Clozapine (Clozaril) 300 mg PO [facility] Last Admin: 12/27/18 21:02 Dose: 300 mg Diphenhydramine HCl (Benadryl) 50 mg PO Q6 PRN PRN Reason: Extrapyramidal Symptoms Docusate Sodium (Colace) 100 mg PO BID [facility] Last Admin: 12/27/18 16:56 Dose: 100 mg Duloxetine HCl (Cymbalta) 30 mg PO BID [facility] Last Admin: 12/27/18 16:57 Dose: 30 mg Lactated Ringer's (Lactated Ringer's 500ml) 500 mls @ 75 mls/hr IV .Q6H40M [facility] Last Admin: 12/27/18 08:40 Dose: 100 mls Lactulose (Enulose) 20 gm PO DAILY PRN PRN Reason: Constipation Last Admin: 12/12/18 12:24 Dose: 20 gm Levothyroxine Sodium (Synthroid) 88 mcg PO DAILY@0630 [facility] Last Admin: 12/27/18 10:05 Dose: 88 mcg Magnesium Hydroxide (Milk Of Magnesia) 30 ml PO HS PRN PRN Reason: Constipation Multivitamins/Minerals (Therapeutic-M Tab) 1 tab PO DAILY [facility] Last Admin: 12/27/18 10:05 Dose: 1 tab Sennosides (Senokot Tab) 8.6 mg PO BID [facility] Last Admin: 12/27/18 16:57 Dose: 8.6 mg Vitamin D (Vitamin D 400 Intl Units Tab) 400 intlu PO DAILY [facility] Last Admin: 12/27/18 10:06 Dose: 400 intlu - Labs Labs: 12/25/18 08:30 12/25/18 08:30 PT 12.3 Seconds (9.8-13.1) 12/07/18 18:37 INR 1.1 12/07/18 18:37 APTT 32.2 Seconds (25.6-37.1) 12/07/18 18:37 - Constitutional Appears: Well - Head Exam Head Exam: NORMOCEPHALIC - Eye Exam Eye Exam: PERRL Pupil Exam: PERRL - ENT Exam ENT Exam: Mucous Membranes Moist - Neck Exam Neck Exam: Full ROM - Respiratory Exam Respiratory Exam: Clear to Ausculation Bilateral - Cardiovascular Exam Cardiovascular Exam: REGULAR RHYTHM, +S1, +S2 - GI/Abdominal Exam GI & Abdominal Exam: Soft, Normal Bowel Sounds - Extremities Exam Extremities Exam: Full ROM, Normal Capillary Refill - Back Exam Back Exam: Full ROM, NORMAL INSPECTION - Neurological Exam Neurological Exam: Alert, Awake Neuro motor strength exam: Left Upper Extremity: 5, Right Upper Extremity: 5, Left Lower Extremity: 5, Right Lower Extremity: 5 - Psychiatric Exam Psychiatric exam: Depressed - Skin Skin Exam: Dry Assessment and Plan (1) Depression Assessment & Plan: Assessment/Impression/Major Problems Now: 1.) S/P ECT for Major Depression -S/P ECT, reports headache but no memory loss. -Head CT reviewed; no acute pathology, no hemorrhage or new ischemia. Mild chronic ischemic changes noted, otherwise unremarkable. -Tylenol for pain. -At this time, the pt is medically stable, continue current tx. Status: Acute
[2018-12-28] MEDS: Levothyroxine 88 MCG TAB PO SCH (06:13)
[2018-12-28] MEDS: Multivitamin With Minerals Tab PO SCH (08:01)
[2018-12-28] MEDS: Cholecalciferol 400 Intl Units Tab PO SCH (08:01)
--- NOTE | 2018-12-28 10:05 | PCM.PYCHPN ---
Psychiatric Progress Note - Psychiatric Progress Note Patient seen today, length of contact: Pt evaluated, case discussed w/ team, chart reviewed Patient Chief Complaint: Depression Problems Identified/Issues Discussed: Patient continues to report severe, chronic depression, but is hopeful about ECT treatment. He denies acute adverse effects from ECT. He denies acute memory deficits. He is able to contract for safety in the hospital and denies acute suicidal ideation/plan/intent. Medication Change: No Medical Record Reviewed: Yes Consults ordered or reviewed: Medicine consult, ECT medical clearance, Psychiatry consult with Dr. Martinez for ECT treatment Mental Status Examination - Cognitive Function Orientation: Person, Place, Situation, Time Memory: Intact Attention: WNL Concentration: WNL Fund of Knowledge: WNL Decription of patient's judgement and insights: Fair I/J - Mood Mood: Depressed - Affect Affect: Constricted, Depressed - Speech Speech: Soft - Formal Thought Process Formal Thought Process: Circumstantial Psychotic Thoughts and Behaviors: No AH/VH/paranoia/delusions - Suicidal Ideation Suicidal Ideation: No - Homicidal Ideation Homicidal Ideation: No Goal/Treatment Plan - Goal/Treatment Plan Need for Continued Stay: Remain at risks for inpatient hospitalization, Severe depression anxiety, Discharge may exacerbated symptoms Progress Toward Problem(s) and Goals/Treatment Plan: MDD w/ psychotic features vs Schizoaffective Disorder -Continue Cymbalta -Continue Clozapine -Hold Klonopin -Medicine consult -Individual and group therapy -Psychoeducation -Medical clearance for ECT completed -Continue ECT as recommended by Dr. Martinez -Disposition planning
--- NOTE | 2018-12-29 08:03 | PCM.PYCHPN ---
Psychiatric Progress Note - Psychiatric Progress Note Patient seen today, length of contact: Pt evaluated, case discussed w/ team, chart reviewed Patient Chief Complaint: Depression Problems Identified/Issues Discussed: Patient A + O x 3, calm, cooperative. He is scheduled to receive his second ECT treatment this morning. He has no acute medical complaints. Patient continues to report severe, chronic depression. He is able to contract for safety in the hospital and denies acute suicidal ideation/plan/intent. Medication Change: No Medical Record Reviewed: Yes Consults ordered or reviewed: Medicine consult, ECT medical clearance, Psychiatry consult with Dr. Martinez for ECT treatment Mental Status Examination - Cognitive Function Orientation: Person, Place, Situation, Time Memory: Intact Attention: WNL Concentration: WNL Fund of Knowledge: WNL Decription of patient's judgement and insights: Fair I/J - Mood Mood: Depressed - Affect Affect: Constricted, Depressed - Speech Speech: Soft - Formal Thought Process Formal Thought Process: Circumstantial Psychotic Thoughts and Behaviors: No AH/VH/paranoia/delusions - Suicidal Ideation Suicidal Ideation: No - Homicidal Ideation Homicidal Ideation: No Goal/Treatment Plan - Goal/Treatment Plan Need for Continued Stay: Remain at risks for inpatient hospitalization, Severe depression anxiety, Discharge may exacerbated symptoms Progress Toward Problem(s) and Goals/Treatment Plan: MDD w/ psychotic features vs Schizoaffective Disorder -Continue Cymbalta -Continue Clozapine -Hold Klonopin -Medicine consult -Individual and group therapy -Psychoeducation -Medical clearance for ECT completed -Continue ECT as recommended by Dr. Martinez; second procedure scheduled for today -Disposition planning
[2018-12-29] MEDS ORDERED: Atropine 0.4 mg/ml Inj (1 mL) ONE (08:07)
[2018-12-29] MEDS ORDERED: Propofol 10 mg/ml Inj (20 ML) ONE (08:11)
[2018-12-29] MEDS ORDERED: Succinylcholine 200 mg/10 ml Inj IV ONE (08:15)
[2018-12-29] MEDS ORDERED: Lactated Ringer's 500 ML IV ONE (08:20)
[2018-12-29] MEDS ORDERED: Lactated Ringer's 1,000 ML IV SCH ×2 (09:00)
[2018-12-29] MEDS: Multivitamin With Minerals Tab PO SCH (12:08)
[2018-12-29] MEDS: Cholecalciferol 400 Intl Units Tab PO SCH (12:08)
[2018-12-29] MEDS: Levothyroxine 88 MCG TAB PO SCH (12:08)
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
[2018-12-30] MEDS: Levothyroxine 88 MCG TAB PO SCH (06:08)
[2018-12-30] MEDS: Cholecalciferol 400 Intl Units Tab PO SCH (08:36)
[2018-12-30] MEDS: Multivitamin With Minerals Tab PO SCH (08:36)
--- NOTE | 2018-12-30 09:55 | PCM.PYCHPN ---
Psychiatric Progress Note - Psychiatric Progress Note Patient seen today, length of contact: Pt evaluated, case discussed w/ team, chart reviewed Patient Chief Complaint: I feel a little better Problems Identified/Issues Discussed: pt evaluated seen in bed . reported little improvement in mood affect less constricted, reported having headache after ECT, but improved today, no changes on sleep or appetite, no active thoughts of self harm on the unit DSM 5 Symptoms Update: major depression Medication Change: No Medical Record Reviewed: Yes Mental Status Examination - Cognitive Function Orientation: Person, Place, Situation, Time Memory: Intact Attention: WNL Concentration: WNL Fund of Knowledge: WNL - Mood Mood: Depressed - Affect Affect: Constricted, Depressed - Speech Speech: Soft - Formal Thought Process Formal Thought Process: Circumstantial - Suicidal Ideation Suicidal Ideation: No - Homicidal Ideation Homicidal Ideation: No Goal/Treatment Plan - Goal/Treatment Plan Need for Continued Stay: Remain at risks for inpatient hospitalization, Severe depression anxiety, Discharge may exacerbated symptoms Progress Toward Problem(s) and Goals/Treatment Plan: continue with clozaril and cymbalta ECT 01/01/19
[2018-12-31] MEDS: Levothyroxine 88 MCG TAB PO SCH (05:43)
--- NOTE | 2018-12-31 07:58 | PCM.PYCHPN ---
Psychiatric Progress Note - Psychiatric Progress Note Patient seen today, length of contact: Pt evaluated, case discussed w/ team, chart reviewed Patient Chief Complaint: Depression Problems Identified/Issues Discussed: Patient continues to report severe, chronic depression. He is able to contract for safety in the hospital and denies acute suicidal ideation/plan/intent. Third ECT procedure scheduled for tomorrow. Medication Change: No Medical Record Reviewed: Yes Consults ordered or reviewed: Medicine consult, ECT medical clearance, Psychiatry consult with Dr. Martinez for ECT treatment Mental Status Examination - Cognitive Function Orientation: Person, Place, Situation, Time Memory: Intact Attention: WNL Concentration: WNL Fund of Knowledge: WNL Decription of patient's judgement and insights: Fair I/J - Mood Mood: Depressed - Affect Affect: Constricted, Depressed - Speech Speech: Soft - Formal Thought Process Formal Thought Process: Circumstantial Psychotic Thoughts and Behaviors: Denies AH/VH - Suicidal Ideation Suicidal Ideation: No - Homicidal Ideation Homicidal Ideation: No Goal/Treatment Plan - Goal/Treatment Plan Need for Continued Stay: Remain at risks for inpatient hospitalization, Severe depression anxiety, Discharge may exacerbated symptoms Progress Toward Problem(s) and Goals/Treatment Plan: MDD w/ psychotic features vs Schizoaffective Disorder -Continue Cymbalta -Continue Clozapine -Hold Klonopin -Medicine consult -Individual and group therapy -Psychoeducation -Medical clearance for ECT completed -Continue ECT as recommended by Dr. Martinez; third procedure scheduled for tomorrow -Disposition planning
[2018-12-31] MEDS: Multivitamin With Minerals Tab PO SCH (08:56)
[2018-12-31] MEDS: Cholecalciferol 400 Intl Units Tab PO SCH (08:57)
[2018-12-31] MEDS: Bisacodyl 5mg EC Tab PO PRN (08:57)
[2019-01-01] MEDS: Levothyroxine 88 MCG TAB PO SCH (05:36)
[2019-01-01] MEDS ORDERED: Propofol 10 mg/ml Inj (20 ML) ONE (08:26)
[2019-01-01] MEDS ORDERED: Lactated Ringer's 1,000 ML IV ONE ×3 (08:30→08:46)
--- NOTE | 2019-01-01 08:41 | PCM.PYCHPN ---
Psychiatric Progress Note - Psychiatric Progress Note Patient seen today, length of contact: Pt evaluated, case discussed w/ team, chart reviewed Patient Chief Complaint: Depression Problems Identified/Issues Discussed: Patient continues to report severe, chronic depression. He also reports worsening anxiety. He is able to contract for safety in the hospital and denies acute suicidal ideation/plan/intent. Third ECT procedure scheduled for this morning. Medication Change: No Medical Record Reviewed: Yes Consults ordered or reviewed: Medicine consult, ECT medical clearance, Psychiatry consult with Dr. Martinez for ECT treatment Mental Status Examination - Cognitive Function Orientation: Person, Place, Situation, Time Memory: Intact Attention: WNL Concentration: WNL Fund of Knowledge: WNL Decription of patient's judgement and insights: Fair I/J - Mood Mood: Depressed - Affect Affect: Constricted, Depressed - Speech Speech: Soft - Formal Thought Process Formal Thought Process: Circumstantial Psychotic Thoughts and Behaviors: Denies AH/VH - Suicidal Ideation Suicidal Ideation: No - Homicidal Ideation Homicidal Ideation: No Goal/Treatment Plan - Goal/Treatment Plan Need for Continued Stay: Remain at risks for inpatient hospitalization, Severe depression anxiety, Discharge may exacerbated symptoms Progress Toward Problem(s) and Goals/Treatment Plan: MDD w/ psychotic features vs Schizoaffective Disorder -Continue Cymbalta -Continue Clozapine -Hold Klonopin -Medicine consult -Individual and group therapy -Psychoeducation -Medical clearance for ECT completed -Continue ECT as recommended by Dr. Martinez; third procedure scheduled for today -Disposition planning
[2019-01-01] MEDS ORDERED: Succinylcholine 200 mg/10 ml Inj IV ONE (08:53)
--- NOTE | 2019-01-01 11:55 | PCM.ECT ---
Electroconvulsive Therapy Note - Procedure: ECT Preprocedure Diagnosis: MAJOR DEPRESSV DISORDER, RECURRENT, SEVERE W PSYCH SYMPTOMS Court Ordered: No Current treatment number: 2 Total number of treatment: 12 - Number of ECT this course Bilateral: 2 (bilateral) - Assessment/Plan Assessment: pt received second ECT treatment electrode palcement bilateral received 150propofol and 80sucinyl choline pulse width 0.5msec frequency 30hz duration 8 sec current 800ma charge 192mc energy 33.8j vitals bp 129/87 HR 97 pulse oxy 100% pt tolerated treatment well, seizure length no complications for anaesthesia or after procedure Medication Plan: propofol
[2019-01-01] MEDS: Multivitamin With Minerals Tab PO SCH (12:11)
[2019-01-01] MEDS: Cholecalciferol 400 Intl Units Tab PO SCH (12:12)
[2019-01-01] MEDS: Bisacodyl 5mg EC Tab PO PRN (12:18)
--- NOTE | 2019-01-01 14:24 | PCM.ECT ---
Electroconvulsive Therapy Note - Procedure: ECT Preprocedure Diagnosis: MAJOR DEPRESSV DISORDER, RECURRENT, SEVERE W PSYCH SYMPTOMS Court Ordered: No Current treatment number: 3 Total number of treatment: 12 - Number of ECT this course Bilateral: 3 (bilateral) - Assessment/Plan Assessment: pt received today third ECT treatment pt received propofol 150 succinyl choline 80 vitals after procedure BP 129/85 PULSE 87 PULSE OXIMETERY 100% TREATMENT PARAMETERS/ PULSE WIDTH 0.5 MSEC IMPEDENCE/ 320 OHMS FREQUENCY/ 30HZ DURATION 8SEC CURRENT 800MA CHARGE/ 192MC ENERGY/ 33.8J SEIZURE LENGTH 12SEC PT TOLERATED TREATMENT WELL. ,NO SIDE EFFECTS FOR PROCEDURE, NO SIDE EFFECTS FOR ANAESTHESIA
[2019-01-02] MEDS: Levothyroxine 88 MCG TAB PO SCH (05:58)
[2019-01-02 06:26] LABS: BASO # 0.1 K/uL (0.0-0.2); BASO % 0.8 % (0.0-2.0); EOS % 0.5 % (0.0-4.0); HEMOGLOBIN 14.1 g/dL (12.0-18.0); LYMPH # 1.7 K/uL (1.0-4.3); LYMPH % 25.1 % (20.0-40.0); MEAN CELL VOLUME 87.9 fl (80.0-94.0); MEAN PLATELET VOLUME 8.4 fl (7.2-11.7); MONO # 1.2 K/uL (0.0-0.8); MONO % 18.2 % (0.0-10.0); NEUT # 3.7 K/uL (1.8-7.0); NEUT % 55.4 % (50.0-75.0); NRBC % 0.1 % (0.0-0.0); RBC 4.86 Mil/uL (4.40-5.90); RED CELL DISTRIBUTION WIDTH 15.3 % (11.5-14.5); WHITE BLOOD COUNT 6.6 K/uL (4.8-10.8)
[2019-01-02] MEDS: Multivitamin With Minerals Tab PO SCH (08:34)
[2019-01-02] MEDS: Cholecalciferol 400 Intl Units Tab PO SCH (08:35)
--- NOTE | 2019-01-02 12:08 | PCM.PYCHPN ---
Psychiatric Progress Note - Psychiatric Progress Note Patient seen today, length of contact: Pt evaluated, case discussed w/ team, chart reviewed Patient Chief Complaint: Depression Problems Identified/Issues Discussed: Patient continues to report severe, chronic depression. He also reports feeling irritable and anxious. He is able to contract for safety in the hospital and denies acute suicidal ideation/plan/intent. 4th ECT procedure scheduled for tomorrow. Medication Change: No Medical Record Reviewed: Yes Consults ordered or reviewed: Medicine consult, ECT medical clearance, Psychiatry consult with Dr. Martinez for ECT treatment Mental Status Examination - Cognitive Function Orientation: Person, Place, Situation, Time Memory: Intact Attention: WNL Concentration: WNL Fund of Knowledge: WNL Decription of patient's judgement and insights: Fair I/J - Mood Mood: Depressed - Affect Affect: Constricted, Depressed - Speech Speech: Soft - Formal Thought Process Formal Thought Process: Circumstantial Psychotic Thoughts and Behaviors: Denies AH/VH - Suicidal Ideation Suicidal Ideation: No - Homicidal Ideation Homicidal Ideation: No Goal/Treatment Plan - Goal/Treatment Plan Need for Continued Stay: Remain at risks for inpatient hospitalization, Severe depression anxiety, Discharge may exacerbated symptoms Progress Toward Problem(s) and Goals/Treatment Plan: MDD w/ psychotic features vs Schizoaffective Disorder -Continue Cymbalta -Continue Clozapine -Hold Klonopin -Medicine consult -Individual and group therapy -Psychoeducation -Medical clearance for ECT completed -Continue ECT as recommended by Dr. Martinez; third procedure scheduled for today -Disposition planning
[2019-01-03] MEDS ORDERED: Lactated Ringer's 500 ML IV ONE (08:14)
[2019-01-03] MEDS: Multivitamin With Minerals Tab PO SCH (09:58)
[2019-01-03] MEDS: Levothyroxine 88 MCG TAB PO SCH (09:58)
[2019-01-03] MEDS: Cholecalciferol 400 Intl Units Tab PO SCH (10:00)
--- NOTE | 2019-01-03 11:56 | PCM.PYCHPN ---
Psychiatric Progress Note - Psychiatric Progress Note Patient seen today, length of contact: Pt evaluated, case discussed w/ team, chart reviewed Patient Chief Complaint: Depression Problems Identified/Issues Discussed: Patient had his fourth scheduled ECT procedure this morning. He reports some mild neck pain, but denies other acute pain/discomfort. Patient continues to report severe, chronic depression. He is able to contract for safety in the hospital and denies acute suicidal ideation/plan/intent. Medication Change: No Medical Record Reviewed: Yes Consults ordered or reviewed: Medicine consult, ECT medical clearance, Psychiatry consult with Dr. Martinez for ECT treatment Mental Status Examination - Cognitive Function Orientation: Person, Place, Situation, Time Memory: Intact Attention: WNL Concentration: WNL Fund of Knowledge: WNL Decription of patient's judgement and insights: Fair I/J - Mood Mood: Depressed - Affect Affect: Constricted, Depressed - Speech Speech: Soft - Formal Thought Process Formal Thought Process: Circumstantial Psychotic Thoughts and Behaviors: Denies AH/VH - Suicidal Ideation Suicidal Ideation: No - Homicidal Ideation Homicidal Ideation: No Goal/Treatment Plan - Goal/Treatment Plan Need for Continued Stay: Remain at risks for inpatient hospitalization, Severe depression anxiety, Discharge may exacerbated symptoms Progress Toward Problem(s) and Goals/Treatment Plan: MDD w/ psychotic features vs Schizoaffective Disorder -Continue Cymbalta -Continue Clozapine -Hold Klonopin -Medicine consult -Individual and group therapy -Psychoeducation -Medical clearance for ECT completed -Continue ECT as recommended by Dr. Martinez; 4th procedure on 01/03/19 -Disposition planning
--- NOTE | 2019-01-03 23:06 | CP.PCM.PN ---
Subjective - Date & Time of Evaluation Date of Evaluation: 01/03/19 Time of Evaluation: 14:30 - Subjective Subjective: Plan of Care discussed with staff; chart, labs, meds reviewed. Pt underwent ECT, will continue to have it done -. As per staff, pt reports occasional headaches and fatigue. Objective - Vital Signs/Intake and Output Vital Signs (last 24 hours): Temp Pulse Resp BP Pulse Ox 97.6 F 68 20 106/70 97 01/03/19 15:53 01/03/19 15:53 01/03/19 15:53 01/03/19 15:53 01/03/19 09:50 Intake and Output: 01/03/19 01/04/19 18:59 06:59 Intake Total 100 Balance 100 - Medications Medications: Current Medications Acetaminophen (Tylenol 325mg Tab) 650 mg PO Q4 PRN PRN Reason: Pain (4-7) Last Admin: 01/03/19 10:04 Dose: 650 mg Al Hydrox/Mg Hydrox/Simethicone (Maalox Plus 30 Ml) 30 ml PO Q4 PRN PRN Reason: Dyspepsia Atorvastatin Calcium (Lipitor) 40 mg PO [facility] Last Admin: 01/03/19 21:01 Dose: 40 mg Bisacodyl (Dulcolax) 5 mg PO DAILY PRN PRN Reason: Constipation Last Admin: 01/01/19 12:18 Dose: 5 mg Clonazepam (Klonopin) 0.25 mg PO BID [facility] Last Admin: 12/25/18 08:56 Dose: 0.25 mg Clozapine (Clozaril) 300 mg PO [facility] Last Admin: 01/03/19 21:01 Dose: 300 mg Diphenhydramine HCl (Benadryl) 50 mg PO Q6 PRN PRN Reason: Extrapyramidal Symptoms Docusate Sodium (Colace) 100 mg PO BID [facility] Last Admin: 01/03/19 16:44 Dose: 100 mg Duloxetine HCl (Cymbalta) 30 mg PO BID [facility] Last Admin: 01/03/19 16:44 Dose: 30 mg Hydroxyzine Pamoate (Vistaril) 50 mg PO Q8 PRN PRN Reason: Anxiety Last Admin: 01/02/19 08:37 Dose: 50 mg Lactulose (Enulose) 20 gm PO DAILY PRN PRN Reason: Constipation Levothyroxine Sodium (Synthroid) 88 mcg PO DAILY@0630 [facility] Last Admin: 01/03/19 09:58 Dose: 88 mcg Magnesium Hydroxide (Milk Of Magnesia) 30 ml PO HS PRN PRN Reason: Constipation Multivitamins/Minerals (Therapeutic-M Tab) 1 tab PO DAILY [facility] Last Admin: 01/03/19 09:58 Dose: 1 tab Sennosides (Senokot Tab) 8.6 mg PO BID [facility] Last Admin: 01/03/19 16:44 Dose: 8.6 mg Vitamin D (Vitamin D 400 Intl Units Tab) 400 intlu PO DAILY [facility] Last Admin: 01/03/19 10:00 Dose: 400 intlu - Labs Labs: 01/02/19 05:45 12/25/18 08:30 PT 12.3 Seconds (9.8-13.1) 12/07/18 18:37 INR 1.1 12/07/18 18:37 APTT 32.2 Seconds (25.6-37.1) 12/07/18 18:37 Assessment and Plan (1) Depression Assessment & Plan: Assessment/Impression/Major Problems Now: 1.) Depression -continue ECT and psych recommendations. -Tylenol for headache. -Medically stable, continue current treatment. -Recent labs unremarkable. Continue Atorvastatin for hyperlipidemia. Status: Acute
[2019-01-04] MEDS: Levothyroxine 88 MCG TAB PO SCH (05:50)
--- NOTE | 2019-01-04 07:21 | PCM.ECT ---
Electroconvulsive Therapy Note - Procedure: ECT Preprocedure Diagnosis: MAJOR DEPRESSV DISORDER, RECURRENT, SEVERE W PSYCH SYMPTOMS Court Ordered: No Current treatment number: 4 (bilateral) Total number of treatment: 12 - Number of ECT this course Bilateral: 4 - Assessment/Plan Comment: pt received treatment number 4 bilateral stimulation charge 192 mc energy 25.5 j stat impedance 320 dynamic [id number] puse width 0.5 msec frequency 30 hz duration 8.00sec current 800 ma seizure duration visible 12 sec pt tolerated treatment well , no noted side effects of anaesthesia - Treatment Parameters Charge amp (in %): 800 Frequency (in Hz): 30 Peripheral seizure duration (in sec): 12
[2019-01-04] MEDS: Multivitamin With Minerals Tab PO SCH (09:43)
[2019-01-04] MEDS: Cholecalciferol 400 Intl Units Tab PO SCH (09:43)
--- NOTE | 2019-01-04 10:56 | PCM.PYCHPN ---
Psychiatric Progress Note - Psychiatric Progress Note Patient seen today, length of contact: Pt evaluated, case discussed w/ team, chart reviewed Patient Chief Complaint: Depression Problems Identified/Issues Discussed: Patient continues to report severe, chronic depression. He is able to contract for safety in the hospital and denies acute suicidal ideation/plan/intent. 5th ECT procedure scheduled for tomorrow. Medication Change: No Medical Record Reviewed: Yes Consults ordered or reviewed: Medicine consult, ECT medical clearance, Psychiatry consult with Dr. Martinez for ECT treatment Mental Status Examination - Cognitive Function Orientation: Person, Place, Situation, Time Memory: Intact Attention: WNL Concentration: WNL Fund of Knowledge: WNL Decription of patient's judgement and insights: Fair I/J - Mood Mood: Depressed - Affect Affect: Constricted, Depressed - Speech Speech: Soft - Formal Thought Process Formal Thought Process: Circumstantial Psychotic Thoughts and Behaviors: Denies AH/VH - Suicidal Ideation Suicidal Ideation: No - Homicidal Ideation Homicidal Ideation: No Goal/Treatment Plan - Goal/Treatment Plan Need for Continued Stay: Remain at risks for inpatient hospitalization, Severe depression anxiety, Discharge may exacerbated symptoms Progress Toward Problem(s) and Goals/Treatment Plan: MDD w/ psychotic features vs Schizoaffective Disorder -Continue Cymbalta -Continue Clozapine -Hold Klonopin -Medicine consult -Individual and group therapy -Psychoeducation -Medical clearance for ECT completed -Continue ECT; 5th procedure scheduled for 01/05/19 -Disposition planning
[2019-01-05] MEDS ORDERED: Propofol 10 mg/ml Inj (20 ML) ONE (07:44)
[2019-01-05] MEDS ORDERED: Succinylcholine Chloride 20 mg/ml Syr (5 ml) IV ONE (07:44)
--- NOTE | 2019-01-05 08:11 | PCM.PYCHPN ---
Psychiatric Progress Note - Psychiatric Progress Note Patient seen today, length of contact: Pt evaluated, case discussed w/ team, chart reviewed Patient Chief Complaint: Depression Problems Identified/Issues Discussed: Patient continues to report severe, chronic depression with worsening negative thoughts. He is able to contract for safety in the hospital and denies acute suicidal ideation/plan/intent. 5th ECT procedure scheduled for today. Medication Change: No Medical Record Reviewed: Yes Consults ordered or reviewed: Medicine consult, ECT medical clearance, Psychiatry consult with Dr. Martinez for ECT treatment Mental Status Examination - Cognitive Function Orientation: Person, Place, Situation, Time Memory: Intact Attention: WNL Concentration: WNL Fund of Knowledge: WNL Decription of patient's judgement and insights: Fair I/J - Mood Mood: Depressed - Affect Affect: Constricted, Depressed - Speech Speech: Soft - Formal Thought Process Formal Thought Process: Circumstantial Psychotic Thoughts and Behaviors: Denies AH/VH - Suicidal Ideation Suicidal Ideation: No - Homicidal Ideation Homicidal Ideation: No Goal/Treatment Plan - Goal/Treatment Plan Need for Continued Stay: Remain at risks for inpatient hospitalization, Severe depression anxiety, Discharge may exacerbated symptoms Progress Toward Problem(s) and Goals/Treatment Plan: MDD w/ psychotic features vs Schizoaffective Disorder -Continue Cymbalta -Continue Clozapine -Hold Klonopin -Medicine consult -Individual and group therapy -Psychoeducation -Medical clearance for ECT completed -Continue ECT; 5th procedure scheduled for 01/05/19 -Disposition planning
[2019-01-05] MEDS ORDERED: Lactated Ringer's 1,000 ML IV ONE (08:32)
[2019-01-05] MEDS ORDERED: Lactated Ringer's 1,000 ML IV SCH (09:00)
[2019-01-05] MEDS: Levothyroxine 88 MCG TAB PO SCH (10:20)
[2019-01-05] MEDS: Cholecalciferol 400 Intl Units Tab PO SCH (10:21)
[2019-01-05] MEDS: Multivitamin With Minerals Tab PO SCH (10:21)
--- NOTE | 2019-01-05 14:08 | PCM.ECT ---
Electroconvulsive Therapy Note - Procedure: ECT Preprocedure Diagnosis: MAJOR DEPRESSV DISORDER, RECURRENT, SEVERE W PSYCH SYMPTOMS Court Ordered: No Current treatment number: 5 Total number of treatment: 12 - Number of ECT this course Bilateral: 5 (bilateral) - Assessment/Plan Assessment: pt received treatment number 5 bilateral electrode placement charge 192 mc energy 27.7J dynamic impedance 183 ohms frequency 30 hz duration 8 sec current 800 ma anaesthesia propofol 150 succinyl choline 80 BP/ 142/85 hr 98 PULSE OXIMETERY 95 SEIZURE DURATION 26 SEC PT TOLERATED TREATMENT WELL, NO REPORTED SIDE EFFECTS OF ANAESTHESIA - Treatment Parameters Setting: Bilateral
[2019-01-06] MEDS: Levothyroxine 88 MCG TAB PO SCH (06:05)
[2019-01-06] MEDS: Multivitamin With Minerals Tab PO SCH (08:58)
[2019-01-06] MEDS: Cholecalciferol 400 Intl Units Tab PO SCH (08:58)
--- NOTE | 2019-01-06 09:02 | PCM.PYCHPN ---
Psychiatric Progress Note - Psychiatric Progress Note Patient seen today, length of contact: Pt evaluated, case discussed w/ team, chart reviewed Patient Chief Complaint: Depression Problems Identified/Issues Discussed: Patient continues to report severe, chronic depression with recurrent negative thoughts. He is able to contract for safety in the hospital and denies acute suicidal ideation/plan/intent. He denies any acute worsening of his memory. 6th ECT scheduled for Tuesday. Medication Change: No Medical Record Reviewed: Yes Consults ordered or reviewed: Medicine consult, ECT medical clearance, Psychiatry consult with Dr. Martinez for ECT treatment Mental Status Examination - Cognitive Function Orientation: Person, Place, Situation, Time Memory: Intact Attention: WNL Concentration: WNL Fund of Knowledge: WNL Decription of patient's judgement and insights: Fair I/J - Mood Mood: Depressed - Affect Affect: Constricted, Depressed - Speech Speech: Soft - Formal Thought Process Formal Thought Process: Circumstantial Psychotic Thoughts and Behaviors: Denies AH/VH - Suicidal Ideation Suicidal Ideation: No - Homicidal Ideation Homicidal Ideation: No Goal/Treatment Plan - Goal/Treatment Plan Need for Continued Stay: Remain at risks for inpatient hospitalization, Severe depression anxiety, Discharge may exacerbated symptoms Progress Toward Problem(s) and Goals/Treatment Plan: MDD w/ psychotic features vs Schizoaffective Disorder -Continue Cymbalta -Continue Clozapine -Hold Klonopin -Medicine consult -Individual and group therapy -Psychoeducation -Medical clearance for ECT completed -Continue ECT; 6th procedure scheduled for 01/08/19 -Disposition planning
[2019-01-07] MEDS: Levothyroxine 88 MCG TAB PO SCH (05:57)
[2019-01-07] MEDS: Multivitamin With Minerals Tab PO SCH (08:52)
[2019-01-07] MEDS: Cholecalciferol 400 Intl Units Tab PO SCH (08:53)
--- NOTE | 2019-01-07 10:01 | PCM.PYCHPN ---
Psychiatric Progress Note - Psychiatric Progress Note Patient seen today, length of contact: Pt evaluated, case discussed w/ team, chart reviewed Patient Chief Complaint: Depression Problems Identified/Issues Discussed: Patient continues to report severe, chronic depression. He is able to contract for safety in the hospital and denies acute suicidal ideation/plan/intent. He denies any acute worsening of his memory. 6th ECT scheduled for Tuesday. Medication Change: No Medical Record Reviewed: Yes Consults ordered or reviewed: Medicine consult, ECT medical clearance, Psychiatry consult with Dr. Martinez for ECT treatment Mental Status Examination - Cognitive Function Orientation: Person, Place, Situation, Time Memory: Intact Attention: WNL Concentration: WNL Fund of Knowledge: WNL Decription of patient's judgement and insights: Fair I/J - Mood Mood: Depressed - Affect Affect: Constricted, Depressed - Speech Speech: Soft - Formal Thought Process Formal Thought Process: Circumstantial Psychotic Thoughts and Behaviors: Denies AH/VH - Suicidal Ideation Suicidal Ideation: No - Homicidal Ideation Homicidal Ideation: No Goal/Treatment Plan - Goal/Treatment Plan Need for Continued Stay: Remain at risks for inpatient hospitalization, Severe depression anxiety, Discharge may exacerbated symptoms Progress Toward Problem(s) and Goals/Treatment Plan: MDD w/ psychotic features vs Schizoaffective Disorder -Continue Cymbalta -Continue Clozapine -Hold Klonopin -Medicine consult -Individual and group therapy -Psychoeducation -Medical clearance for ECT completed -Continue ECT; 6th procedure scheduled for 01/08/19 -Disposition planning
[2019-01-08] MEDS ORDERED: Propofol 10 mg/ml Inj (20 ML) ONE (08:00)
[2019-01-08] MEDS ORDERED: Succinylcholine 200 mg/10 ml Inj IV ONE (08:01)
--- NOTE | 2019-01-08 08:08 | PCM.PYCHPN ---
Psychiatric Progress Note - Psychiatric Progress Note Patient seen today, length of contact: Pt evaluated, case discussed w/ team, chart reviewed Patient Chief Complaint: Depression Problems Identified/Issues Discussed: Patient continues to report severe, chronic depression, w/ low motivation and energy. He is able to contract for safety in the hospital and denies acute suicidal ideation/plan/intent. 6th ECT scheduled for today. Medication Change: No Medical Record Reviewed: Yes Consults ordered or reviewed: Medicine consult, ECT medical clearance, Psychiatry consult with Dr. Martinez for ECT treatment Mental Status Examination - Cognitive Function Orientation: Person, Place, Situation, Time Memory: Intact Attention: WNL Concentration: WNL Fund of Knowledge: WNL Decription of patient's judgement and insights: Fair I/J - Mood Mood: Depressed - Affect Affect: Constricted, Depressed - Speech Speech: Soft - Formal Thought Process Formal Thought Process: Circumstantial Psychotic Thoughts and Behaviors: Denies AH/VH - Suicidal Ideation Suicidal Ideation: No - Homicidal Ideation Homicidal Ideation: No Goal/Treatment Plan - Goal/Treatment Plan Need for Continued Stay: Remain at risks for inpatient hospitalization, Severe depression anxiety, Discharge may exacerbated symptoms Progress Toward Problem(s) and Goals/Treatment Plan: MDD w/ psychotic features vs Schizoaffective Disorder -Continue Cymbalta -Continue Clozapine -Medicine consult -Individual and group therapy -Psychoeducation -Medical clearance for ECT completed -Continue ECT; 6th procedure scheduled for 01/08/19 -Disposition planning
[2019-01-08] MEDS: Lactated Ringer's 500 ML IV ONE ×2 (08:10→08:25)
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
[2019-01-08] MEDS: Cholecalciferol 400 Intl Units Tab PO SCH (09:42)
[2019-01-08] MEDS: Multivitamin With Minerals Tab PO SCH (09:42)
[2019-01-08] MEDS: Levothyroxine 88 MCG TAB PO SCH (09:43)
--- NOTE | 2019-01-08 21:43 | PCM.ECT ---
Electroconvulsive Therapy Note - Procedure: ECT Preprocedure Diagnosis: MAJOR DEPRESSV DISORDER, RECURRENT, SEVERE W PSYCH SYMPTOMS Court Ordered: No Current treatment number: 6 Total number of treatment: 12 - Number of ECT this course Bilateral: 6 (6) - Assessment/Plan Assessment: pt received treatment 6 bilateral electrode placement/propofol/150 , succinyl choline/80 charge 192 mc energy 26.9 j pulse width 0.5 freq 30 duration 8 current 800ma seizure duration 16 sec BP/129/89 HR 97 Pulse oximetery /99 pt tolerated treatment well no reported side effects of anaesthesia Medication Plan: succinylcholine, propofol - Treatment Parameters Setting: Bilateral Charge amp (in %): 192 Pulse width (in msec): 0.5 Frequency (in Hz): 30 Peripheral seizure duration (in sec): 8
[2019-01-09] MEDS: Levothyroxine 88 MCG TAB PO SCH (05:37)
[2019-01-09 06:47] LABS: BASO % 0.7 % (0.0-2.0); EOS % 0.4 % (0.0-4.0); HEMOGLOBIN 14.6 g/dL (12.0-18.0); LYMPH # 1.4 K/uL (1.0-4.3); LYMPH % 21.7 % (20.0-40.0); MEAN CELL VOLUME 87.8 fl (80.0-94.0); MEAN CORPUSCULAR HEMOGLOBIN 29.6 pg (27.0-31.0); MEAN CORPUSCULAR HGB CONC 33.7 g/dL (33.0-37.0); MEAN PLATELET VOLUME 8.9 fl (7.2-11.7); MONO # 1.2 K/uL (0.0-0.8); MONO % 17.9 % (0.0-10.0); NEUT # 3.9 K/uL (1.8-7.0); NEUT % 59.3 % (50.0-75.0); NRBC % 0.2 % (0.0-0.0); RBC 4.92 Mil/uL (4.40-5.90); RED CELL DISTRIBUTION WIDTH 15.1 % (11.5-14.5); WHITE BLOOD COUNT 6.5 K/uL (4.8-10.8)
[2019-01-09] MEDS: Cholecalciferol 400 Intl Units Tab PO SCH (08:13)
[2019-01-09] MEDS: Multivitamin With Minerals Tab PO SCH (08:13)
--- NOTE | 2019-01-09 08:15 | PCM.PYCHPN ---
Psychiatric Progress Note - Psychiatric Progress Note Patient seen today, length of contact: Pt evaluated, case discussed w/ team, chart reviewed Patient Chief Complaint: Depression Problems Identified/Issues Discussed: Patient continues to report severe, chronic depression, but states that he believes his energy level is starting to improve. He continues to struggle w/ negative thoughts which make him feel more depressed. He is able to contract for safety in the hospital and denies acute suicidal ideation/plan/intent. 7th ECT scheduled for tomorrow. Medication Change: No Medical Record Reviewed: Yes Consults ordered or reviewed: Medicine consult, ECT medical clearance, Psychiatry consult with Dr. Martinez for ECT treatment Mental Status Examination - Cognitive Function Orientation: Person, Place, Situation, Time Memory: Intact Attention: WNL Concentration: WNL Fund of Knowledge: WNL Decription of patient's judgement and insights: Fair I/J - Mood Mood: Depressed - Affect Affect: Constricted, Depressed - Speech Speech: Soft - Formal Thought Process Formal Thought Process: Circumstantial Psychotic Thoughts and Behaviors: Denies AH/VH - Suicidal Ideation Suicidal Ideation: No - Homicidal Ideation Homicidal Ideation: No Goal/Treatment Plan - Goal/Treatment Plan Need for Continued Stay: Remain at risks for inpatient hospitalization, Severe depression anxiety, Discharge may exacerbated symptoms Progress Toward Problem(s) and Goals/Treatment Plan: MDD w/ psychotic features vs Schizoaffective Disorder -Continue Cymbalta -Continue Clozapine -Medicine consult -Individual and group therapy -Psychoeducation -Medical clearance for ECT completed -Continue ECT; 7th procedure scheduled for 01/10/19 -Disposition planning
[2019-01-10] MEDS ORDERED: Propofol 10 mg/ml Inj (20 ML) ONE (08:04)
[2019-01-10] MEDS ORDERED: Succinylcholine 200 mg/10 ml Inj IV ONE (08:06)
[2019-01-10] MEDS ORDERED: Atropine 0.4 mg/ml Inj (1 mL) ONE (08:06)
[2019-01-10] MEDS ORDERED: Lactated Ringer's 500 ML IV ONE ×2 (08:38→09:00)
[2019-01-10] MEDS: Multivitamin With Minerals Tab PO SCH (10:28)
[2019-01-10] MEDS: Levothyroxine 88 MCG TAB PO SCH (10:28)
[2019-01-10] MEDS: Cholecalciferol 400 Intl Units Tab PO SCH (10:28)
--- NOTE | 2019-01-10 11:14 | PCM.PYCHPN ---
Psychiatric Progress Note - Psychiatric Progress Note Patient seen today, length of contact: Pt evaluated, case discussed w/ team, chart reviewed Patient Chief Complaint: Depression Problems Identified/Issues Discussed: Patient continues to report severe, chronic depression. He is able to contract for safety in the hospital and denies acute suicidal ideation/plan/intent. 7th ECT performed this morning. Medication Change: No Medical Record Reviewed: Yes Consults ordered or reviewed: Medicine consult, ECT medical clearance, Psychiatry consult with Dr. Martinez for ECT treatment Mental Status Examination - Cognitive Function Orientation: Person, Place, Situation, Time Memory: Intact Attention: WNL Concentration: WNL Fund of Knowledge: WNL Decription of patient's judgement and insights: Fair I/J - Mood Mood: Depressed - Affect Affect: Constricted, Depressed - Speech Speech: Soft - Formal Thought Process Formal Thought Process: Circumstantial Psychotic Thoughts and Behaviors: Denies AH/VH - Suicidal Ideation Suicidal Ideation: No - Homicidal Ideation Homicidal Ideation: No Goal/Treatment Plan - Goal/Treatment Plan Need for Continued Stay: Remain at risks for inpatient hospitalization, Severe depression anxiety, Discharge may exacerbated symptoms Progress Toward Problem(s) and Goals/Treatment Plan: MDD w/ psychotic features vs Schizoaffective Disorder -Continue Cymbalta -Continue Clozapine -Medicine consult -Individual and group therapy -Psychoeducation -Medical clearance for ECT completed -Continue ECT; 7th procedure on 01/10/19 -Disposition planning
--- NOTE | 2019-01-10 14:22 | PCM.ECT ---
Electroconvulsive Therapy Note - Procedure: ECT Preprocedure Diagnosis: MAJOR DEPRESSV DISORDER, RECURRENT, SEVERE W PSYCH SYMPTOMS Court Ordered: No Current treatment number: 7 Total number of treatment: 12 - Number of ECT this course Bilateral: 7 (bilateral) - Assessment/Plan Assessment: treatment no 7 charge 224mc [id number] static imp 270 ohms dynaic imp 168 ohms pulse width 0.5 msec freq 35hz duration 8 sec current 8800ma anesthesis propfol/150 succinyl choline /80 seizure duation/ 50 seconds pt tolerated treatment well, no reported side effects of anesthesia pulse/87 BP / 118 hr 79 pulse oximetery/ 100 - Treatment Parameters Setting: Bilateral Charge amp (in %): 5
[2019-01-11] MEDS: Levothyroxine 88 MCG TAB PO SCH (06:10)
[2019-01-11] MEDS: Multivitamin With Minerals Tab PO SCH (08:18)
--- NOTE | 2019-01-11 14:20 | PCM.PYCHPN ---
Psychiatric Progress Note - Psychiatric Progress Note Patient seen today, length of contact: Pt evaluated, case discussed w/ team, chart reviewed Patient Chief Complaint: Depression Problems Identified/Issues Discussed: Patient continues to report feeling depressed, but believes his baseline is improving and he is starting to have more energy. He has brighter affect and is more engaged in the community. He is able to contract for safety in the hospital and denies acute suicidal ideation/plan/intent. 8th ECT scheduled for 01/12/19. Medication Change: No Medical Record Reviewed: Yes Consults ordered or reviewed: Medicine consult, ECT medical clearance, Psychiatry consult with Dr. Martinez for ECT treatment Mental Status Examination - Cognitive Function Orientation: Person, Place, Situation, Time Memory: Intact Attention: WNL Concentration: WNL Fund of Knowledge: WNL Decription of patient's judgement and insights: Fair I/J - Mood Mood: Depressed - Affect Affect: Constricted, Depressed - Speech Speech: Soft - Formal Thought Process Formal Thought Process: Circumstantial Psychotic Thoughts and Behaviors: Denies AH/VH - Suicidal Ideation Suicidal Ideation: No - Homicidal Ideation Homicidal Ideation: No Goal/Treatment Plan - Goal/Treatment Plan Need for Continued Stay: Remain at risks for inpatient hospitalization, Severe depression anxiety, Discharge may exacerbated symptoms Progress Toward Problem(s) and Goals/Treatment Plan: MDD w/ psychotic features vs Schizoaffective Disorder -Continue Cymbalta -Continue Clozapine -Medicine consult -Individual and group therapy -Psychoeducation -Medical clearance for ECT completed -Continue ECT; 8th procedure on 01/12/19 -Disposition planning
[2019-01-11] MEDS: Cholecalciferol 400 Intl Units Tab PO SCH (17:37)
--- NOTE | 2019-01-11 23:34 | CP.PCM.PN ---
Subjective - Date & Time of Evaluation Date of Evaluation: 01/10/19 Time of Evaluation: 07:30 - Subjective Subjective: Pt seen and assessed at bedside, for ECT today (-- schedule). No new complaints, reports doing well. Plan of care discussed with staff; labs, meds, and chart reviewed. Review of Systems - Review of Systems All systems: reviewed and no additional remarkable complaints except Review of Systems: intermittent headaches Objective - Vital Signs/Intake and Output Vital Signs (last 24 hours): Temp Pulse Resp BP Pulse Ox 98.2 F 75 20 123/64 96 01/11/19 15:59 01/11/19 15:59 01/11/19 15:59 01/11/19 15:59 01/10/19 10:00 - Medications Medications: Current Medications Acetaminophen (Tylenol 325mg Tab) 650 mg PO Q4 PRN PRN Reason: Pain (4-7) Last Admin: 01/03/19 10:04 Dose: 650 mg Al Hydrox/Mg Hydrox/Simethicone (Maalox Plus 30 Ml) 30 ml PO Q4 PRN PRN Reason: Dyspepsia Atorvastatin Calcium (Lipitor) 40 mg PO [facility] Last Admin: 01/11/19 21:11 Dose: 40 mg Bisacodyl (Dulcolax) 5 mg PO DAILY PRN PRN Reason: Constipation Last Admin: 01/01/19 12:18 Dose: 5 mg Clozapine (Clozaril) 300 mg PO [facility] Last Admin: 01/11/19 21:10 Dose: 300 mg Diphenhydramine HCl (Benadryl) 50 mg PO Q6 PRN PRN Reason: Extrapyramidal Symptoms Docusate Sodium (Colace) 100 mg PO BID [facility] Last Admin: 01/11/19 17:37 Dose: 100 mg Duloxetine HCl (Cymbalta) 30 mg PO BID [facility] Last Admin: 01/11/19 17:37 Dose: 30 mg Hydroxyzine Pamoate (Vistaril) 50 mg PO Q8 PRN PRN Reason: Anxiety Last Admin: 01/04/19 16:39 Dose: 50 mg Lactated Ringer's (Lactated Ringer's) 1,000 mls @ 125 mls/hr IV .Q8H [facility] Lactulose (Enulose) 20 gm PO DAILY PRN PRN Reason: Constipation Last Admin: 01/11/19 17:38 Dose: 20 gm Levothyroxine Sodium (Synthroid) 88 mcg PO DAILY@0630 [facility] Last Admin: 01/11/19 06:10 Dose: 88 mcg Magnesium Hydroxide (Milk Of Magnesia) 30 ml PO HS PRN PRN Reason: Constipation Multivitamins/Minerals (Therapeutic-M Tab) 1 tab PO DAILY [facility] Last Admin: 01/11/19 08:18 Dose: 1 tab Sennosides (Senokot Tab) 8.6 mg PO BID [facility] Last Admin: 01/11/19 17:37 Dose: 8.6 mg Vitamin D (Vitamin D 400 Intl Units Tab) 400 intlu PO DAILY [facility] Last Admin: 01/11/19 17:37 Dose: 400 intlu - Labs Labs: 01/09/19 06:00 12/25/18 08:30 PT 12.3 Seconds (9.8-13.1) 12/07/18 18:37 INR 1.1 12/07/18 18:37 APTT 32.2 Seconds (25.6-37.1) 12/07/18 18:37 - Head Exam Head Exam: NORMOCEPHALIC - Eye Exam Eye Exam: EOMI, Normal appearance, PERRL Pupil Exam: PERRL - ENT Exam ENT Exam: Mucous Membranes Moist - Neck Exam Neck Exam: Full ROM - Respiratory Exam Respiratory Exam: Clear to Ausculation Bilateral - Cardiovascular Exam Cardiovascular Exam: REGULAR RHYTHM, +S1, +S2 - GI/Abdominal Exam GI & Abdominal Exam: Soft, Normal Bowel Sounds - Extremities Exam Extremities Exam: Full ROM, Normal Capillary Refill, Normal Inspection - Back Exam Back Exam: NORMAL INSPECTION - Neurological Exam Neurological Exam: Alert, Awake, Oriented x3 - Psychiatric Exam Psychiatric exam: Depressed - Skin Skin Exam: Dry, Normal Color, Warm Assessment and Plan (1) Depression Assessment & Plan: 1.) Depression -Undergoing ECT M-W-F. -Reports occasional headache s/p ECT- tylenol PRN. -medically stable at present. -continue current tx. Status: Acute
[2019-01-12] MEDS ORDERED: Succinylcholine 200 mg/10 ml Inj IV ONE (08:01)
[2019-01-12] MEDS ORDERED: Propofol 10 mg/ml Inj (20 ML) ONE (08:02)
[2019-01-12] MEDS ORDERED: Atropine 0.4 mg/ml Inj (1 mL) ONE (08:02)
--- NOTE | 2019-01-12 09:47 | PCM.ECT ---
Electroconvulsive Therapy Note - Procedure: ECT Preprocedure Diagnosis: MAJOR DEPRESSV DISORDER, RECURRENT, SEVERE W PSYCH SYMPTOMS Court Ordered: No Current treatment number: 8 - Number of ECT this course Bilateral: 8 (bilateral) - Assessment/Plan Assessment: pt yesterday was given Alicia depression rating scale score on initiation of ECT treatment 12/26/18 27, score on 01/11/19 20 pt today received treatment number 8 anesthesia/ propofol:150 succinyl choline :100 bilateral electrode placement charge/224 mc energy 32.2 J static imp/ 450 ohms dynamicimp 179 ohms pulse width/ 0.5 msec frequency/ 35 hz duration 8 sec current 800 ma seizure duration/ 21 sec vitals HR 79 bp 143/82 PULSE OXI 98 Pt tolerated treatment well, no reported side effects of anesthesia next treatment scheduled on 01/15/19
[2019-01-12] MEDS: Cholecalciferol 400 Intl Units Tab PO SCH (10:00)
[2019-01-12] MEDS: Levothyroxine 88 MCG TAB PO SCH (10:00)
--- NOTE | 2019-01-12 11:26 | CP.PCM.PN ---
Subjective - Date & Time of Evaluation Date of Evaluation: 01/12/19 Time of Evaluation: 10:15 - Subjective Subjective: Patient seen and examined this morning at bedside. NAD, AAOx3, denies any acute complain overnight, reports ECT this morning, well tolerated procedure. Patient is tolerating PO fiet, ambulating, denies dizziness, SOB, chest pain, palpit ations, abdominal pain, diarrhea or f/c/n/v. Objective - Vital Signs/Intake and Output Vital Signs (last 24 hours): Temp Pulse Resp BP Pulse Ox 98.2 F 71 18 115/75 95 01/12/19 09:30 01/12/19 09:30 01/12/19 09:30 01/12/19 09:30 01/12/19 09:30 Intake and Output: 01/12/19 01/12/19 06:59 18:59 Intake Total 350 Balance 350 - Medications Medications: Current Medications Acetaminophen (Tylenol 325mg Tab) 650 mg PO Q4 PRN PRN Reason: Pain (4-7) Last Admin: 01/03/19 10:04 Dose: 650 mg Al Hydrox/Mg Hydrox/Simethicone (Maalox Plus 30 Ml) 30 ml PO Q4 PRN PRN Reason: Dyspepsia Atorvastatin Calcium (Lipitor) 40 mg PO HS [facility] Last Admin: 01/11/19 21:11 Dose: 40 mg Bisacodyl (Dulcolax) 5 mg PO DAILY PRN PRN Reason: Constipation Last Admin: 01/01/19 12:18 Dose: 5 mg Clozapine (Clozaril) 300 mg PO HS [facility] Last Admin: 01/11/19 21:10 Dose: 300 mg Diphenhydramine HCl (Benadryl) 50 mg PO Q6 PRN PRN Reason: Extrapyramidal Symptoms Docusate Sodium (Colace) 100 mg PO BID [facility] Last Admin: 01/12/19 09:58 Dose: 100 mg Duloxetine HCl (Cymbalta) 30 mg PO BID [facility] Last Admin: 01/12/19 09:59 Dose: 30 mg Hydroxyzine Pamoate (Vistaril) 50 mg PO Q8 PRN PRN Reason: Anxiety Last Admin: 01/04/19 16:39 Dose: 50 mg Lactated Ringer's (Lactated Ringer's) 1,000 mls @ 125 mls/hr IV .Q8H [facility] Last Admin: 01/12/19 08:00 Dose: 350 mls Lactulose (Enulose) 20 gm PO DAILY PRN PRN Reason: Constipation Last Admin: 01/11/19 17:38 Dose: 20 gm Levothyroxine Sodium (Synthroid) 88 mcg PO DAILY@0630 [facility] Last Admin: 01/12/19 10:00 Dose: 88 mcg Magnesium Hydroxide (Milk Of Magnesia) 30 ml PO HS PRN PRN Reason: Constipation Multivitamins/Minerals (Therapeutic-M Tab) 1 tab PO DAILY [facility] Last Admin: 01/11/19 08:18 Dose: 1 tab Sennosides (Senokot Tab) 8.6 mg PO BID [facility] Last Admin: 01/12/19 09:59 Dose: 8.6 mg Vitamin D (Vitamin D 400 Intl Units Tab) 400 intlu PO DAILY [facility] Last Admin: 01/12/19 10:00 Dose: 400 intlu - Labs Labs: 01/09/19 06:00 12/25/18 08:30 PT 12.3 Seconds (9.8-13.1) 12/07/18 18:37 INR 1.1 12/07/18 18:37 APTT 32.2 Seconds (25.6-37.1) 12/07/18 18:37 - Constitutional Appears: No Acute Distress - Head Exam Head Exam: NORMAL INSPECTION - Eye Exam Eye Exam: Normal appearance Pupil Exam: NORMAL ACCOMODATION - ENT Exam ENT Exam: Mucous Membranes Moist - Neck Exam Neck Exam: Normal Inspection - Respiratory Exam Respiratory Exam: Clear to Ausculation Bilateral, NORMAL BREATHING PATTERN - Cardiovascular Exam Cardiovascular Exam: REGULAR RHYTHM, +S1, +S2 - GI/Abdominal Exam GI & Abdominal Exam: Soft, Normal Bowel Sounds. absent: Tenderness - Extremities Exam Extremities Exam: Normal Inspection - Back Exam Back Exam: NORMAL INSPECTION - Neurological Exam Neurological Exam: Alert, Awake, Oriented x3 - Psychiatric Exam Psychiatric exam: Normal Affect - Skin Skin Exam: Normal Color Assessment and Plan - Assessment and Plan (Free Text) Assessment: A/P: 58 y/o male with PMH of MDD, substance abuse, HLD, and hypothyroid admitted for management and treatment of MDD/ECT. - C/w Lipitor daily - C/w Synthroid 88mcg PO daily - C/w ECT as per psych - C/t management as per psych - Medically stable Case discussed with Dr. Baugh
--- NOTE | 2019-01-12 12:19 | PCM.PYCHPN ---
Psychiatric Progress Note - Psychiatric Progress Note Patient seen today, length of contact: Pt evaluated, case discussed w/ team, chart reviewed Patient Chief Complaint: Depression Problems Identified/Issues Discussed: Patient continues to report feeling depressed, he currently feels tired post ECT. He is able to contract for safety in the hospital and denies acute suicidal ideation/plan/intent. 9th ECT scheduled for 01/15/19. Medication Change: No Medical Record Reviewed: Yes Consults ordered or reviewed: Medicine consult, ECT medical clearance, Psychiatry consult with Dr. Martinez for ECT treatment Mental Status Examination - Cognitive Function Orientation: Person, Place, Situation, Time Memory: Intact Attention: WNL Concentration: WNL Fund of Knowledge: WNL Decription of patient's judgement and insights: Fair I/J - Mood Mood: Depressed - Affect Affect: Constricted, Depressed - Speech Speech: Soft - Formal Thought Process Formal Thought Process: Circumstantial Psychotic Thoughts and Behaviors: Denies AH/VH - Suicidal Ideation Suicidal Ideation: No - Homicidal Ideation Homicidal Ideation: No Goal/Treatment Plan - Goal/Treatment Plan Need for Continued Stay: Remain at risks for inpatient hospitalization, Severe depression anxiety, Discharge may exacerbated symptoms Progress Toward Problem(s) and Goals/Treatment Plan: MDD w/ psychotic features vs Schizoaffective Disorder -Continue Cymbalta -Continue Clozapine -Medicine consult -Individual and group therapy -Psychoeducation -Medical clearance for ECT completed -Continue ECT; 9th procedure on 01/15/19 -Disposition planning
[2019-01-12] MEDS: Multivitamin With Minerals Tab PO SCH (12:45)
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
[2019-01-13] MEDS: Levothyroxine 88 MCG TAB PO SCH (06:02)
[2019-01-13] MEDS: Cholecalciferol 400 Intl Units Tab PO SCH (09:09)
[2019-01-13] MEDS: Multivitamin With Minerals Tab PO SCH (09:10)
--- NOTE | 2019-01-13 18:31 | PCM.PYCHPN ---
Psychiatric Progress Note - Psychiatric Progress Note Patient seen today, length of contact: Pt evaluated, case discussed w/ team, chart reviewed Medication Change: No Medical Record Reviewed: Yes Mental Status Examination - Cognitive Function Orientation: Person, Place, Situation, Time Memory: Intact Attention: WNL Concentration: WNL Fund of Knowledge: WNL - Mood Mood: Depressed - Affect Affect: Constricted, Depressed - Speech Speech: Soft - Formal Thought Process Formal Thought Process: Circumstantial - Suicidal Ideation Suicidal Ideation: No - Homicidal Ideation Homicidal Ideation: No Goal/Treatment Plan - Goal/Treatment Plan Need for Continued Stay: Remain at risks for inpatient hospitalization, Severe depression anxiety, Discharge may exacerbated symptoms
[2019-01-14] MEDS: Levothyroxine 88 MCG TAB PO SCH (06:19)
[2019-01-14] MEDS: Cholecalciferol 400 Intl Units Tab PO SCH (08:34)
[2019-01-14] MEDS: Multivitamin With Minerals Tab PO SCH (08:34)
--- NOTE | 2019-01-14 21:01 | PCM.PYCHPN ---
Psychiatric Progress Note - Psychiatric Progress Note Patient seen today, length of contact: Pt evaluated, case discussed w/ team, chart reviewed Patient Chief Complaint: feeling less depressed rx adherent received prn prune juice for constipation seen about unit Problems Identified/Issues Discussed: alteration in mood Medical Problems: per chart Diagnostic Results: per psychiatry , medicine, nursing , social work, recreational therapy DSM 5 Symptoms Update: mood somewhat less depressed Medication Change: No Medical Record Reviewed: Yes Consults ordered or reviewed: pt being followed by medical team Mental Status Examination - Cognitive Function Orientation: Person, Place, Situation, Time Memory: Intact Attention: WNL Concentration: WNL Fund of Knowledge: WNL Decription of patient's judgement and insights: impaired - Mood Mood: Depressed - Affect Affect: Constricted, Depressed - Speech Speech: Soft - Formal Thought Process Formal Thought Process: No Impairment - Homicidal Ideation Homicidal Ideation: No Goal/Treatment Plan - Goal/Treatment Plan Need for Continued Stay: Remain at risks for inpatient hospitalization, Severe depression anxiety, Discharge may exacerbated symptoms Progress Toward Problem(s) and Goals/Treatment Plan: inpt milieu adjust med per clinical status discharge planning in progress Estimated Date of D/C: 01/19/19 - Smoking Cessation Smoking Cessation Initiated: No Reason for not providing: defers
[2019-01-15] MEDS ORDERED: Propofol 10 mg/ml Inj (20 ML) ONE (08:12)
[2019-01-15] MEDS ORDERED: Succinylcholine 200 mg/10 ml Inj IV ONE (08:13)
[2019-01-15] MEDS ORDERED: Lactated Ringer's 500 ML IV ONE (08:26)
[2019-01-15] MEDS: Lactated Ringer's 1,000 ML IV SCH ×2 (11:02→16:46)
[2019-01-15] MEDS: Levothyroxine 88 MCG TAB PO SCH (11:03)
[2019-01-15] MEDS: Cholecalciferol 400 Intl Units Tab PO SCH (11:04)
[2019-01-15] MEDS: Multivitamin With Minerals Tab PO SCH (11:04)
--- NOTE | 2019-01-15 20:02 | PCM.PYCHPN ---
Psychiatric Progress Note - Psychiatric Progress Note Patient seen today, length of contact: Pt evaluated, case discussed w/ team, chart reviewed Patient Chief Complaint: pt had ect treatment today denies headache acute memory changes less depressed rx adherent received prn prune juice for constipation seen about unit Problems Identified/Issues Discussed: alteration in mood Medical Problems: per chart Diagnostic Results: per psychiatry , medicine, nursing , social work, recreational therapy DSM 5 Symptoms Update: some improvement mood Medication Change: No Medical Record Reviewed: Yes Consults ordered or reviewed: pt seen by medical provider Mental Status Examination - Cognitive Function Orientation: Person, Place, Situation, Time Memory: Intact Attention: WNL Concentration: WNL Fund of Knowledge: WNL Decription of patient's judgement and insights: impaired - Mood Mood: Depressed - Affect Affect: Constricted, Depressed - Speech Speech: Soft - Formal Thought Process Formal Thought Process: No Impairment - Suicidal Ideation Suicidal Ideation: No - Homicidal Ideation Homicidal Ideation: No Goal/Treatment Plan - Goal/Treatment Plan Need for Continued Stay: Remain at risks for inpatient hospitalization, Severe depression anxiety, Discharge may exacerbated symptoms Progress Toward Problem(s) and Goals/Treatment Plan: inpt milieu adjust med per clinical status pt received ect today, pt will continue per ect team discharge planning in progress Estimated Date of D/C: 01/19/19 - Smoking Cessation Smoking Cessation Initiated: No Reason for not providing: pt defers
[2019-01-16] MEDS: Levothyroxine 88 MCG TAB PO SCH (05:58)
[2019-01-16 06:07] LABS: BASO # 0.1 K/uL (0.0-0.2); BASO % 1.2 % (0.0-2.0); EOS % 0.3 % (0.0-4.0); HEMOGLOBIN 13.6 g/dL (12.0-18.0); LYMPH # 1.6 K/uL (1.0-4.3); LYMPH % 24.9 % (20.0-40.0); MEAN CELL VOLUME 86.8 fl (80.0-94.0); MEAN CORPUSCULAR HEMOGLOBIN 28.9 pg (27.0-31.0); MEAN CORPUSCULAR HGB CONC 33.3 g/dL (33.0-37.0); MEAN PLATELET VOLUME 8.6 fl (7.2-11.7); MONO # 1.3 K/uL (0.0-0.8); MONO % 19.7 % (0.0-10.0); NEUT # 3.4 K/uL (1.8-7.0); NEUT % 53.9 % (50.0-75.0); RBC 4.71 Mil/uL (4.40-5.90); RED CELL DISTRIBUTION WIDTH 14.6 % (11.5-14.5); WHITE BLOOD COUNT 6.4 K/uL (4.8-10.8)
[2019-01-16] MEDS: Cholecalciferol 400 Intl Units Tab PO SCH (08:14)
[2019-01-16] MEDS: Multivitamin With Minerals Tab PO SCH (08:15)
[2019-01-16] MEDS: Bisacodyl 5mg EC Tab PO PRN (08:16)
[2019-01-16] MEDS: Lactated Ringer's 1,000 ML IV SCH ×2 (08:17→16:15)
--- NOTE | 2019-01-16 18:07 | PCM.PYCHPN ---
Psychiatric Progress Note - Psychiatric Progress Note Patient seen today, length of contact: Pt evaluated, case discussed w/ team, chart reviewed Patient Chief Complaint: pt had ect treatment today denies headache acute memory changes less depressed rx adherent received prn prune juice for constipation seen about unit Problems Identified/Issues Discussed: alteration in mood Medical Problems: per chart Diagnostic Results: per psychiatry , medicine, nursing , social work, recreational therapy DSM 5 Symptoms Update: receiving ect for depression minimal depression improvement, continues constipation Medication Change: No Medical Record Reviewed: Yes Consults ordered or reviewed: pt seen by medical provider Mental Status Examination - Cognitive Function Orientation: Person, Place, Situation, Time Memory: Intact Attention: WNL Concentration: WNL Fund of Knowledge: WNL Decription of patient's judgement and insights: impaired - Mood Mood: Depressed - Affect Affect: Constricted, Depressed - Speech Speech: Soft - Formal Thought Process Formal Thought Process: No Impairment - Suicidal Ideation Suicidal Ideation: No - Homicidal Ideation Homicidal Ideation: No Goal/Treatment Plan - Goal/Treatment Plan Need for Continued Stay: Remain at risks for inpatient hospitalization, Severe depression anxiety, Discharge may exacerbated symptoms Progress Toward Problem(s) and Goals/Treatment Plan: inpt milieu adjust med per clinical status pt received ect today, pt will continue per ect team review meds including medications for constipation discharge planning in progress Estimated Date of D/C: 01/19/19 - Smoking Cessation Smoking Cessation Initiated: No Reason for not providing: pt defers
[2019-01-17] MEDS: Lactated Ringer's 1,000 ML IV SCH (08:06)
[2019-01-17] MEDS: Multivitamin With Minerals Tab PO SCH (09:49)
[2019-01-17] MEDS: Levothyroxine 88 MCG TAB PO SCH (09:51)
[2019-01-17] MEDS: Cholecalciferol 400 Intl Units Tab PO SCH (13:38)
--- NOTE | 2019-01-17 16:16 | PCM.ECT ---
Electroconvulsive Therapy Note - Procedure: ECT Preprocedure Diagnosis: MAJOR DEPRESSV DISORDER, RECURRENT, SEVERE W PSYCH SYMPTOMS Court Ordered: No Current treatment number: 10 - Number of ECT this course Bilateral: 10 - Assessment/Plan Assessment: pt received treatment 10 today bilateral electrode placement anesthesia / propofol 150 succinyl choline 100 charge 256 mc energy 34.9j stat imp 410 dyn imp 172 pulse width 0.5msec freq 40hz duration 8 sec current 800ma seizure duration 20 sec pt tolerated treatment well, no reported side effects of anesthesia BP 136/82 HR 87 PULSE OXIMETRY 99PERCENT Medication Plan: succinylcholine, propofol
--- NOTE | 2019-01-17 19:03 | PCM.PYCHPN ---
Psychiatric Progress Note - Psychiatric Progress Note Patient seen today, length of contact: Pt evaluated, case discussed w/ team, chart reviewed Patient Chief Complaint: pt had ect treatment today denies headache acute memory changes less depressed rx adherent received prn prune juice for constipation seen about unit Problems Identified/Issues Discussed: alteration in mood Medical Problems: per chart Diagnostic Results: per psychiatry , medicine, nursing , social work, recreational therapy Medication Change: No Medical Record Reviewed: Yes Mental Status Examination - Cognitive Function Orientation: Person, Place, Situation, Time Memory: Intact Attention: WNL Concentration: WNL Fund of Knowledge: WNL Decription of patient's judgement and insights: impaired - Mood Mood: Depressed - Affect Affect: Constricted, Depressed - Speech Speech: Soft - Formal Thought Process Formal Thought Process: No Impairment - Suicidal Ideation Suicidal Ideation: No - Homicidal Ideation Homicidal Ideation: No Goal/Treatment Plan - Goal/Treatment Plan Need for Continued Stay: Remain at risks for inpatient hospitalization, Severe depression anxiety, Discharge may exacerbated symptoms Progress Toward Problem(s) and Goals/Treatment Plan: inpt milieu adjust med per clinical status pt received ect today, pt will continue per ect team review meds including medications for constipation discharge planning in progress Estimated Date of D/C: 01/19/19
[2019-01-18] MEDS: Levothyroxine 88 MCG TAB PO SCH (06:21)
[2019-01-18] MEDS: Multivitamin With Minerals Tab PO SCH (09:25)
[2019-01-18] MEDS: Bisacodyl 5mg EC Tab PO PRN (09:25)
[2019-01-18] MEDS: Cholecalciferol 400 Intl Units Tab PO SCH (09:25)
[2019-01-19] MEDS ORDERED: Lactated Ringer's 500 ML IV ONE (08:07)
[2019-01-19] MEDS ORDERED: Propofol 10 mg/ml Inj (20 ML) ONE (08:13)
[2019-01-19] MEDS ORDERED: Succinylcholine 200 mg/10 ml Inj IV ONE (08:15)
--- NOTE | 2019-01-19 09:13 | PCM.ECT ---
Electroconvulsive Therapy Note - Procedure: ECT Preprocedure Diagnosis: MAJOR DEPRESSV DISORDER, RECURRENT, SEVERE W PSYCH SYMPTOMS Court Ordered: No Current treatment number: 11 Total number of treatment: 12 - Number of ECT this course Bilateral: 11 - Assessment/Plan Assessment: this is treatment number 11, anesthesia / succinyl choline 150 [id number] bilateral electrode placement charge 256mc energy 28.3j stat imp 290 ohms dynamic imp 138 ohms pulse width 0.5 msec freq 40hz duration 8sec current 800ma seizure duration 10sec pt tolerated treatment well, no reported side effects will increase dose next treatment to 2.5 ST Medication Plan: succinylcholine, propofol - Treatment Parameters Setting: Bilateral
[2019-01-19] MEDS: Levothyroxine 88 MCG TAB PO SCH (10:23)
[2019-01-19] MEDS: Multivitamin With Minerals Tab PO SCH (10:24)
[2019-01-19] MEDS: Cholecalciferol 400 Intl Units Tab PO SCH (10:25)
[2019-01-19 13:19] LABS: URINE BILIRUBIN NEGATIVE (NEGATIVE); URINE BLOOD NEGATIVE (NEGATIVE); URINE CLARITY CLEAR (Clear); URINE COLOR STRAW (YELLOW); URINE GLUCOSE (UA) NEG (NEGATIVE); URINE LEUKOCYTE ESTERASE NEG Leu/uL (Negative); URINE PROTEIN NEGATIVE (NEGATIVE); URINE UROBILINOGEN 0.2-1.0 mg/dL (0.2-1.0)
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
--- NOTE | 2019-01-19 23:24 | PCM.PYCHPN ---
Psychiatric Progress Note - Psychiatric Progress Note Patient seen today, length of contact: Pt evaluated, case discussed w/ team, chart reviewed Patient Chief Complaint: pt had ect treatment today denies headache acute memory changes-reports somewhat less depressed less depressed rx adherent received prn prune juice for constipation seen about unit Problems Identified/Issues Discussed: alteration in mood somewhat improving depression receiving ect Medical Problems: per chart Diagnostic Results: per psychiatry , medicine, nursing , social work, recreational therapy DSM 5 Symptoms Update: depressed with vegatitive symptoms somewhat improving Medication Change: No Medical Record Reviewed: Yes Consults ordered or reviewed: pt seen by medical team, pt being treated by ect team Mental Status Examination - Cognitive Function Orientation: Person, Place, Situation, Time Memory: Intact Attention: WNL Concentration: WNL Association: WN Fund of Knowledge: [facility] Decription of patient's judgement and insights: impaired - Mood Mood: Depressed Additional comments: somewhat less - Affect Affect: Constricted, Depressed - Speech Speech: Soft - Formal Thought Process Formal Thought Process: No Impairment - Suicidal Ideation Suicidal Ideation: No - Homicidal Ideation Homicidal Ideation: No Goal/Treatment Plan - Goal/Treatment Plan Need for Continued Stay: Remain at risks for inpatient hospitalization, Severe depression anxiety, Discharge may exacerbated symptoms Progress Toward Problem(s) and Goals/Treatment Plan: inpt milieu adjust med per clinical status pt received ect today, pt will continue per ect team review meds including medications for constipation supportive counselling psychoeducation related current status on going treatment dlin discharge planning in progress Estimated Date of D/C: 02/02/19 - Smoking Cessation Smoking Cessation Initiated: No Reason for not providing: pt deferred
--- NOTE | 2019-01-19 23:49 | CARD ---
APPROVED REPORT Date of service: 01/19/2019 EKG Measurement Heart [id number] <Conclusion> Normal sinus rhythm Possible Lateral infarct, age undetermined CCR Abnormal ECG
[2019-01-20] MEDS: Levothyroxine 88 MCG TAB PO SCH (06:39)
--- NOTE | 2019-01-20 09:35 | PCM.PYCHPN ---
Psychiatric Progress Note - Psychiatric Progress Note Patient seen today, length of contact: Pt evaluated, case discussed w/ team, chart reviewed Patient Chief Complaint: pt has remained si.gnificantly depressed and withdrawn and with anhedonia and decreased energy level.pt hax remained very depressed with on and off negative thoughts .pt is tolrating cymbalta and clozaril well. t has improved somewhat with ECT and so far got 11 treatments . Medication Change: No Medical Record Reviewed: Yes Mental Status Examination - Cognitive Function Orientation: Person, Place, Situation, Time Memory: Intact Attention: WNL Concentration: WNL Association: WNL Fund of Knowledge: WNL - Mood Mood: Depressed - Affect Affect: Constricted, Depressed - Speech Speech: Soft - Formal Thought Process Formal Thought Process: No Impairment - Suicidal Ideation Suicidal Ideation: No - Homicidal Ideation Homicidal Ideation: No Goal/Treatment Plan - Goal/Treatment Plan Need for Continued Stay: Remain at risks for inpatient hospitalization, Severe depression anxiety, Discharge may exacerbated symptoms Progress Toward Problem(s) and Goals/Treatment Plan: Continue to stabilize with clozaril and cymbalta and engage pt in therapy. will consider ECT if does not improve with meds . Estimated Date of D/C: 02/02/19
[2019-01-20] MEDS: Cholecalciferol 400 Intl Units Tab PO SCH (09:58)
[2019-01-20] MEDS: Multivitamin With Minerals Tab PO SCH (09:58)
[2019-01-21] MEDS: Levothyroxine 88 MCG TAB PO SCH (06:27)
[2019-01-21] MEDS: Bisacodyl 5mg EC Tab PO PRN (08:44)
[2019-01-21] MEDS: Multivitamin With Minerals Tab PO SCH (08:45)
[2019-01-21] MEDS: Cholecalciferol 400 Intl Units Tab PO SCH (08:45)
--- NOTE | 2019-01-21 14:48 | PCM.PYCHPN ---
Psychiatric Progress Note - Psychiatric Progress Note Patient seen today, length of contact: Pt evaluated, case discussed w/ team, chart reviewed Patient Chief Complaint: pt has remained significantly depressed and withdrawn and with anhedonia and decreased energy level.pt hax remained very depressed with on and off negative thoughts .pt is tolrating cymbalta and clozaril well. pt has improved somewhat as per pt with ECT but still feels he has not improved significantly and so far got 11 treatments . pt is looking forward to maintenance treatment after 12 th treatment tomorrow. Medication Change: No Medical Record Reviewed: Yes Mental Status Examination - Cognitive Function Orientation: Person, Place, Situation, Time Memory: Intact Attention: WNL Concentration: WNL Association: WNL Fund of Knowledge: WNL - Mood Mood: Depressed - Affect Affect: Constricted, Depressed - Speech Speech: Soft - Formal Thought Process Formal Thought Process: No Impairment - Suicidal Ideation Suicidal Ideation: No - Homicidal Ideation Homicidal Ideation: No Goal/Treatment Plan - Goal/Treatment Plan Need for Continued Stay: Remain at risks for inpatient hospitalization, Severe depression anxiety, Discharge may exacerbated symptoms Progress Toward Problem(s) and Goals/Treatment Plan: Continue to stabilize with clozaril and cymbalta and engage pt in therapy. will consider ECT if does not improve with meds . Estimated Date of D/C: 02/02/19
[2019-01-22] MEDS ORDERED: Lactated Ringer's 500 ML IV ONE (08:05)
[2019-01-22] MEDS ORDERED: Propofol 10 mg/ml Inj (20 ML) ONE (08:07)
[2019-01-22] MEDS ORDERED: Succinylcholine Chloride 20 mg/ml Syr (5 ml) IV ONE (08:07)
--- NOTE | 2019-01-22 09:00 | CARD ---
APPROVED REPORT Date of service: 01/22/2019 EKG Measurement Heart [id number] <Conclusion> Normal sinus rhythm Normal ECG
--- NOTE | 2019-01-22 09:15 | PCM.ECT ---
Electroconvulsive Therapy Note - Procedure: ECT Preprocedure Diagnosis: MAJOR DEPRESSV DISORDER, RECURRENT, SEVERE W PSYCH SYMPTOMS Court Ordered: No Current treatment number: 12 - Assessment/Plan Assessment: pt received treatment number 12 anesthesia / propofol 180 succinyl choline 100 Bilateral electrode placement charge 320mc energy 44.7 j stat imped 370 ohms dyn imped 172 ohms pulse width 0.5 msec freq 50 hz duration 8 sec current 800 ma seizure duration 52 sec pt tolerated treatment well, no reported side effects of anesthesia vitals bp 132/79 pulse 78 pulse oximetry 99 % Medication Plan: succinylcholine, propofol - Treatment Parameters Setting: Bilateral
[2019-01-22] MEDS: Levothyroxine 88 MCG TAB PO SCH (10:07)
[2019-01-22] MEDS: Cholecalciferol 400 Intl Units Tab PO SCH (10:07)
[2019-01-22] MEDS: Multivitamin With Minerals Tab PO SCH (10:08)
--- NOTE | 2019-01-22 11:34 | PCM.PYCHPN ---
Psychiatric Progress Note - Psychiatric Progress Note Patient seen today, length of contact: Pt evaluated, case discussed w/ team, chart reviewed Patient Chief Complaint: Depression Problems Identified/Issues Discussed: Patient had his 12th ECT procedure today. He reports that he believes his baseline has improved, but he continues to feel depressed and continues to have recurrent negative thoughts. He is able to contract for safety in the hospital and denies acute suicidal ideation/plan/intent. We discussed continued titration of Cymbalta. Medication Change: Yes (Increase Cymbalta) Medical Record Reviewed: Yes Consults ordered or reviewed: Medicine consult, ECT medical clearance, Psychiatry consult with Dr. Martinez for ECT treatment Mental Status Examination - Cognitive Function Orientation: Person, Place, Situation, Time Memory: Intact Attention: WNL Concentration: WNL Association: WNL Fund of Knowledge: WNL Decription of patient's judgement and insights: Good I/J - Mood Mood: Depressed - Affect Affect: Constricted, Depressed - Speech Speech: Soft - Formal Thought Process Formal Thought Process: No Impairment Psychotic Thoughts and Behaviors: No AH/VH/paranoia/delusions - Suicidal Ideation Suicidal Ideation: No - Homicidal Ideation Homicidal Ideation: No Goal/Treatment Plan - Goal/Treatment Plan Need for Continued Stay: Remain at risks for inpatient hospitalization, Severe depression anxiety, Discharge may exacerbated symptoms Progress Toward Problem(s) and Goals/Treatment Plan: MDD w/ psychotic features vs Schizoaffective Disorder -Increase Cymbalta -Continue Clozapine; weekly CBC monitoring -Medicine consult -Individual and group therapy -Psychoeducation -Medical clearance for ECT completed -12th ECT today -Disposition planning Estimated Date of D/C: 02/02/19
[2019-01-23] MEDS: Levothyroxine 88 MCG TAB PO SCH (06:02)
[2019-01-23] MEDS: Cholecalciferol 400 Intl Units Tab PO SCH (08:14)
[2019-01-23] MEDS: Multivitamin With Minerals Tab PO SCH (08:14)
[2019-01-23 08:34] LABS: ALB/GLOB RATIO 1.4 (1.0-2.1); ALBUMIN 4.2 g/dL (3.5-5.0); ALT/SGPT 31 U/L (21-72); AST/SGOT 27 U/L (17-59); BLOOD UREA NITROGEN 14 mg/dl (9-20); CALCIUM 9.8 mg/dL (8.4-10.2); GFR NON-AFRICAN AMERICAN > 60
--- NOTE | 2019-01-23 12:05 | PCM.PYCHPN ---
Psychiatric Progress Note - Psychiatric Progress Note Patient seen today, length of contact: Pt evaluated, case discussed w/ team, chart reviewed Patient Chief Complaint: Depression Problems Identified/Issues Discussed: Patient continues to report feeling depressed, but states that he has more energy and has been more interactive in the community. He denied adverse effects to medications or ECT. He is able to contract for safety in the hospital and denies acute suicidal ideation/plan/intent. We discussed continued titration of Cymbalta. Medication Change: Yes (Increase Cymbalta) Medical Record Reviewed: Yes Consults ordered or reviewed: Medicine consult, ECT medical clearance, Psychiatry consult with Dr. Martinez for ECT treatment Mental Status Examination - Cognitive Function Orientation: Person, Place, Situation, Time Memory: Intact Attention: WNL Concentration: WNL Association: WNL Fund of Knowledge: WNL Decription of patient's judgement and insights: Good I/J - Mood Mood: Depressed - Affect Affect: Constricted, Depressed - Speech Speech: Soft - Formal Thought Process Formal Thought Process: No Impairment Psychotic Thoughts and Behaviors: No AH/VH/paranoia/delusions - Suicidal Ideation Suicidal Ideation: No - Homicidal Ideation Homicidal Ideation: No Goal/Treatment Plan - Goal/Treatment Plan Need for Continued Stay: Remain at risks for inpatient hospitalization, Severe depression anxiety, Discharge may exacerbated symptoms Progress Toward Problem(s) and Goals/Treatment Plan: MDD w/ psychotic features vs Schizoaffective Disorder -Increase Cymbalta -Continue Clozapine; weekly CBC monitoring -Medicine consult -Individual and group therapy -Psychoeducation -Medical clearance for ECT completed - ECT scheduled for tomorrow -Disposition planning Estimated Date of D/C: 02/02/19
--- NOTE | 2019-01-23 15:16 | CARD ---
APPROVED REPORT Date of service: 01/23/2019 EKG Measurement Heart [id number] <Conclusion> Normal sinus rhythm Normal ECG
--- NOTE | 2019-01-23 17:58 | CP.PCM.PN ---
Subjective - Date & Time of Evaluation Date of Evaluation: 01/23/19 Time of Evaluation: 11:00 - Subjective Subjective: patient is doing well He tolerated ECT in the last week. Has no chest painn or SOB. No recent labs EKG is normal. Objective - Vital Signs/Intake and Output Vital Signs (last 24 hours): Temp Pulse Resp BP Pulse Ox 98.6 F 63 18 136/68 95 01/23/19 15:57 01/23/19 15:57 01/23/19 15:57 01/23/19 15:57 01/22/19 09:25 - Medications Medications: Current Medications Acetaminophen (Tylenol 325mg Tab) 650 mg PO Q4 PRN PRN Reason: Pain (4-7) Last Admin: 01/03/19 10:04 Dose: 650 mg Al Hydrox/Mg Hydrox/Simethicone (Maalox Plus 30 Ml) 30 ml PO Q4 PRN PRN Reason: Dyspepsia Atorvastatin Calcium (Lipitor) 40 mg PO HS [facility] Last Admin: 01/22/19 21:15 Dose: 40 mg Bisacodyl (Dulcolax) 5 mg PO DAILY PRN PRN Reason: Constipation Last Admin: 01/21/19 08:44 Dose: 5 mg Clozapine (Clozaril) 300 mg PO HS [facility] Last Admin: 01/22/19 21:15 Dose: 300 mg Diphenhydramine HCl (Benadryl) 50 mg PO Q6 PRN PRN Reason: Extrapyramidal Symptoms Docusate Sodium (Colace) 100 mg PO BID [facility] Last Admin: 01/23/19 16:18 Dose: 100 mg Duloxetine HCl (Cymbalta) 40 mg PO BID [facility] Last Admin: 01/23/19 16:19 Dose: 40 mg Hydroxyzine Pamoate (Vistaril) 50 mg PO Q8 PRN PRN Reason: Anxiety Last Admin: 01/04/19 16:39 Dose: 50 mg Levothyroxine Sodium (Synthroid) 88 mcg PO DAILY@0630 [facility] Last Admin: 01/23/19 06:02 Dose: 88 mcg Magnesium Hydroxide (Milk Of Magnesia) 30 ml PO HS PRN PRN Reason: Constipation Last Admin: 01/18/19 21:13 Dose: 30 ml Multivitamins/Minerals (Therapeutic-M Tab) 1 tab PO DAILY [facility] Last Admin: 01/23/19 08:14 Dose: 1 tab Sennosides (Senokot Tab) 8.6 mg PO BID [facility] Last Admin: 01/23/19 16:20 Dose: 8.6 mg Vitamin D (Vitamin D 400 Intl Units Tab) 400 intlu PO DAILY [facility] Last Admin: 01/23/19 08:14 Dose: 400 intlu - Labs Labs: 01/16/19 05:48 01/23/19 08:10 PT 12.3 Seconds (9.8-13.1) 12/07/18 18:37 INR 1.1 12/07/18 18:37 APTT 32.2 Seconds (25.6-37.1) 12/07/18 18:37 - Head Exam Head Exam: NORMAL INSPECTION - Eye Exam Eye Exam: Normal appearance - ENT Exam ENT Exam: Mucous Membranes Moist - Respiratory Exam Respiratory Exam: Clear to Ausculation Bilateral - Cardiovascular Exam Cardiovascular Exam: REGULAR RHYTHM - GI/Abdominal Exam GI & Abdominal Exam: Normal Bowel Sounds - Neurological Exam Neurological Exam: Awake, Oriented x3 Assessment and Plan (1) HLD (hyperlipidemia) Status: Chronic (2) Hypothyroidism Status: Chronic (3) Depression Status: Acute (4) Rhinitis Status: Acute - Assessment and Plan (Free Text) Plan: Cont meds Cont tx medically stable for ECT check labs.
[2019-01-24 05:49] LABS: BASO # 0.1 K/uL (0.0-0.2); EOS % 0.3 % (0.0-4.0); HEMOGLOBIN 14.5 g/dL (12.0-18.0); LYMPH # 1.6 K/uL (1.0-4.3); LYMPH % 24.7 % (20.0-40.0); MEAN CELL VOLUME 87.6 fl (80.0-94.0); MEAN CORPUSCULAR HEMOGLOBIN 29.4 pg (27.0-31.0); MEAN CORPUSCULAR HGB CONC 33.5 g/dL (33.0-37.0); MEAN PLATELET VOLUME 8.7 fl (7.2-11.7); MONO # 1.4 K/uL (0.0-0.8); NEUT # 3.3 K/uL (1.8-7.0); NRBC % 0.1 % (0.0-0.0); PLATELET COUNT 305 K/uL (130-400); RBC 4.94 Mil/uL (4.40-5.90); RED CELL DISTRIBUTION WIDTH 14.7 % (11.5-14.5); WHITE BLOOD COUNT 6.3 K/uL (4.8-10.8)
[2019-01-24 06:47] LABS: ALB/GLOB RATIO 1.5 (1.0-2.1); ALBUMIN 4.2 g/dL (3.5-5.0); ALT/SGPT 38 U/L (21-72); AST/SGOT 24 U/L (17-59); BLOOD UREA NITROGEN 15 mg/dl (9-20); CALCIUM 9.7 mg/dL (8.4-10.2); GFR NON-AFRICAN AMERICAN > 60
--- NOTE | 2019-01-24 07:45 | CP.PCM.CON ---
History of Present Illness - History of Present Illness History of Present Illness: pre continuation ECT consult patient received a series of 12 Index ECT treatments starting 12/27/18 and ended 01/22/19 pt diagnosis Major depression recurrent severe with psychotic features Depression symptoms rating was done through treatment using Alicia depression rating scale The patient initial score on 12/25/18 was 27/30 after continuation of index ECT course the Alicia depression score is 14/30 pt cognitive function/ mainly memory was also evaluated through the treatment course subjectively pt denied any noted memory changes and objectively using the MMSE no noted change in original score of 29/3o through out the treatment course pt had no changes in medical history , no reported side effects other than mild headaches post treatment treated with tylenol no reported side effects of anesthesia and vital signs have been stable pt at current time will be started on continuation ECT course scheduled to be once weekly for a month pt qualifies for continuation ECT course as evidenced improvement of symptoms of depression is quantified through clinical evaluation of mental status, using the Alicia depression scale and noted subjectively by patient pt at current mental status has capacity to make decision and consented to start a continuation ECT course consent obtained after explaining risks versus benefits, pt was able to comprehend retain verbalize the information patient agreed to be started on a once weekly treatment , agreed for unilateral electrode placement after explaining risks versus benefits of different possible electrode placement pt EKG, comprehensive metabolic panel reviewed /within normal CBC ordered and reviewed Internal medical consult for clearance for ECT requested and reviewed Past Patient History - Past Medical History & Family History Past Medical History?: Yes - Past Social History Alcohol: None - CARDIAC Hx Hypercholesterolemia: Yes Hx Hypertension: No - PULMONARY Hx Tuberculosis: No - NEUROLOGICAL Hx Seizures: No - HEENT Hx HEENT Problems: No - RENAL Hx Chronic Kidney Disease: No - ENDOCRINE/METABOLIC Hx Hypothyroidism: Yes - HEMATOLOGICAL/ONCOLOGICAL Hx Anemia: Yes Hx Human Immunodeficiency Virus (HIV): No - INTEGUMENTARY Hx Dermatological Problems: No - MUSCULOSKELETAL/RHEUMATOLOGICAL Hx Fractures: Yes (LEFT HAND) - GASTROINTESTINAL Hx Gastritis: Yes - GENITOURINARY/GYNECOLOGICAL Hx Sexually Transmitted Disorders: No - PSYCHIATRIC Hx Anxiety: Yes Hx Depression: Yes Hx Post Traumatic Stress Disorder: Yes - SURGICAL HISTORY Hx Surgeries: No - ANESTHESIA Hx Anesthesia: No Hx Anesthesia Reactions: No Hx Malignant Hyperthermia: No Meds Allergies/Adverse Reactions: Allergies Allergy/AdvReac Type Severity Reaction Status Date / Time Penicillins Allergy RASH Verified 04/25/18 12:10 - Medications Medications: Current Medications Acetaminophen (Tylenol 325mg Tab) 650 mg PO Q4 PRN PRN Reason: Pain (4-7) Last Admin: 01/03/19 10:04 Dose: 650 mg Al Hydrox/Mg Hydrox/Simethicone (Maalox Plus 30 Ml) 30 ml PO Q4 PRN PRN Reason: Dyspepsia Atorvastatin Calcium (Lipitor) 40 mg PO [facility] Last Admin: 01/22/19 21:15 Dose: 40 mg Bisacodyl (Dulcolax) 5 mg PO DAILY PRN PRN Reason: Constipation Last Admin: 01/21/19 08:44 Dose: 5 mg Clozapine (Clozaril) 300 mg PO HS [facility] Last Admin: 01/22/19 21:15 Dose: 300 mg Diphenhydramine HCl (Benadryl) 50 mg PO Q6 PRN PRN Reason: Extrapyramidal Symptoms Docusate Sodium (Colace) 100 mg PO BID [facility] Last Admin: 01/23/19 08:11 Dose: 100 mg Duloxetine HCl (Cymbalta) 40 mg PO BID [facility] Last Admin: 01/23/19 08:12 Dose: 40 mg Hydroxyzine Pamoate (Vistaril) 50 mg PO Q8 PRN PRN Reason: Anxiety Last Admin: 01/04/19 16:39 Dose: 50 mg Levothyroxine Sodium (Synthroid) 88 mcg PO DAILY@0630 [facility] Last Admin: 01/23/19 06:02 Dose: 88 mcg Magnesium Hydroxide (Milk Of Magnesia) 30 ml PO HS PRN PRN Reason: Constipation Last Admin: 01/18/19 21:13 Dose: 30 ml Multivitamins/Minerals (Therapeutic-M Tab) 1 tab PO DAILY [facility] Last Admin: 01/23/19 08:14 Dose: 1 tab Sennosides (Senokot Tab) 8.6 mg PO BID [facility] Last Admin: 01/23/19 08:13 Dose: 8.6 mg Vitamin D (Vitamin D 400 Intl Units Tab) 400 intlu PO DAILY [facility] Last Admin: 01/23/19 08:14 Dose: 400 intlu Results - Vital Signs Recent Vital Signs: Last Vital Signs Temp 97.5 F L 01/23/19 05:53 Pulse 74 01/23/19 05:53 Resp 18 01/23/19 05:53 BP 117/73 01/23/19 05:53 Pulse Ox 95 01/22/19 09:25 - Labs Result Diagrams: 01/16/19 05:48 01/23/19 08:10 Labs: Laboratory Results - last 24 hr 01/23/19 08:10 Sodium 144 Potassium 3.8 Chloride 103 Carbon Dioxide 28 Anion Gap 17 BUN 14 Creatinine 1.1 Est GFR ( Amer) > 60 Est GFR (Non-Af Amer) > 60 Random Glucose 114 H Calcium 9.8 Total Bilirubin 0.4 AST 27 ALT 31 Alkaline Phosphatase 94 Total Protein 7.4 Albumin 4.2 Globulin 3.1 Albumin/Globulin Ratio 1.4 Assessment & Plan - Assessment and Plan (Free Text) Assessment: major depression recurrent severe with psychotic features Plan: continuation ect course will be started on 01/24/19 weekly ECT with continuous evaluation of patient mental status and symptoms and evaluation for any possible side effects
[2019-01-24] MEDS ORDERED: Propofol 10 mg/ml Inj (20 ML) ONE (07:57)
[2019-01-24] MEDS ORDERED: Succinylcholine 200 mg/10 ml Inj IV ONE (07:58)
[2019-01-24] MEDS ORDERED: Lactated Ringer's 1,000 ML IV ONE (08:00)
--- NOTE | 2019-01-24 09:12 | PCM.ECT ---
Electroconvulsive Therapy Note - Procedure: ECT Preprocedure Diagnosis: MAJOR DEPRESSV DISORDER, RECURRENT, SEVERE W PSYCH SYMPTOMS Court Ordered: No Current treatment number: 13 - Number of ECT this course Unilateral: 1 (unilateral) - Assessment/Plan Assessment: pt received first continuation ECT treatment/ total number 13 electrode placement / unilateral anaesthesia propofol 150 succinyl choline 100 charge 288 mc energy 70.4 j stat imped 1630 ohms dyn imped 282 ohms pulse width 0.50msec frequency 45 hz duration 8 sec current 800 ma seizure duration 32 sec vitals 126/75 HR 72 pulse oximetery 99 % pt tolerated treatment well no reported side effects of anesthesia next treatment January 31
[2019-01-24] MEDS: Levothyroxine 88 MCG TAB PO SCH (10:18)
[2019-01-24] MEDS: Multivitamin With Minerals Tab PO SCH (10:18)
[2019-01-24] MEDS: Cholecalciferol 400 Intl Units Tab PO SCH (10:19)
--- NOTE | 2019-01-24 10:27 | PCM.PYCHPN ---
Psychiatric Progress Note - Psychiatric Progress Note Patient seen today, length of contact: Pt evaluated, case discussed w/ team, chart reviewed Patient Chief Complaint: Depression Problems Identified/Issues Discussed: Patient had his 13th ECT today. He reports that his mood has been improving. He reports improved sleep/appetite and is more engaged in the community. No acute AH/VH/SI/HI. Medication Change: No Medical Record Reviewed: Yes Consults ordered or reviewed: Medicine consult, ECT medical clearance, Psychiatry consult with Dr. Martinez for ECT treatment Mental Status Examination - Cognitive Function Orientation: Person, Place, Situation, Time Memory: Intact Attention: WNL Concentration: WNL Association: [facility] Fund of Knowledge: [facility] Decription of patient's judgement and insights: Good I/J - Mood Mood: Depressed - Affect Affect: Constricted, Depressed - Speech Speech: Soft - Formal Thought Process Formal Thought Process: No Impairment Psychotic Thoughts and Behaviors: No AH/VH/paranoia/delusions - Suicidal Ideation Suicidal Ideation: No - Homicidal Ideation Homicidal Ideation: No Goal/Treatment Plan - Goal/Treatment Plan Need for Continued Stay: Remain at risks for inpatient hospitalization, Severe depression anxiety, Discharge may exacerbated symptoms Progress Toward Problem(s) and Goals/Treatment Plan: MDD w/ psychotic features vs Schizoaffective Disorder -Continue Cymbalta -Continue Clozapine; weekly CBC monitoring -Medicine consult -Individual and group therapy -Psychoeducation -Medical clearance for ECT completed -13th ECT procedure today -Disposition planning Estimated Date of D/C: 02/02/19
[2019-01-24 11:12] LABS: BASOPHIL 1 % (0-2); LYMPHOCYTE 19 % (20-50); MONOCYTE 9 % (0-10); NEUTROPHIL 66 % (42-75); PLATELET ESTIMATE NORMAL (NORMAL); REACTIVE LYMPHOCYTES 5 % (0-0); TOTAL CELLS COUNTED 100
[2019-01-24 11:14] LABS: ANISOCYTOSIS SLIGHT; GIANT PLATELETS PRESENT; PLATELET CLUMPS PRESENT
[2019-01-25] MEDS: Levothyroxine 88 MCG TAB PO SCH (05:52)
[2019-01-25] MEDS: Multivitamin With Minerals Tab PO SCH (08:20)
[2019-01-25] MEDS: Cholecalciferol 400 Intl Units Tab PO SCH (08:21)
--- NOTE | 2019-01-25 11:36 | PCM.PYCHPN ---
Psychiatric Progress Note - Psychiatric Progress Note Patient seen today, length of contact: Pt evaluated, case discussed w/ team, chart reviewed Patient Chief Complaint: Depression Problems Identified/Issues Discussed: Patient reports that he believes his depression is improving. He continues to sleep excessively in the morning, but reports that he has more energy in the afternoon and feels like he is isolating himself less. No acute AH/VH/SI/HI. Medication Change: No Medical Record Reviewed: Yes Consults ordered or reviewed: Medicine consult, ECT medical clearance, Psychiatry consult with Dr. Martinez for ECT treatment Mental Status Examination - Cognitive Function Orientation: Person, Place, Situation, Time Memory: Intact Attention: WNL Concentration: WNL Association: WNL Fund of Knowledge: [facility] Decription of patient's judgement and insights: Good I/J - Mood Mood: Depressed - Affect Affect: Constricted, Depressed - Speech Speech: Soft - Formal Thought Process Formal Thought Process: No Impairment Psychotic Thoughts and Behaviors: No AH/VH/paranoia/delusions - Suicidal Ideation Suicidal Ideation: No - Homicidal Ideation Homicidal Ideation: No Goal/Treatment Plan - Goal/Treatment Plan Need for Continued Stay: Remain at risks for inpatient hospitalization, Severe depression anxiety, Discharge may exacerbated symptoms Progress Toward Problem(s) and Goals/Treatment Plan: MDD w/ psychotic features vs Schizoaffective Disorder -Continue Cymbalta -Continue Clozapine; weekly CBC monitoring -Medicine consult -Individual and group therapy -Psychoeducation -Disposition planning Estimated Date of D/C: 02/02/19
[2019-01-26] MEDS: Levothyroxine 88 MCG TAB PO SCH (05:56)
[2019-01-26] MEDS: Multivitamin With Minerals Tab PO SCH (08:16)
[2019-01-26] MEDS: Cholecalciferol 400 Intl Units Tab PO SCH (08:18)
--- NOTE | 2019-01-26 08:56 | PCM.PYCHPN ---
Psychiatric Progress Note - Psychiatric Progress Note Patient seen today, length of contact: Pt evaluated, case discussed w/ team, chart reviewed Patient Chief Complaint: Depression Problems Identified/Issues Discussed: Patient seen in treatment team. He reports that his mood continues to improve gradually. He reports excessive sleeping during the day. +Normal appetite. No acute AH/VH/SI/HI. Next ECT scheduled for 01/31/19. Medication Change: No Medical Record Reviewed: Yes Consults ordered or reviewed: Medicine consult, ECT medical clearance, Psychiatry consult with Dr. Martinez for EC T treatment Mental Status Examination - Cognitive Function Orientation: Person, Place, Situation, Time Memory: Intact Attention: WNL Concentration: WNL Association: WNL Fund of Knowledge: [facility] Decription of patient's judgement and insights: Good I/J - Mood Mood: Depressed - Affect Affect: Constricted, Depressed - Speech Speech: Soft - Formal Thought Process Formal Thought Process: No Impairment Psychotic Thoughts and Behaviors: No AH/VH/paranoia/delusions - Suicidal Ideation Suicidal Ideation: No - Homicidal Ideation Homicidal Ideation: No Goal/Treatment Plan - Goal/Treatment Plan Need for Continued Stay: Remain at risks for inpatient hospitalization, Severe depression anxiety, Discharge may exacerbated symptoms Progress Toward Problem(s) and Goals/Treatment Plan: MDD w/ psychotic features vs Schizoaffective Disorder -Continue Cymbalta -Continue Clozapine; weekly CBC monitoring -Medicine consult -Individual and group therapy -Psychoeducation -Disposition planning Estimated Date of D/C: 02/02/19
[2019-01-27] MEDS: Levothyroxine 88 MCG TAB PO SCH (05:48)
[2019-01-27] MEDS: Multivitamin With Minerals Tab PO SCH (08:35)
[2019-01-27] MEDS: Cholecalciferol 400 Intl Units Tab PO SCH (08:36)
--- NOTE | 2019-01-27 14:19 | PCM.PYCHPN ---
Psychiatric Progress Note - Psychiatric Progress Note Patient seen today, length of contact: Pt evaluated, case discussed w/ team, chart reviewed Patient Chief Complaint: I feel a little better Problems Identified/Issues Discussed: pt evaluated seen in bed . reported little improvement in mood affect less constricted, CONTINUES TO HAVE EPISODES OF INCREASED ANXIETY no changes on sleep or appetite, no active thoughts of self harm on the unit DSM 5 Symptoms Update: major depression with psychotic features OCD Medication Change: No Medical Record Reviewed: Yes Mental Status Examination - Cognitive Function Orientation: Person, Place, Situation, Time Memory: Intact Attention: WNL Concentration: WNL Association: WNL Fund of Knowledge: WNL - Mood Mood: Depressed - Affect Affect: Constricted, Depressed - Speech Speech: Soft - Formal Thought Process Formal Thought Process: No Impairment - Suicidal Ideation Suicidal Ideation: No - Homicidal Ideation Homicidal Ideation: No Goal/Treatment Plan - Goal/Treatment Plan Need for Continued Stay: Remain at risks for inpatient hospitalization, Severe depression anxiety, Discharge may exacerbated symptoms Progress Toward Problem(s) and Goals/Treatment Plan: continue with clozaril and cymbalta [facility] Estimated Date of D/C: 02/02/19
[2019-01-28] MEDS: Levothyroxine 88 MCG TAB PO SCH (05:37)
[2019-01-28] MEDS: Cholecalciferol 400 Intl Units Tab PO SCH (08:26)
[2019-01-28] MEDS: Multivitamin With Minerals Tab PO SCH (08:27)
--- NOTE | 2019-01-28 10:34 | PCM.PYCHPN ---
Psychiatric Progress Note - Psychiatric Progress Note Patient seen today, length of contact: Pt evaluated, case discussed w/ team, chart reviewed Patient Chief Complaint: I still get anxious at times Problems Identified/Issues Discussed: pt evaluated seen in bed . reported little improvement in mood affect less constricted, continues to report episodes of increased anxiety , no changes on sleep or appetite, no active thoughts of self harm on the unit DSM 5 Symptoms Update: major depression severe OCD Medication Change: No Medical Record Reviewed: Yes Mental Status Examination - Cognitive Function Orientation: Person, Place, Situation, Time Memory: Intact Attention: WNL Concentration: WNL Association: WNL Fund of Knowledge: WNL - Mood Mood: Depressed - Affect Affect: Constricted, Depressed - Speech Speech: Soft - Formal Thought Process Formal Thought Process: No Impairment - Suicidal Ideation Suicidal Ideation: No - Homicidal Ideation Homicidal Ideation: No Goal/Treatment Plan - Goal/Treatment Plan Need for Continued Stay: Remain at risks for inpatient hospitalization, Severe depression anxiety, Discharge may exacerbated symptoms Progress Toward Problem(s) and Goals/Treatment Plan: continue with clozaril and cymbalta [facility] Estimated Date of D/C: 02/02/19
[2019-01-28] MEDS: Bisacodyl 5mg EC Tab PO PRN (16:15)
--- NOTE | 2019-01-28 18:30 | PCM.BM ---
Treatment Plan Problems - Problems identified on initial assessmt Suicidal Ideation Date Initiated: 12/08/18 Time Initiated: 04:23 Assessment reference: NA Status: Active Priority: 1 Self Harm Date Initiated: 12/08/18 Time Initiated: 04:24 Assessment reference: NA Status: Active Priority: 2 Altered Sleep Date Initiated: 12/08/18 Time Initiated: 04:25 Assessment reference: NA Status: Active Priority: 3 Hopelessness/Helplessness Date Initiated: 12/08/18 Time Initiated: 04:26 Assessment reference: NA Status: Active Priority: 4 Feelings of Worthlessness Date Initiated: 12/08/18 Time Initiated: 04:26 Assessment reference: NA Status: Active Priority: 5 Knowledge Deficit of ECT Date Initiated: 12/26/18 Time Initiated: 20:36 Assessment reference: NA Status: Active Anxiety r/t ECT therapy Date Initiated: 12/26/18 Time Initiated: 20:36 Assessment reference: NA Status: Active Potential for Injury Post ECT Date Initiated: 12/26/18 Time Initiated: 20:37 Assessment reference: NA Status: Active Altered Memory and Orientation Date Initiated: 12/26/18 Time Initiated: 20:37 Assessment reference: NA Status: Active Treatment assets and liabiliti Patient Assests: adapts well, cooperative, educated, insightful, motivated, ADL independent, negotiates basic needs, good past tx response Patient Liabilities: financial problems, poor support system - Milieu Protocol Maintain good personal hygiene: daily Encourage regular showers, daily Remind patient to perform daily oral care, daily Assist patient to perform ADL's Conduct patient checks and document Observation sheet: Q15 minutes Maintain personal safety: every shift Educate patient to report safety concerns to staff, every shift Monitor environment for contraband/sharps Medication safety: Monitor for expected outcome, potential side effects: every shift, Assess barriers to learning: every shift, Assess readiness for medication education: every shift Milieu Narrative: continue with clozaril and cymbalta [facility] Family Contact Family involvement: Famliy/SO not involved - Outside Agency SERV Residential Care involvment: Information-sharing Agency contact name: JESSICA Ferrer Agency contact number: [phone] [place] [facility] Care involvment: Information-sharing Agency contact name: Dr. Arrieta, Ph.D Agency contact number: [phone] - Goals for Treatment Patient goals for treatment: Pt will imporve overall mood. Pt will be free of suicide thoughts. Pt will develop strategies for thought distraction when ruminating ont he past. Pt will develop strategies to reduce symptoms of anxiety. Discharge/Continuing Care - Education Needs Education Needs: Patient Medication, Patient Diagnosis/Disease Process, Patient Coping Skills, Patient Community resources, Patient Activities of Daily Living, Patient Uses of Medical Equipment, Patient Health Practices/Safety, Patient Personal Hygiene/Grooming, Patient Aftercare Safety Plan - Discharge Discharge Criteria: Tolerates medication w/o severe side effects, Free of Suicidal thoughts, Normal sleep pattern, Ability to care for self, Reduction of target symptoms, Other (Decreased depression and anxiety) Discharge to:: Detention - Additional Comments 12/08/18 12:40 Pt seen and discussed in team meeting. Reason for hospitalization reviewed and discussed. Pt reported he was referred to the ED by his [facility] rn case mgr, Tre Burk secondary to increased fatigue and difficulty breathing. Pt reported that he was started on Clozaril and is uncertain if it's causing him to feel increasingly fatigue. Pt reported that while in the emergency room he felt hopeless. Pt stated 'I have no hope to hold on to." Pt reported that once he returns to his apartment he feels horrible and hopeless. Pt reported feeling increasingly depressed and suicide ideation with plan to jump in front of the [employer]. Pt reported he last attempted end of September/beginning of October by jumping in front of the train; however, the train stopped and he was pulled out of the tracks and hospitalized at [facility]. Pt reported that he feels depressed and anxious. Pt reported that he is scheduled to start PHP at [facility] on 12/12/2018. Stack Yield Engineer informed pt that a telephone call will be made to re-schedule appointment. Pt verbalized agreement and understanding of same. Pt reported that his only support system is rn case mgr at [facility], Tania Burk. Pt signed consent for consumer loan underwriter to speak to rn case mgr. Pt's medical and social issues reviewed and discussed. Pt's medications reviewed by Dr. Samuels and discussed with pt. Pt verbalized agreement to medication recommendations and adjustment. Tx plan reviewed and discussed with pt. Pt agreeable to medication change per clinical presentation. ECT discussed with pt and verbalized interest in treatment. Dr. Samuels informed pt that another psychiatrist, Dr. Juan MD will be speaking to him to review ECT treatment. Pt verbalized agreement. SW to continue to follow case. - Treatment Team Participation Patient/Family/SO Statement: continue with clozaril and cymbalta ECT [facility]ERAPY Discussed with Family/SO: No Was Patient/Family/SO present at Treatment Team Meeting: Yes Treatment Plan Review - Problem Suicidal Ideation Date Initiated: 12/08/18 Time Initiated: 04:23 Progress toward outcomes: unchanged (Pt continues to verbalized on and off suicide ideation. Pt reported feeling safe on the unit and contracted for safety.) Self Harm Date Initiated: 12/08/18 Time Initiated: 04:24 Progress toward outcomes: resolved (Pt reported no self-injurious bx's.) Altered Sleep Date Initiated: 12/08/18 Time Initiated: 04:25 Progress toward outcomes: resolved (Pt reported improvement in sleep pattern.) Hopelessness/Helplessness Date Initiated: 12/08/18 Time Initiated: 04:26 Progress toward outcomes: improved (Pt reported feeling less hopeless and helpless.) Feelings of Worthlessness Date Initiated: 12/08/18 Time Initiated: 04:26 Progress toward outcomes: improved Knowledge Deficit of ECT Date Initiated: 12/29/18 Time Initiated: 20:36 Progress toward outcomes: resolved (Pt is aware of ECT procedure and consented to tx.) Anxiety r/t ECT therapy Date Initiated: 12/29/18 Time Initiated: 20:36 Progress toward outcomes: unchanged (Pt continues to verbalize feelings of anxiety.) Potential for Injury Post ECT Date Initiated: 12/29/18 Time Initiated: 20:37 Progress toward outcomes: unchanged Altered Memory and Orientation Date Initiated: 12/29/18 Time Initiated: 20:37 Progress toward outcomes: resolved (Pt continues to present with intact cognitive and memory abilities.) - Discharge / Continuing Care Discharge to:: Detention Behavioral Health Services: Partial hospital Health Needs: Follow up care/test, Doctor appointments (Pt seen in treatment team for review on 01/26/19. Pt reported he was "so-so." Pt offered no questions or complaints regarding treatment, ECT or discharge. Last inpatient ECT treatment for 01/31 discussed with likely discharge later next week. Pt reported sleep is "ok." Pt denied SI/HI and AVT hallucinations. ), Medications/Rx
--- NOTE | 2019-01-29 02:21 | CP.PCM.PN ---
Subjective - Date & Time of Evaluation Date of Evaluation: 01/28/19 Time of Evaluation: 14:50 - Subjective Subjective: Pt seen and assessed at bedside. No new complaints, reports mild improvement in mood with ECT. Medically stable at this time. Review of Systems - Review of Systems Review of Systems: reviewed and no additional remarkable complaints. Objective - Vital Signs/Intake and Output Vital Signs (last 24 hours): Temp Pulse Resp BP Pulse Ox 98.2 F 66 18 115/72 98 01/28/19 15:45 01/28/19 15:45 01/28/19 15:45 01/28/19 15:45 01/24/19 09:50 - Medications Medications: Current Medications Acetaminophen (Tylenol 325mg Tab) 650 mg PO Q4 PRN PRN Reason: Pain (4-7) Last Admin: 01/03/19 10:04 Dose: 650 mg Al Hydrox/Mg Hydrox/Simethicone (Maalox Plus 30 Ml) 30 ml PO Q4 PRN PRN Reason: Dyspepsia Atorvastatin Calcium (Lipitor) 40 mg PO [facility] Last Admin: 01/28/19 21:06 Dose: 40 mg Bisacodyl (Dulcolax) 5 mg PO DAILY PRN PRN Reason: Constipation Last Admin: 01/28/19 16:15 Dose: 5 mg Clozapine (Clozaril) 300 mg PO [facility] Last Admin: 01/28/19 21:06 Dose: 300 mg Diphenhydramine HCl (Benadryl) 50 mg PO Q6 PRN PRN Reason: Extrapyramidal Symptoms Docusate Sodium (Colace) 100 mg PO BID [facility] Last Admin: 01/28/19 16:16 Dose: 100 mg Duloxetine HCl (Cymbalta) 40 mg PO BID [facility] Last Admin: 01/28/19 16:14 Dose: 40 mg Hydroxyzine Pamoate (Vistaril) 50 mg PO Q8 PRN PRN Reason: Anxiety Last Admin: 01/04/19 16:39 Dose: 50 mg Levothyroxine Sodium (Synthroid) 88 mcg PO DAILY@0630 [facility] Last Admin: 01/28/19 05:37 Dose: 88 mcg Magnesium Hydroxide (Milk Of Magnesia) 30 ml PO HS PRN PRN Reason: Constipation Last Admin: 01/18/19 21:13 Dose: 30 ml Multivitamins/Minerals (Therapeutic-M Tab) 1 tab PO DAILY [facility] Last Admin: 01/28/19 08:27 Dose: 1 tab Sennosides (Senokot Tab) 8.6 mg PO BID [facility] Last Admin: 01/28/19 16:15 Dose: 8.6 mg Vitamin D (Vitamin D 400 Intl Units Tab) 400 intlu PO DAILY [facility] Last Admin: 01/28/19 08:26 Dose: 400 intlu - Labs Labs: 01/24/19 04:45 01/24/19 04:45 PT 12.3 Seconds (9.8-13.1) 12/07/18 18:37 INR 1.1 12/07/18 18:37 APTT 32.2 Seconds (25.6-37.1) 12/07/18 18:37 - Head Exam Head Exam: ATRAUMATIC, NORMAL INSPECTION, NORMOCEPHALIC - Eye Exam Eye Exam: EOMI, Normal appearance, PERRL Pupil Exam: NORMAL ACCOMODATION, PERRL - ENT Exam ENT Exam: Mucous Membranes Moist - Neck Exam Neck Exam: Full ROM, Normal Inspection - Respiratory Exam Respiratory Exam: Clear to Ausculation Bilateral - Cardiovascular Exam Cardiovascular Exam: REGULAR RHYTHM, +S1, +S2 - GI/Abdominal Exam GI & Abdominal Exam: Soft, Normal Bowel Sounds - Extremities Exam Extremities Exam: Full ROM, Normal Capillary Refill, Normal Inspection - Back Exam Back Exam: NORMAL INSPECTION - Neurological Exam Neurological Exam: Alert, Awake, Oriented x3 Neuro motor strength exam: Left Upper Extremity: 5, Right Upper Extremity: 5, Left Lower Extremity: 5, Right Lower Extremity: 5 - Psychiatric Exam Psychiatric exam: Depressed - Skin Skin Exam: Dry, Pallor, Warm Assessment and Plan (1) Depression Assessment & Plan: 1.) Depression -Pt undergoes ECT weekly. -No new complaints. -Medically stable at this time. -Lipid panel ordered; pt on Atorvastatin for hyperlipidemia. -Continue current tx. Status: Acute
[2019-01-29 05:38] LABS: BASO % 0.5 % (0.0-2.0); EOS % 0.3 % (0.0-4.0); HEMOGLOBIN 14.1 g/dL (12.0-18.0); LYMPH # 1.7 K/uL (1.0-4.3); LYMPH % 27.1 % (20.0-40.0); MEAN CORPUSCULAR HGB CONC 33.7 g/dL (33.0-37.0); MEAN PLATELET VOLUME 8.5 fl (7.2-11.7); MONO # 1.4 K/uL (0.0-0.8); MONO % 22.1 % (0.0-10.0); NEUT # 3.2 K/uL (1.8-7.0); NRBC % 0.1 % (0.0-0.0); PLATELET COUNT 331 K/uL (130-400); RBC 4.84 Mil/uL (4.40-5.90); RED CELL DISTRIBUTION WIDTH 14.7 % (11.5-14.5); WHITE BLOOD COUNT 6.4 K/uL (4.8-10.8)
[2019-01-29] MEDS: Levothyroxine 88 MCG TAB PO SCH (05:48)
[2019-01-29 05:55] LABS: ALB/GLOB RATIO 1.4 (1.0-2.1); ALT/SGPT 34 U/L (21-72); AST/SGOT 21 U/L (17-59); BLOOD UREA NITROGEN 13 mg/dl (9-20); CALCIUM 9.4 mg/dL (8.4-10.2); GFR NON-AFRICAN AMERICAN > 60; HDL CHOLESTEROL 45 MG/DL (30-70)
[2019-01-29 06:06] LABS: LDL CHOLESTEROL 84 mg/dL (0-129)
[2019-01-29] MEDS: Cholecalciferol 400 Intl Units Tab PO SCH (08:25)
[2019-01-29] MEDS: Multivitamin With Minerals Tab PO SCH (08:25)
[2019-01-29 11:13] LABS: EOSINOPHIL 2 % (0-7); LYMPHOCYTE 29 % (20-50); MONOCYTE 19 % (0-10); NEUTROPHIL 45 % (42-75); REACTIVE LYMPHOCYTES 5 % (0-0); TOTAL CELLS COUNTED 100
[2019-01-29 11:14] LABS: PLATELET ESTIMATE NORMAL (NORMAL)
--- NOTE | 2019-01-29 12:14 | PCM.PYCHPN ---
Psychiatric Progress Note - Psychiatric Progress Note Patient seen today, length of contact: Pt evaluated, case discussed w/ team, chart reviewed Patient Chief Complaint: Depression Problems Identified/Issues Discussed: Patient reports feeling anxious. He continues to have feelings of low energy and motivation. He denies acute suicidal ideation/plan/intent. +Normal appetite. No acute AH/VH/SI/HI. Next ECT scheduled for 01/31/19. Medication Change: No Medical Record Reviewed: Yes Consults ordered or reviewed: Medicine consult, ECT medical clearance, Psychiatry consult with Dr. Martinez for ECT treatment Mental Status Examination - Cognitive Function Orientation: Person, Place, Situation, Time Memory: Intact Attention: WNL Concentration: WNL Association: WNL Fund of Knowledge: WN Decription of patient's judgement and insights: Improving I/J - Mood Mood: Depressed, Anxious - Affect Affect: Constricted, Depressed - Speech Speech: Soft - Formal Thought Process Formal Thought Process: No Impairment Psychotic Thoughts and Behaviors: Denies AH/VH/paranoia/delusions - Suicidal Ideation Suicidal Ideation: No - Homicidal Ideation Homicidal Ideation: No Goal/Treatment Plan - Goal/Treatment Plan Need for Continued Stay: Remain at risks for inpatient hospitalization, Severe depression anxiety, Discharge may exacerbated symptoms Progress Toward Problem(s) and Goals/Treatment Plan: MDD w/ psychotic features vs Schizoaffective Disorder -Continue Cymbalta -Continue Clozapine; weekly CBC monitoring -Medicine consult -Individual and group therapy -Psychoeducation -ECT scheduled for 01/31/19 -Disposition planning Estimated Date of D/C: 02/02/19
[2019-01-30] MEDS: Levothyroxine 88 MCG TAB PO SCH (06:06)
[2019-01-30 06:23] LABS: BASO % 0.7 % (0.0-2.0); EOS % 0.5 % (0.0-4.0); HEMOGLOBIN 14.4 g/dL (12.0-18.0); LYMPH # 1.6 K/uL (1.0-4.3); MEAN CELL VOLUME 86.9 fl (80.0-94.0); MEAN CORPUSCULAR HEMOGLOBIN 29.3 pg (27.0-31.0); MEAN CORPUSCULAR HGB CONC 33.7 g/dL (33.0-37.0); MEAN PLATELET VOLUME 8.7 fl (7.2-11.7); MONO # 1.2 K/uL (0.0-0.8); MONO % 19.4 % (0.0-10.0); NEUT # 3.4 K/uL (1.8-7.0); NEUT % 54.4 % (50.0-75.0); NRBC % 0.1 % (0.0-0.0); RBC 4.91 Mil/uL (4.40-5.90); RED CELL DISTRIBUTION WIDTH 14.8 % (11.5-14.5); WHITE BLOOD COUNT 6.3 K/uL (4.8-10.8)
[2019-01-30] MEDS: Multivitamin With Minerals Tab PO SCH (08:21)
[2019-01-30] MEDS: Cholecalciferol 400 Intl Units Tab PO SCH (08:21)
--- NOTE | 2019-01-30 12:33 | PCM.PYCHPN ---
Psychiatric Progress Note - Psychiatric Progress Note Patient seen today, length of contact: Pt evaluated, case discussed w/ team, chart reviewed Patient Chief Complaint: Depression Problems Identified/Issues Discussed: Patient reports feeling anxious w/ recurrent negative thoughts and low energy. He denies acute suicidal ideation/plan/intent. +Normal appetite. No acute AH/VH/SI/HI. Next ECT scheduled for 01/31/19. Medication Change: No Medical Record Reviewed: Yes Consults ordered or reviewed: Medicine consult, ECT medical clearance, Psychiatry consult with Dr. Martinez for ECT treatment Mental Status Examination - Cognitive Function Orientation: Person, Place, Situation, Time Memory: Intact Attention: WNL Concentration: WNL Association: WNL Fund of Knowledge: WN Decription of patient's judgement and insights: Improving I/J - Mood Mood: Depressed, Anxious - Affect Affect: Constricted, Depressed - Speech Speech: Soft - Formal Thought Process Formal Thought Process: No Impairment Psychotic Thoughts and Behaviors: Denies AH/VH/paranoia/delusions - Suicidal Ideation Suicidal Ideation: No - Homicidal Ideation Homicidal Ideation: No Goal/Treatment Plan - Goal/Treatment Plan Need for Continued Stay: Remain at risks for inpatient hospitalization, Severe depression anxiety, Discharge may exacerbated symptoms Progress Toward Problem(s) and Goals/Treatment Plan: MDD w/ psychotic features vs Schizoaffective Disorder -Continue Cymbalta -Continue Clozapine; weekly CBC monitoring -Medicine consult -Individual and group therapy -Psychoeducation -ECT scheduled for 01/31/19 -Disposition planning Estimated Date of D/C: 02/02/19
[2019-01-31] MEDS ORDERED: Propofol 10 mg/ml Inj (20 ML) ONE (08:21)
[2019-01-31] MEDS ORDERED: Lactated Ringer's 500 ML IV ONE (08:37)
[2019-01-31] MEDS: Levothyroxine 88 MCG TAB PO SCH (09:56)
[2019-01-31] MEDS: Cholecalciferol 400 Intl Units Tab PO SCH (09:57)
[2019-01-31] MEDS: Multivitamin With Minerals Tab PO SCH (09:57)
--- NOTE | 2019-01-31 09:59 | PCM.ECT ---
Electroconvulsive Therapy Note - Procedure: ECT Preprocedure Diagnosis: MAJOR DEPRESSV DISORDER, RECURRENT, SEVERE W PSYCH SYMPTOMS Court Ordered: No Current treatment number: 14 - Number of ECT this course Unilateral: 2 (unilateral/2) - Assessment/Plan Assessment: pt received treatment 14/ continuation ECT 2 ANESTHESIA/ PROPOFOL 150 SUCCINYL CHOLINE 100 Electrode placement / unilateral charge/ 288 mc energy/49.5j stat imp/213 ohms dnamic ohms pulse width0.5 msec freq 45 hz duration 8.00 sec current 800ma seizure duration 31 sec BP/148/75 HR '88 Pulse oxi/ 99 % pt tolerated anaesthesia and treatment procedure well, no reported complications next treatment 02/07/19 Medication Plan: succinylcholine, propofol
--- NOTE | 2019-01-31 10:40 | PCM.PYCHPN ---
Psychiatric Progress Note - Psychiatric Progress Note Patient seen today, length of contact: Pt evaluated, case discussed w/ team, chart reviewed Patient Chief Complaint: Depression Problems Identified/Issues Discussed: Patient reports that he continues to feel anxious and he discussed his negative thoughts which trigger his anxiety and led him to attempt suicide prior to his admission. He is able to contract for safety at this time. We discussed coping strategies to deal with his anxiety and his cognitive distortions. He continues to have low energy, especially in the morning. +Normal appetite. No acute AH/VH/SI/HI. Medication Change: No Medical Record Reviewed: Yes Consults ordered or reviewed: Medicine consult, ECT medical clearance, Psychiatry consult with Dr. Martinez for EC T treatment Mental Status Examination - Cognitive Function Orientation: Person, Place, Situation, Time Memory: Intact Attention: WNL Concentration: WNL Association: WNL Fund of Knowledge: WN Decription of patient's judgement and insights: Improving I/J - Mood Mood: Depressed, Anxious - Affect Affect: Constricted, Depressed - Speech Speech: Soft - Formal Thought Process Formal Thought Process: No Impairment Psychotic Thoughts and Behaviors: Denies AH/VH/paranoia/delusions - Suicidal Ideation Suicidal Ideation: No - Homicidal Ideation Homicidal Ideation: No Goal/Treatment Plan - Goal/Treatment Plan Need for Continued Stay: Remain at risks for inpatient hospitalization, Severe depression anxiety, Discharge may exacerbated symptoms Progress Toward Problem(s) and Goals/Treatment Plan: MDD w/ psychotic features vs Schizoaffective Disorder -Continue Cymbalta -Continue Clozapine; weekly CBC monitoring -Will continue to monitor for safety -Medicine consult -Individual and group therapy -Psychoeducation -Disposition planning Estimated Date of D/C: 02/05/19
[2019-01-31 10:41] VITALS: O2SAT 95
[2019-02-01] MEDS: Levothyroxine 88 MCG TAB PO SCH (06:05)
[2019-02-01] MEDS: Multivitamin With Minerals Tab PO SCH (08:29)
[2019-02-01] MEDS: Cholecalciferol 400 Intl Units Tab PO SCH (08:30)
--- NOTE | 2019-02-01 11:20 | PCM.PYCHPN ---
Psychiatric Progress Note - Psychiatric Progress Note Patient seen today, length of contact: Pt evaluated, case discussed w/ team, chart reviewed Patient Chief Complaint: Depression Problems Identified/Issues Discussed: Patient continues to feel anxious about being discharged. He discussed his concerns about some past activities he engaged in. He is able to contract for safety at this time. We discussed coping strategies to deal with his anxiety and his cognitive distortions. He continues to have low energy, especially in the morning. +Normal appetite. No acute AH/VH/SI/HI. Medication Change: No Medical Record Reviewed: Yes Consults ordered or reviewed: Medicine consult, ECT medical clearance, Psychiatry consult with Dr. Martinez for ECT treatment Mental Status Examination - Cognitive Function Orientation: Person, Place, Situation, Time Memory: Intact Attention: WNL Concentration: WNL Association: WNL Fund of Knowledge: WNL Decription of patient's judgement and insights: Improving I/J - Mood Mood: Depressed, Anxious - Affect Affect: Constricted, Depressed - Speech Speech: Soft - Formal Thought Process Formal Thought Process: No Impairment Psychotic Thoughts and Behaviors: Denies AH/VH/paranoia/delusions - Suicidal Ideation Suicidal Ideation: No - Homicidal Ideation Homicidal Ideation: No Goal/Treatment Plan - Goal/Treatment Plan Need for Continued Stay: Remain at risks for inpatient hospitalization, Severe depression anxiety, Discharge may exacerbated symptoms Progress Toward Problem(s) and Goals/Treatment Plan: MDD w/ psychotic features vs Schizoaffective Disorder -Continue Cymbalta -Continue Clozapine; weekly CBC monitoring -Will continue to monitor for safety -Medicine consult -Individual and group therapy -Psychoeducation -Disposition planning Estimated Date of D/C: 02/05/19
[2019-02-02] MEDS: Levothyroxine 88 MCG TAB PO SCH (05:50)
[2019-02-02] MEDS: Cholecalciferol 400 Intl Units Tab PO SCH (08:42)
[2019-02-02] MEDS: Multivitamin With Minerals Tab PO SCH (08:42)
--- NOTE | 2019-02-02 12:12 | PCM.PYCHPN ---
Psychiatric Progress Note - Psychiatric Progress Note Patient seen today, length of contact: Pt evaluated, case discussed w/ team, chart reviewed Patient Chief Complaint: Depression Problems Identified/Issues Discussed: Patient reports that his mood is improving. He has brighter affect and is more engaged in the community. He reports normal appetite and states that his energy level is increasing. He continues to feel anxious about being discharged; but is able to contract for safety and denies acute AH/VH/SI/HI. Medication Change: No Medical Record Reviewed: Yes Consults ordered or reviewed: Medicine consult, ECT medical clearance, Psychiatry consult with Dr. Martinez for ECT treatment Mental Status Examination - Cognitive Function Orientation: Person, Place, Situation, Time Memory: Intact Attention: WNL Concentration: WNL Association: WNL Fund of Knowledge: WNL Decription of patient's judgement and insights: Improving I/J - Mood Mood: Anxious - Affect Affect: Constricted - Speech Speech: Soft - Formal Thought Process Formal Thought Process: No Impairment Psychotic Thoughts and Behaviors: Denies AH/VH/paranoia/delusions - Suicidal Ideation Suicidal Ideation: No - Homicidal Ideation Homicidal Ideation: No Goal/Treatment Plan - Goal/Treatment Plan Need for Continued Stay: Remain at risks for inpatient hospitalization, Severe depression anxiety, Discharge may exacerbated symptoms Progress Toward Problem(s) and Goals/Treatment Plan: MDD w/ psychotic features vs Schizoaffective Disorder -Continue Cymbalta -Continue Clozapine; weekly CBC monitoring -Will continue to monitor for safety -Medicine consult -Individual and group therapy -Psychoeducation -Disposition planning- likely discharge on Tuesday is patient continues to improve clinically Estimated Date of D/C: 02/05/19
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
[2019-02-03] MEDS: Levothyroxine 88 MCG TAB PO SCH (06:25)
[2019-02-03] MEDS: Cholecalciferol 400 Intl Units Tab PO SCH (08:37)
--- NOTE | 2019-02-03 09:40 | PCM.PYCHPN ---
Psychiatric Progress Note - Psychiatric Progress Note Patient seen today, length of contact: Pt evaluated, case discussed w/ team, chart reviewed Patient Chief Complaint: Depression Problems Identified/Issues Discussed: Patient reports that his mood is good. He has full range of affect. He has improved significantly since admission w/ treatment w/ ECT. He reports that his energy level continues to improve. NO AH/VH/SI/HI. We discussed likely discharge Tuesday as patient continues to improve clinically. Medication Change: No Medical Record Reviewed: Yes Consults ordered or reviewed: Medicine consult, ECT medical clearance, Psychiatry consult with Dr. Martinez for ECT treatment Mental Status Examination - Cognitive Function Orientation: Person, Place, Situation, Time Memory: Intact Attention: WNL Concentration: WNL Association: WNL Fund of Knowledge: [facility] Decription of patient's judgement and insights: Good I/J - Mood Mood: Anxious - Affect Affect: Broad - Speech Speech: Appropriate - Formal Thought Process Formal Thought Process: No Impairment Psychotic Thoughts and Behaviors: Denies AH/VH/paranoia/delusions - Suicidal Ideation Suicidal Ideation: No - Homicidal Ideation Homicidal Ideation: No Goal/Treatment Plan - Goal/Treatment Plan Need for Continued Stay: Severe depression anxiety, Discharge may exacerbated symptoms Progress Toward Problem(s) and Goals/Treatment Plan: MDD w/ psychotic features vs Schizoaffective Disorder -Continue Cymbalta -Continue Clozapine; weekly CBC monitoring -Medicine consult -Individual and group therapy -Psychoeducation -Disposition planning- likely discharge on Tuesday Estimated Date of D/C: 02/05/19
[2019-02-03] MEDS: Multivitamin With Minerals Tab PO SCH (10:25)
[2019-02-04] MEDS: Levothyroxine 88 MCG TAB PO SCH (06:17)
[2019-02-04] MEDS: Multivitamin With Minerals Tab PO SCH (08:49)
[2019-02-04] MEDS: Cholecalciferol 400 Intl Units Tab PO SCH (08:50)
--- NOTE | 2019-02-04 10:11 | PCM.PYCHPN ---
Psychiatric Progress Note - Psychiatric Progress Note Patient seen today, length of contact: Pt evaluated, case discussed w/ team, chart reviewed Patient Chief Complaint: "I'm feeling better." Problems Identified/Issues Discussed: No new events overnight. Patient reports that his mood is good. He has full range of affect. He has improved significantly since admission w/ treatment w/ ECT. NO AH/VH/SI/HI. Patient to be discharged tomorrow. Medication Change: No Medical Record Reviewed: Yes Consults ordered or reviewed: Medicine consult, ECT medical clearance, Psychiatry consult with Dr. Martinez for ECT treatment Mental Status Examination - Cognitive Function Orientation: Person, Place, Situation, Time Memory: Intact Attention: WNL Concentration: WNL Association: WN Fund of Knowledge: [facility] Decription of patient's judgement and insights: Good I/J - Mood Mood: Neutral - Affect Affect: Broad - Speech Speech: Appropriate - Formal Thought Process Formal Thought Process: No Impairment Psychotic Thoughts and Behaviors: Denies AH/VH/paranoia/delusions - Suicidal Ideation Suicidal Ideation: No - Homicidal Ideation Homicidal Ideation: No Goal/Treatment Plan - Goal/Treatment Plan Progress Toward Problem(s) and Goals/Treatment Plan: MDD w/ psychotic features vs Schizoaffective Disorder -Continue Cymbalta -Continue Clozapine; weekly CBC monitoring -Medicine consult -Individual and group therapy -Psychoeducation -Disposition planning- patient to be discharged tomorrow Estimated Date of D/C: 02/05/19
--- NOTE | 2019-02-04 17:27 | CP.PCM.PN ---
Subjective - Date & Time of Evaluation Date of Evaluation: 02/02/19 Time of Evaluation: 11:00 - Subjective Subjective: Patient remains stable Has no chest pain or SOB. Doing well with ECT. Has nasal congestion. Objective - Vital Signs/Intake and Output Vital Signs (last 24 hours): Temp Pulse Resp BP Pulse Ox 98.2 F 69 19 110/68 95 02/04/19 15:32 02/04/19 15:32 02/04/19 15:32 02/04/19 15:32 01/31/19 09:20 - Medications Medications: Current Medications Acetaminophen (Tylenol 325mg Tab) 650 mg PO Q4 PRN PRN Reason: Pain (4-7) Stop: 02/05/19 07:30 Last Admin: 01/03/19 10:04 Dose: 650 mg Al Hydrox/Mg Hydrox/Simethicone (Maalox Plus 30 Ml) 30 ml PO Q4 PRN PRN Reason: Dyspepsia Stop: 02/05/19 07:30 Atorvastatin Calcium (Lipitor) 40 mg PO [facility] Last Admin: 02/03/19 21:54 Dose: 40 mg Bisacodyl (Dulcolax) 5 mg PO DAILY PRN PRN Reason: Constipation Last Admin: 01/28/19 16:15 Dose: 5 mg Clozapine (Clozaril) 300 mg PO [facility] Last Admin: 02/03/19 21:37 Dose: 300 mg Diphenhydramine HCl (Benadryl) 50 mg PO Q6 PRN PRN Reason: Extrapyramidal Symptoms Stop: 02/05/19 07:30 Docusate Sodium (Colace) 100 mg PO BID [facility] Last Admin: 02/04/19 16:50 Dose: 100 mg Duloxetine HCl (Cymbalta) 40 mg PO BID [facility] Last Admin: 02/04/19 16:50 Dose: 40 mg Fluticasone Propionate (Flonase) 1 spr THA BID [facility] Last Admin: 02/04/19 16:50 Dose: Not Given Hydroxyzine Pamoate (Vistaril) 50 mg PO Q8 PRN PRN Reason: Anxiety Stop: 02/05/19 07:30 Last Admin: 01/04/19 16:39 Dose: 50 mg Levothyroxine Sodium (Synthroid) 88 mcg PO DAILY@0630 [facility] Last Admin: 02/04/19 06:17 Dose: 88 mcg Magnesium Hydroxide (Milk Of Magnesia) 30 ml PO HS PRN PRN Reason: Constipation Stop: 02/05/19 07:30 Last Admin: 01/18/19 21:13 Dose: 30 ml Multivitamins/Minerals (Therapeutic-M Tab) 1 tab PO DAILY [facility] Last Admin: 02/04/19 08:49 Dose: 1 tab Sennosides (Senokot Tab) 8.6 mg PO BID [facility] Last Admin: 02/04/19 16:50 Dose: 8.6 mg Vitamin D (Vitamin D 400 Intl Units Tab) 400 intlu PO DAILY [facility] Last Admin: 02/04/19 08:50 Dose: 400 intlu - Labs Labs: 01/30/19 06:00 01/29/19 05:10 PT 12.3 Seconds (9.8-13.1) 12/07/18 18:37 INR 1.1 12/07/18 18:37 APTT 32.2 Seconds (25.6-37.1) 12/07/18 18:37 - Head Exam Head Exam: NORMAL INSPECTION - Eye Exam Eye Exam: Normal appearance - ENT Exam ENT Exam: Mucous Membranes Moist - Respiratory Exam Respiratory Exam: Clear to Ausculation Bilateral - Cardiovascular Exam Cardiovascular Exam: REGULAR RHYTHM - GI/Abdominal Exam GI & Abdominal Exam: Normal Bowel Sounds - Neurological Exam Neurological Exam: Awake, Oriented x3 Assessment and Plan (1) HLD (hyperlipidemia) Status: Chronic (2) Hypothyroidism Status: Chronic (3) Depression Status: Acute (4) Rhinitis Status: Acute - Assessment and Plan (Free Text) Plan: Cont meds Cont tx Cont meds Flonase nasal spray BID
[2019-02-05 05:50] VITALS: BP 129/83; PULSE 70; RESP 18; TEMP 97.2
[2019-02-05] MEDS: Levothyroxine 88 MCG TAB PO SCH (06:16)
[2019-02-05 08:09] LABS: BASO % 0.4 % (0.0-2.0); EOS % 0.3 % (0.0-4.0); HEMOGLOBIN 14.2 g/dL (12.0-18.0); LYMPH # 1.7 K/uL (1.0-4.3); LYMPH % 25.3 % (20.0-40.0); MEAN CELL VOLUME 86.6 fl (80.0-94.0); MEAN CORPUSCULAR HEMOGLOBIN 28.9 pg (27.0-31.0); MEAN CORPUSCULAR HGB CONC 33.4 g/dL (33.0-37.0); MONO # 1.3 K/uL (0.0-0.8); NEUT # 3.7 K/uL (1.8-7.0); RBC 4.92 Mil/uL (4.40-5.90); RED CELL DISTRIBUTION WIDTH 14.9 % (11.5-14.5); WHITE BLOOD COUNT 6.8 K/uL (4.8-10.8)
[2019-02-05] MEDS: Cholecalciferol 400 Intl Units Tab PO SCH (08:36)
[2019-02-05] MEDS: Multivitamin With Minerals Tab PO SCH (08:38)
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
== END 2019-02-05 15:50 | disposition home or self-care (01) | DRG 885 ==
LOC: H.ER 17:32 → H.ERHOLD 12-08 02:13 → H.STEP 12-08 03:52
PROVIDERS: ADMIT Psychiatry & Neurology Psychiatry; ATTEND Psychiatry & Neurology Psychiatry
PROC: GZHZZZZ Group Psychotherapy (ICD-10-PCS; principal; 2018-12-08)
PROC: GZ51ZZZ Individual Psychotherapy, Behavioral (ICD-10-PCS; 2018-12-08)
PROC: GZ56ZZZ Individual Psychotherapy, Supportive (ICD-10-PCS; 2018-12-08)
PROC: GZB2ZZZ Electroconvulsive Therapy, Bilateral-Single Seizure (ICD-10-PCS; 2018-12-27)
PROC: GZB2ZZZ Electroconvulsive Therapy, Bilateral-Single Seizure (ICD-10-PCS; 2018-12-29)
PROC: GZB2ZZZ Electroconvulsive Therapy, Bilateral-Single Seizure (ICD-10-PCS; 2019-01-01)
PROC: GZB2ZZZ Electroconvulsive Therapy, Bilateral-Single Seizure (ICD-10-PCS; 2019-01-03)
PROC: GZB2ZZZ Electroconvulsive Therapy, Bilateral-Single Seizure (ICD-10-PCS; 2019-01-05)
PROC: GZB2ZZZ Electroconvulsive Therapy, Bilateral-Single Seizure (ICD-10-PCS; 2019-01-08)
PROC: GZB2ZZZ Electroconvulsive Therapy, Bilateral-Single Seizure (ICD-10-PCS; 2019-01-10)
PROC: GZB2ZZZ Electroconvulsive Therapy, Bilateral-Single Seizure (ICD-10-PCS; 2019-01-12)
PROC: GZB2ZZZ Electroconvulsive Therapy, Bilateral-Single Seizure (ICD-10-PCS; 2019-01-15)
PROC: GZB2ZZZ Electroconvulsive Therapy, Bilateral-Single Seizure (ICD-10-PCS; 2019-01-17)
PROC: GZB2ZZZ Electroconvulsive Therapy, Bilateral-Single Seizure (ICD-10-PCS; 2019-01-19)
PROC: GZB2ZZZ Electroconvulsive Therapy, Bilateral-Single Seizure (ICD-10-PCS; 2019-01-22)
PROC: GZB2ZZZ Electroconvulsive Therapy, Bilateral-Single Seizure (ICD-10-PCS; 2019-01-24)
PROC: GZB2ZZZ Electroconvulsive Therapy, Bilateral-Single Seizure (ICD-10-PCS; 2019-01-31)
DX: F33.3 Major depressive disorder, recurrent, severe with psychotic symptoms (principal); R45.851 Suicidal ideations; F42.9 Obsessive-compulsive disorder, unspecified; F43.10 Post-traumatic stress disorder, unspecified; J31.0 Chronic rhinitis; K59.00 Constipation, unspecified; Z62.810 Personal history of physical and sexual abuse in childhood; Z79.899 Other long term (current) drug therapy; Z91.5 Personal history of self-harm; D64.9 Anemia, unspecified; K29.70 Gastritis, unspecified, without bleeding; M54.2 Cervicalgia; E03.9 Hypothyroidism, unspecified; E78.00 Pure hypercholesterolemia, unspecified; E78.5 Hyperlipidemia, unspecified; R51 Headache; Z88.0 Allergy status to penicillin

== ENCOUNTER 2019-02-07 06:28 | Day surgery (SDC) | payer MEDICARE ==
[2019-02-07 07:10] VITALS: BMI 27.7
[2019-02-07] MEDS ORDERED: Lactated Ringer's 500 ML IV ONE (08:17)
[2019-02-07] MEDS ORDERED: Propofol 10 mg/ml Inj (20 ML) ONE (08:23)
[2019-02-07] MEDS ORDERED: Succinylcholine 200 mg/10 ml Inj IV ONE (08:27)
[2019-02-07] MEDS ORDERED: Lactated Ringer's 1,000 ML IV SCH (09:00)
--- NOTE | 2019-02-07 09:40 | PCM.ECT ---
Electroconvulsive Therapy Note - Procedure: ECT Preprocedure Diagnosis: MAJOR DEPRESSV DISORDER, RECURRENT, SEVERE W PSYCH SYMPTOMS Court Ordered: No - Number of ECT this course Unilateral: 15 - Assessment/Plan Assessment: charge 288 mc energy 41.1 j stat imped 470 ohms dyn imped 178 ohms pulse width 0.5 msec freq 45 hz duration 8 sec current 800ma seizure duration 43 sec anesthesia succinyl choline/ 100 propofol 150 bp/ 132/80 HR 79 PULSE OXI 99% pt tolerated treatment well, no reported side effects of anesthesia PT GIVEN DISCHARGE INSTRUCTIONS BY PACU TEAM NEXT TREATMENT 02/14/19 Medication Plan: succinylcholine, propofol - Treatment Parameters Setting: Unilateral
[2019-02-07 10:51] VITALS: BP 125/72; PULSE 83; RESP 20; TEMP 97; O2SAT 99
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
== END 2019-02-07 07:15 | disposition home or self-care (01) ==
LOC: H.OPSURG 06:28
PROVIDERS: ATTEND Psychiatry & Neurology Psychiatry
DX: F33.3 Major depressive disorder, recurrent, severe with psychotic symptoms (principal); E78.5 Hyperlipidemia, unspecified; D64.9 Anemia, unspecified; K29.70 Gastritis, unspecified, without bleeding; F43.10 Post-traumatic stress disorder, unspecified
CPT/HCPCS: 90870; J0330; J2704; J7120

== ENCOUNTER → 2019-02-14 | Day surgery (SDC) | payer MEDICARE ==
[2019-02-07 07:10] VITALS: BMI 27.7
[~2019-02-14] MED LIST: Lactated Ringer's 1,000 ML IV SCH; Lactated Ringer's 500 ML IV ONE; Propofol 10 mg/ml Inj (20 ML) ONE; Succinylcholine 200 mg/10 ml Inj IV ONE
[2019-02-14 06:52] VITALS: RESP 18
--- NOTE | 2019-02-14 09:07 | PCM.ECT ---
Electroconvulsive Therapy Note - Procedure: ECT Preprocedure Diagnosis: MAJOR DEPRESSV DISORDER, RECURRENT, SEVERE W PSYCH SYMPTOMS Court Ordered: No Current treatment number: 16 - Number of ECT this course Unilateral: 4 Bilateral: 12 - Assessment/Plan Assessment: continuation treatment number 4 unilateral electrode placement charge 288 mc energy 69.6 j stat imp 830ohms dyn imped 293 ohms pulse width 0.5 msec frequency 45 hz duration 8.0 sec current 800 ma seizure duration 50 sec anesthesia propofol 150 succinyl choline 100 vitals bp/ 125/79 hr 82 pulse oximetery 99% pt tolerated treatment well, no reported side effects Medication Plan: succinylcholine, propofol - Treatment Parameters Setting: Unilateral
[2019-02-14 10:29] VITALS: O2SAT 99
[2019-02-14 12:06] VITALS: BP 157/63; PULSE 67; TEMP 97.6
== END | disposition home or self-care (01) ==
LOC: H.OPSURG 06:24
PROVIDERS: ATTEND Psychiatry & Neurology Psychiatry
DX: F33.3 Major depressive disorder, recurrent, severe with psychotic symptoms (principal); E78.5 Hyperlipidemia, unspecified; D64.9 Anemia, unspecified; K29.50 Unspecified chronic gastritis without bleeding; F42.9 Obsessive-compulsive disorder, unspecified; F43.10 Post-traumatic stress disorder, unspecified
CPT/HCPCS: J0330; J2704; J7120

== ENCOUNTER 2019-03-14 06:20 | Day surgery (SDC) | payer MEDICARE ==
[2019-03-14] MEDS ORDERED: Propofol 10 mg/ml Inj (20 ML) ONE (08:34)
[2019-03-14] MEDS ORDERED: Succinylcholine 200 mg/10 ml Inj IV ONE (08:35)
[2019-03-14 09:08] VITALS: O2SAT 99
[2019-03-14] MEDS ORDERED: Lactated Ringer's 1,000 ML IV SCH (09:15)
--- NOTE | 2019-03-14 09:17 | PCM.ECT ---
Electroconvulsive Therapy Note - Procedure: ECT Preprocedure Diagnosis: MAJOR DEPRESSV DISORDER, RECURRENT, SEVERE W PSYCH SYMPTOMS Current treatment number: 17 - Number of ECT this course Unilateral: 5 Bilateral: 12 - Assessment/Plan Assessment: anesthesia propofol 150 succinyl 100 maintenance treatment number 17 charge 288 energy 50.7j imp 630 ohms pulse width 0.5 msec freq 45 hz duration 8 sec current 800ma seizure duration 49 sec pt tolerated treatment well history and physical ekg cbc metabolic pannel done by PMD DR Linn, on 02/20/19, he medically cleared pt for ECT. results were reviewed before procedure and Medication Plan: succinylcholine, propofol - Treatment Parameters Setting: Unilateral Charge amp (in %): 288
[2019-03-14 11:19] VITALS: BP 154/89; PULSE 66; RESP 20; TEMP 98.6
== END 2019-03-14 11:45 | disposition home or self-care (01) ==
LOC: H.OPSURG 06:20
PROVIDERS: ATTEND Psychiatry & Neurology Psychiatry
DX: F33.3 Major depressive disorder, recurrent, severe with psychotic symptoms (principal); E78.5 Hyperlipidemia, unspecified; E03.9 Hypothyroidism, unspecified; D64.9 Anemia, unspecified; J31.0 Chronic rhinitis
CPT/HCPCS: 90870; J0330; J2704; J7120